=== PATIENT | female | born 1940 | race Caucasian/White ===

== ENCOUNTER 2016-12-29 06:11 | Inpatient (IN) | payer MEDICARE, BC ==
[2016-12-29] MEDS ORDERED: MORPHINE SULFATE 10 MG/ML INJ IV ONE (06:21)
[2016-12-29] MEDS ORDERED: NORMAL SALINE 1000 ML 1,000 ML IV ONE (06:21)
[2016-12-29] MEDS ORDERED: ONDANSETRON HCL INJ/PF 4 MG/2 ML SDV IV ONE (06:58)
[2016-12-29] MEDS ORDERED: ONDANSETRON HCL INJ/PF 4 MG/2 ML SDV ONE (07:02)
[2016-12-29 07:18] LABS: ABSOLUTE EOSINOPHILS # (AUTO) 0.1 10^3/uL (0.0-0.6); ABSOLUTE MONOCYTES (AUTO) 0.4 10^3/uL (0.1-1.4); ABSOLUTE NEUT (AUTO) 11.7 10^3/uL (1.7-8.2); BASOPHILS % (AUTO) 0.2 % (0-2); EOSINOPHILS % (AUTO) 0.4 % (0-6); HEMATOCRIT 38.1 % (36.0-47.0); HEMOGLOBIN 12.9 g/dL (12.0-15.5); HGB HCT DIFFERENCE 0.6; LYMPHOCYTES % (AUTO) 13.8 % (13-45); MEAN CORPUSCULAR HEMOGLOBIN 31.6 pg (27.0-33.4); MEAN CORPUSCULAR HGB CONC 33.7 g/dL (32.0-36.0); MEAN CORPUSCULAR VOLUME 94 fl (80-97); MONOCYTES % (AUTO) 2.5 % (3-13); RED BLOOD COUNT 4.07 10^6/uL (3.72-5.28); RED CELL DISTRIBUTION WIDTH 14.9 % (11.5-14.0); SEGMENTED NEUTROPHILS % (AUTO) 83.1 % (42-78); WHITE BLOOD COUNT 14.1 10^3/uL (4.0-10.5)
--- NOTE | 2016-12-29 07:25 | ER Document Report ---
ED General - General Chief Complaint: Abdominal Pain >50 Stated Complaint: FLANK PAIN Time Seen by Provider: 12/29/16 06:14 Mode of Arrival: Medic Information source: Patient Notes: 76-year-old female who was admitted during for small bowel obstruction presents with complaints of abdominal pain that radiates to her right clavicle. Patient states she has had the gallbladder taken out denies any fevers or chills TRAVEL OUTSIDE OF THE [place] IN LAST 30 DAYS: No - HPI Onset: Just prior to arrival - 2 hours prior to arrival Onset/Duration: Sudden Quality of pain: Sharp Severity: Moderate Pain Level: 2 Associated symptoms: Nausea Exacerbated by: Denies Relieved by: Denies Similar symptoms previously: Yes Recently seen / treated by doctor: Yes - Related Data Allergies/Adverse Reactions: Sulfa (Sulfonamide Antibiotics) Allergy (Unknown, Verified 05/25/11 11:16) rash acetaminophen [From Percocet] Adverse Reaction (Verified 03/12/14 14:09) Hallucinations oxycodone HCl [From Percocet] Adverse Reaction (Verified 03/12/14 14:09) Hallucinations Past Medical History - Social History Smoking Status: Never Smoker Cigarette use (# per day): No Chew tobacco use (# tins/day): No Smoking Education Provided: No Family History: Reviewed & Not Pertinent Patient has suicidal ideation: No Patient has homicidal ideation: No - Past Medical History Cardiac Medical History: Reports: Hx Hypercholesterolemia Denies: Hx Coronary Artery Disease, Hx Heart Attack, Hx Hypertension Pulmonary Medical History: Denies: Hx Asthma, Hx Bronchitis, Hx COPD, Hx Pneumonia Neurological Medical History: Denies: Hx Cerebrovascular Accident, Hx Seizures Endocrine Medical History: Reports: Hx Diabetes Mellitus Type 2 Renal/ Medical History: Denies: Hx Peritoneal Dialysis Musculoskeltal Medical History: Reports Hx Arthritis Psychiatric Medical History: Denies: Hx Depression Past Surgical History: Reports: Hx Hysterectomy. Denies: Hx Pacemaker - Immunizations Hx Diphtheria, Pertussis, Tetanus Vaccination: No Hx Pneumococcal Vaccination: 05/21/15 Review of Systems - Review of Systems Notes: REVIEW OF SYSTEMS: CONSTITUTIONAL : Denies fever, chills, or sweats. Denies recent illness. EENT: Denies eye, ear, throat, or mouth pain or symptoms. Denies nasal or sinus congestion or discharge. Denies throat, tongue, or mouth swelling or difficulty swallowing. CARDIOVASCULAR: Denies chest pain. Denies palpitations or racing or irregular heart beat. Denies ankle edema. RESPIRATORY: Denies cough, cold, or chest congestion. Denies shortness of breath, difficulty breathing, or wheezing. GASTROINTESTINAL: Abdominal pain nausea GENITOURINARY: Denies difficulty urinating, painful urination, burning, frequency, blood in urine, or discharge. FEMALE GENITOURINARY: Denies vaginal bleeding, heavy or abnormal periods, irregular periods. Denies vaginal discharge or odor. MUSCULOSKELETAL: Denies back or neck pain or stiffness. Denies joint pain or swelling. SKIN: Denies rash, lesions or sores. HEMATOLOGIC : Denies easy bruising or bleeding. LYMPHATIC: Denies swollen, enlarged glands. NEUROLOGICAL: Denies confusion or altered mental status. Denies passing out or loss of consciousness. Denies dizziness or lightheadedness. Denies headache. Denies weakness or paralysis or loss of use of either side. Denies problems with gait or speech. Denies sensory loss, numbness, or tingling. Denies seizures. PSYCHIATRIC: Denies anxiety or stress. Denies depression, suicidal ideation, or homicidal ideation. ALL OTHER SYSTEMS REVIEWED AND NEGATIVE. PHYSICAL EXAMINATION: GENERAL: Well-appearing, well-nourished and in mild distress. HEAD: Atraumatic, normocephalic. EYES: Pupils equal round and reactive to light, extraocular movements intact, conjunctiva are normal. ENT: Nares patent, oropharynx clear without exudates. Moist mucous membranes. NECK: Normal range of motion, supple without lymphadenopathy LUNGS: Breath sounds clear to auscultation bilaterally and equal. No wheezes rales or rhonchi. HEART: Regular rate and rhythm without murmurs ABDOMEN: Firm mildly distended abdomen Female : deferred Musculoskeletal: Normal range of motion, no pitting or edema. No cyanosis. NEUROLOGICAL: Cranial nerves grossly intact. Normal speech, normal gait. Normal sensory, motor exams PSYCH: Normal mood, normal affect. SKIN: Warm, Dry, normal turgor, no rashes or lesions noted. Dictation was performed using [employer] voice recognition software Physical Exam - Vital signs Vitals: Temp Pulse Resp BP Pulse Ox 97.8 F 68 18 113/53 L 98 12/29/16 06:18 12/29/16 06:18 12/29/16 06:18 12/29/16 06:18 12/29/16 06:18 Course - Re-evaluation Re-evalutation: 12/29/16 07:25 Initial concern is for perforation versus bowel obstruction, patient unfortunately refuses to drink contrast was immediately seen by myself upon arrival by EMS, orders results are pending at this time 12/29/16 08:33 CT is consistent with a perforation, patient was discussed with the surgeon who will be taking her to the operating room immediately Antibiotics have been ordered - Vital Signs Vital signs: Temp Pulse Resp BP Pulse Ox 97.8 F 68 18 113/53 L 98 12/29/16 06:18 12/29/16 06:18 12/29/16 06:18 12/29/16 06:18 12/29/16 06:18 - Laboratory Result Diagrams: 12/29/16 06:46 12/29/16 06:46 Laboratory results interpreted by me: 12/29/16 12/29/16 06:46 06:46 WBC 14.1 H RDW 14.9 H Seg Neutrophils % 83.1 H Monocytes % 2.5 L Absolute Neutrophils 11.7 H BUN 30 H Est GFR (Non-Af Amer) 56 L Glucose 137 H Direct Bilirubin 0.5 H Total Protein 5.5 L - Diagnostic Test Radiology reviewed: Image reviewed, Reports reviewed - Perforation Discharge - Discharge Clinical Impression: Perforation bowel Abdominal pain Qualifiers: Abdominal location: generalized Qualified Code(s): R10.84 - Generalized abdominal pain Condition: Critical Disposition: ADMITTED INPATIENT Admitting Provider: Surgicalist Unit Admitted: Surgical Floor Referrals: BELÉN MIN MD [Primary Care Provider] - Follow up as needed
[2016-12-29 07:26] LABS: ALANINE AMINOTRANSFERASE 20 U/L (9-52); ALBUMIN 3.5 g/dL (3.5-5.0); ALKALINE PHOSPHATASE 73 U/L (38-126); ANION GAP 9 (5-19); ASPARTATE AMINO TRANSFERASE 17 U/L (14-36); BILIRUBIN,DIRECT 0.5 mg/dL (0.0-0.4); BILIRUBIN,TOTAL 0.6 mg/dL (0.2-1.3); BLOOD UREA NITROGEN 30 mg/dL (7-20); CALCIUM 10.1 mg/dL (8.4-10.2); CARBON DIOXIDE 27 mmol/L (22-30); CHLORIDE 101 mmol/L (98-107); CREATININE RESULT 0.97 mg/dL (0.52-1.25); GLUCOSE 137 mg/dL (75-110); POTASSIUM 4.1 mmol/L (3.6-5.0); SODIUM 137.3 mmol/L (137-145); TOTAL PROTEIN 5.5 g/dL (6.3-8.2)
[2016-12-29] MEDS ORDERED: ERTAPENEM SODIUM INJ 1 GM VIAL IV ONE (08:28)
--- NOTE | 2016-12-29 08:34 | RADIOLOGY REPORT (SQ) ---
EXAM DESCRIPTION: CT ABD/PELVIS WITH IV ONLY COMPLETED DATE/TIME: 12/29/2016 8:04 am REASON FOR STUDY: abd pain COMPARISON: 07/09/2009 TECHNIQUE: CT scan of the abdomen and pelvis performed using helical scanning technique with dynamic intravenous contrast injection. No oral contrast. Images reviewed with lung, soft tissue, and bone windows. Reconstructed coronal and sagittal MPR images reviewed. Delayed images for evaluation of the urinary system also acquired. All images stored on PACS. All CT scanners at this facility use dose modulation, iterative reconstruction, and/or weight based d osing when appropriate to reduce radiation dose to as low as reasonably achievable (ALARA). [facility]: Dose Right [facility]: CareDose [facility]: Dose Right [facility]: Teradose 4D [facility]: Energy Points CONTRAST TYPE AND DOSE: contrast/concentration: Isovue 370.00 mg/ml; Total Contrast Delivered: 83.0 ml; Total Saline Delivered: 68.0 ml RENAL FUNCTION: BUN 30 creatinine 1.0 RADIATION DOSE: Up-to-date CT equipment and radiation dose reduction techniques were employed. CTDIv ol: 11.2 - 16.0 mGy. DLP: 1456 mGy-cm.. LIMITATIONS: None. FINDINGS: LOWER CHEST: Cardiomegaly. Hiatal hernia. LIVER: Normal size. No masses. No dilated ducts. SPLEEN: Normal size. No focal lesions. PANCREAS: No masses. No significant calcifications. No adjacent inflammation or peripancreatic fluid collections. Pancreatic duct not dilated. GALLBLADDER: Surgically absent. ADRENAL GLANDS: No significant masses or asymmetry. RIGHT KIDNEY AND URETER: No solid masses. No significant calcifications. No hydronephrosis or hyd roureter. LEFT KIDNEY AND URETER: No solid masses. No significant calcifications. No hydronephrosis or hydr oureter. AORTA AND VESSELS: No aneurysm. RETROPERITONEUM: No retroperitoneal adenopathy, hemorrhage or masses. BOWEL AND PERITONEAL CAVITY: Pneumoperitoneum. No evidence of bowel obstruction. Clips left upper q uadrant and right lower quadrant. Small amount of ascites. APPENDIX: Not visualized. PELVIS: Small amount of free fluid. ABDOMINAL WALL: No masses. No hernias. BONES: No significant or acute findings. OTHER: No other significant finding. IMPRESSION: Pneumoperitoneum, most likely due to perforated gastric or duodenal ulcer. COMMENT: Pertinent findings on the imaging study reported as a CRITICAL RESULT to AGUILA MCDERMOTT DO at08:29 on 12/29/2016. Category of Critical Result: Pneumoperitoneum. TECHNICAL DOCUMENTATION: JOB ID: [id number] Quality ID # [id number]: Final reports with documentation of one or more dose reduction techniques (e.g., Au tomated exposure control, adjustment of the mA and/or kV according to patient size, use of iterative reconstruction technique) 2010 [employer]- All Rights Reserved
[2016-12-29] MEDS ORDERED: NORMAL SALINE 1000 ML 2,000 ML IV ONE (09:15)
--- NOTE | 2016-12-29 09:28 | HISTORY AND PHYSICAL E ---
History and Physical NAME: VINOD MCCARTHY : 1940 AGE: 76Y ADMITTED: 12/29/2016 ROOM: CHIEF COMPLAINT: Abdominal pains. HISTORY OF PRESENT ILLNESS: This is a 76-year-old female complained of abdominal pain around 0430 hours this morning. This was so severe that the patient basically went to the emergency room. CAT scan of the abdomen revealed pneumoperitoneum. Her white count is elevated to 14,000. PAST MEDICAL HISTORY: 1. History of gastric ulcer. 2. Cardiac medical history of hypercholesterolemia. 3. Pulmonary, denies any asthma, bronchitis. 4. Neurologic history, no CVA or seizures. 5. Endocrine, history of diabetes mellitus type 2 off medications at this time. History of hypothyroidism taking Synthroid. 6. Renal/, no dysuria. 7. Musculoskeletal, reports arthritis. 8. Psychiatric history, denies depression. PAST SURGICAL HISTORY: History of hysterectomy for ovarian cancer in 2007 and has had chemotherapy for this. REVIEW OF SYSTEMS: CONSTITUTIONAL: Denies any fever, chills or sweats. EENT: Denies sore throat. Admits to having difficulty hearing and wears eyeglasses. Denies nasal or sinus congestion or discharge. CARDIOVASCULAR: Denies any chest pains. RESPIRATORY: Denies cough or colds. GASTROINTESTINAL: As in HPI, complaining of severe abdominal pains with nausea. GENITOURINARY: Denies dysuria. FEMALE GENITOURINARY: No vaginal bleeding. MUSCULOSKELETAL: Denies any neck pains or joint pains. SKIN: Denies any rash. HEMATOLOGIC: No easy bruisability. LYMPHATIC: Denies swollen glands or enlarged glands. NEUROLOGICAL: Denies confusion or altered mental status. PSYCHIATRIC: Denies anxiety or stress. ALLERGIES: 1. SULFA. 2. PERCOCET. 3. OXYCODONE. SOCIAL HISTORY: Denies smoking, drinking or alcohol use. PHYSICAL EXAMINATION: GENERAL: A well-developed, well-nourished 76-year-old female, alert and oriented complaining of severe abdominal pains. HEENT/NECK: Neck is supple. No thyromegaly. LUNGS: Clear. HEART: Regular rate and rhythm. ABDOMEN: With some guarding and diffuse tenderness, more in the right upper quadrant and epigastric areas. EXTREMITIES: No edema. CAT scan of the abdomen showed free air in the abdomen likely from a gastric ulcer. She had a history of a partial small bowel obstruction Labor Day and no evidence of any obstruction on the CAT scan today. IMPRESSION: 1. Perforated bowel likely from gastric ulcer. 2. History of diabetes mellitus type 2 on no medications at this time. 3. History of hypothyroidism on Synthroid. 4. History of hypercholesterolemia on anticholesterol medication. 5. History of ovarian cancer post total hysterectomy and still being followed at [facility] every year, next appointment will be in January. PLAN: 1. Patient being hydrated right now and started on IV antibiotics. 2. Will need emergency exploratory laparotomy and repair of perforation. DICTATING PHYSICIAN: MELQUIADES BAUMAN M.D. [id number] PHY#: [id number] ID: [id number] JOB#: [id number] ACCT: [id number] cc:MELQUIADES BAUMAN M.D. >
[2016-12-29] MEDS ORDERED: HYDROMORPHONE HCL INJ/PF 2 MG/ML AMPULE IV ONE (09:30)
[2016-12-29] MEDS ORDERED: MIDAZOLAM 2 MG/2 ML INJ ONE (09:33)
[2016-12-29] MEDS ORDERED: FENTANYL CITRATE INJ/PF 250 MCG/5 ML AMPULE ONE (09:33)
[2016-12-29] MEDS ORDERED: PROPOFOL INJ 200 MG/20 ML VIAL IV ONE (09:34)
[2016-12-29] MEDS ORDERED: EPHEDRINE SULFATE INJ 50 MG/1 ML AMPULE ONE (09:34)
[2016-12-29 10:00] LABS: APPEARANCE,URINE CLEAR; BILIRUBIN,URINE NEGATIVE (NEGATIVE); GLUCOSE, URINE NEGATIVE (NEGATIVE); KETONES,URINE NEGATIVE (NEGATIVE); LEUKOCYTE ESTERASE,URINE NEGATIVE (NEGATIVE); NITRITE,URINE NEGATIVE (NEGATIVE); PROTEIN,URINE NEGATIVE (NEGATIVE); UROBILINOGEN,URINE NEGATIVE mg/dL (<2.0)
[2016-12-29] MEDS ORDERED: KETAMINE HCL INJ 500 MG/10 ML VIAL ONE (10:30)
[2016-12-29] MEDS ORDERED: PROMETHAZINE HCL INJ 25 MG/1 ML VIAL IV PRN ×2 (10:55)
[2016-12-29] MEDS ORDERED: MORPHINE SULFATE 10 MG/ML INJ IV PRN (10:55)
[2016-12-29] MEDS ORDERED: FENTANYL CITRATE INJ/PF 100 MCG/2 ML AMPUL IV PRN ×3 (10:55)
[2016-12-29] MEDS ORDERED: DIPHENHYDRAMINE HCL 50 MG/ML VIAL IV PRN (10:55)
[2016-12-29] MEDS ORDERED: ROCURONIUM BROMIDE INJ 50 MG/5 ML VIAL IV ONE (15:54)
[2016-12-29] MEDS ORDERED: SUCCINYLCHOLINE CHLORIDE INJ 200 MG/10 ML VIAL ONE (15:54)
[2016-12-29] MEDS ORDERED: PROPOFOL 100 ML IV ONE (16:01)
[2016-12-29] MEDS ORDERED: ENOXAPARIN SODIUM INJ 40 MG/0.4 ML DISP.SYRIN SUBCUT ONE (17:00)
--- NOTE | 2016-12-29 17:28 | RADIOLOGY REPORT (SQ) ---
EXAM DESCRIPTION: CHEST SINGLE VIEW COMPLETED DATE/TIME: 12/29/2016 5:20 pm REASON FOR STUDY: ETT/NG placement COMPARISON: 03/11/2014 EXAM PARAMETERS: NUMBER OF VIEWS: One view. TECHNIQUE: Single frontal radiographic view of the chest acquired. RADIATION DOSE: NA LIMITATIONS: None. FINDINGS: LUNGS AND PLEURA: No infiltrates or masses. There may be a minimal left pleural effusion. MEDIASTINUM AND HILAR STRUCTURES: No masses. Contour normal. HEART AND VASCULAR STRUCTURES: Heart normal in size. Normal vasculature. BONES: No acute findings. HARDWARE: An endotracheal tube has its tip at the level of the top of the aortic arch, about 4 cm fro m the carlos. An NG tube extends to the body of the stomach. OTHER: No other significant finding. IMPRESSION: Minimal left pleural effusion. Tube placement as described. TECHNICAL DOCUMENTATION: JOB ID: [id number]
[2016-12-29] MEDS: PROPOFOL 100 ML IV PRN ×2 (17:43→23:54)
[2016-12-29] MEDS ORDERED: NORMAL SALINE 1000 ML 1,000 ML IV PRN (18:49)
[2016-12-29 19:06] LABS: HEMOGLOBIN 13.4 g/dL (12.0-15.5); HGB HCT DIFFERENCE 0.2; MEAN CORPUSCULAR HEMOGLOBIN 31.8 pg (27.0-33.4); MEAN CORPUSCULAR HGB CONC 33.4 g/dL (32.0-36.0); MEAN CORPUSCULAR VOLUME 95 fl (80-97); WHITE BLOOD COUNT 10.6 10^3/uL (4.0-10.5)
[2016-12-29 19:19] LABS: ARTERIAL BLOOD BASE EXCESS -8.6 mmol/L; ARTERIAL BLOOD O2 SATURATION 97.8 % (94-98)
[2016-12-29 19:24] LABS: BASOPHILS % (MANUAL) 0 % (0-2); EOSINOPHILS % (MANUAL) 0 % (0-6); LYMPHOCYTES % (MANUAL) 1 % (13-45); TOTAL CELLS COUNTED 100
[2016-12-29 19:26] LABS: ANISOCYTOSIS SLIGHT; OVALOCYTES 1+; PLATELET CLUMPS PRESENT; POIKILOCYTOSIS SLIGHT; POLYCHROMASIA SLIGHT; SCHISTOCYTES SLIGHT
[2016-12-29 19:27] LABS: BAND NEUTROPHILS % (MANUAL) 19 % (3-5)
--- NOTE | 2016-12-29 19:43 | OPERATIVE REPORT E ---
Operative Report NAME: VINOD MCCARTHY : 1940 AGE: 76Y DATE OF SURGERY: 12/29/2016 ROOM: 607 PREOPERATIVE DIAGNOSES: 1. Perforated gastric ulcer. 2. Recent history of small bowel obstruction that partially resolved spontaneously, happened Labor Day. POSTOPERATIVE DIAGNOSES: 1. Perforated gastric ulcer. 2. Recent history of small bowel obstruction that partially resolved spontaneously, happened Labor Day. 3. Extensive adhesions. OPERATION: 1. Repair of perforated gastric ulcer with omental patch. 2. Extensive enterolysis. 3. Small bowel resection. SURGEON: MELQUIADES BAUMAN M.D. INDICATIONS: This is a 76-year-old female who apparently was admitted to [facility] on Labor Day for bowel obstruction. She was discharged but the family claims that she can only eat pureed food. Last night she ate a regular diet and at 4:30 this morning, complained of severe abdominal pains. She was immediately brought to the emergency room, where a CAT scan of the abdomen revealed a pneumoperitoneum likely from a perforated gastric ulcer. The patient had history of gastric ulcer. DESCRIPTION OF PROCEDURE: After adequate general anesthesia, patient was placed in supine position and the abdomen prepped and draped in the usual sterile fashion. Appropriate timeout was then obtained. Next, a midline incision was made from the xiphoid to just below the umbilicus. Abdominal cavity was then entered and there is a lot of cloudy fluid noted. With the use of a Bookwalter retractor, the perforation on the anterior aspect of the stomach wall close to the pylorus was then noted. A small perforation about maybe 2 to 3 mm with a lot of firm area around the perforation. A couple of sutures using 2-0 silk were used to close the perforation. A piece of omentum was then used as a patch over the perforation using 2-0 Vicryl. Following this, the abdominal cavity was then irrigated with at least 3 L of saline. However, on further exploration the patient did have extensive adhesions started on the abdominal wall opposite the previous hysterectomy incision for her ovarian CA in 2007. Adhesions were lysed and the incision extended down to the pubis. A lot of adhesions noted and this was actually in the area of the right lower quadrant more towards the area of the right, lateral to the bladder. This was lysed gingerly and wearing a headlight for better visibility. Unfortunately, a long area of the bowel wall was denuded though not completely opening the bowel. Only the mucosa appears to be intact for at least a distance of about 5 cm. Because of this, this section of the bowel was divided and subsequently reapproximated with a stapling device in a functional yuty-tw-unap anastomosis. The defect in the mesentery was then reapproximated with interrupted sutures using 2-0 Vicryl. Extensive enterolysis was then further carried out together with adhesions towards the area of the sigmoid colon. These adhesions were lysed. It took at least 2 hours to release all the adhesions. I did not see any obvious evidence of malignancy or mass. After the adhesiolysis and resection of small bowel, the abdominal cavity was then irrigated with at least 4 L of saline until return flow was clear. The NG tube in the stomach was left close to the repair. The patient also had a previous laparoscopic gallbladder surgery and there was also a little adhesion due to this that was also lysed. There was evidence of partial obstruction since the proximal small bowel to the adhesions on the abdominal wall was dilated, and distal to it the bowel appears to be partially collapsed. Following this and the irrigation, a piece Seprafilm was placed in the pelvis where the adhesion was noted. Incidentally during dissection, there was a little opening in what appears to be the left iliac vein, and this was controlled with a single suture using 3-0 Prolene. Also another Seprafilm was then placed on top of the small bowel. Also the small bowel was run from the cecum all the way into the ligament of Treitz and noted to be intact. The appendix was noted to be normal and left in place. The fascial defect was then closed with running suture using a single arm #1 PDS starting from both ends and meeting and tying together just above the umbilicus. The subcu was then copiously irrigated with saline solution. There was a little leak of small bowel contents prior to the anastomosis of the small bowel. This was taken care of by copious irrigation of 4 to 5 L of saline and also irrigation of the subcu layer. The skin was then closed with alma delia. Sterile dressings were placed over the operative site. Needle, instrument, and sponge count were all correct and estimated blood loss was about 200 mL. Patient was brought to the Intensive Care Unit in guarded condition, still intubated. DICTATING PHYSICIAN: MELQUIADES BAUMAN M.D. [id number] PHY#: [id number] ID: [id number] JOB#: [id number] ACCT: [id number] cc:MELQUIADES BAUMAN M.D. >
[2016-12-29] MEDS ORDERED: HYDROMORPHONE HCL INJ/PF 2 MG/ML AMPULE ONE (19:55)
[2016-12-29] MEDS ORDERED: HYDROMORPHONE HCL INJ/PF 2 MG/ML AMPULE IV PRN (19:55)
[2016-12-29] MEDS ORDERED: VANCOMYCIN HCL 1,500 MG in DEXTROSE 5%-WATER 250 ML IV ONE (20:00)
[2016-12-29] MEDS ORDERED: PHENYLEPHRINE HCL INJ/PF 10 MG/1 ML SDV ONE (20:28)
[2016-12-29] MEDS: DEXTROSE 5%-WATER 250 ML with PHENYLEPHRINE HCL 40 MG IV PRN ×2 (20:48)
[2016-12-29] MEDS ORDERED: NORMAL SALINE 500 ML IV ONE (21:30)
[2016-12-29] MEDS: CLINDAMYCIN 600 MG/D5W RTU 600 MG/50 ML RTUPB IV SCH (22:48)
[2016-12-29] MEDS: FAMOTIDINE INJ/PF 20 MG/2 ML SDV IV SCH (22:48)
[2016-12-29] MEDS: IMIPENEM/CILASTATIN SODIUM 500 MG in DEXTROSE 5%-WATER 100 ML IV SCH (23:50)
[2016-12-30 04:21] LABS: ABSOLUTE LYMPHOCYTES (AUTO) 1.2 10^3/uL (0.5-4.7); ABSOLUTE MONOCYTES (AUTO) 0.5 10^3/uL (0.1-1.4); ABSOLUTE NEUT (AUTO) 11.5 10^3/uL (1.7-8.2); BASOPHILS % (AUTO) 0.1 % (0-2); HEMATOCRIT 37.8 % (36.0-47.0); HEMOGLOBIN 12.7 g/dL (12.0-15.5); HGB HCT DIFFERENCE 0.3; LYMPHOCYTES % (AUTO) 9.4 % (13-45); MEAN CORPUSCULAR HEMOGLOBIN 31.4 pg (27.0-33.4); MEAN CORPUSCULAR HGB CONC 33.6 g/dL (32.0-36.0); MEAN CORPUSCULAR VOLUME 93 fl (80-97); MONOCYTES % (AUTO) 3.4 % (3-13); RED BLOOD COUNT 4.05 10^6/uL (3.72-5.28); RED CELL DISTRIBUTION WIDTH 15.2 % (11.5-14.0); SEGMENTED NEUTROPHILS % (AUTO) 87.1 % (42-78); WHITE BLOOD COUNT 13.2 10^3/uL (4.0-10.5)
[2016-12-30 04:32] LABS: ALANINE AMINOTRANSFERASE 23 U/L (9-52); ALBUMIN 2.5 g/dL (3.5-5.0); ALKALINE PHOSPHATASE 49 U/L (38-126); ANION GAP 9 (5-19); ASPARTATE AMINO TRANSFERASE 24 U/L (14-36); BILIRUBIN,DIRECT 0.5 mg/dL (0.0-0.4); BILIRUBIN,TOTAL 0.7 mg/dL (0.2-1.3); BLOOD UREA NITROGEN 26 mg/dL (7-20); CALCIUM 8.6 mg/dL (8.4-10.2); CARBON DIOXIDE 22 mmol/L (22-30); CHLORIDE 105 mmol/L (98-107); CREATININE RESULT 0.96 mg/dL (0.52-1.25); GLUCOSE 135 mg/dL (75-110); MAGNESIUM 2.1 mg/dL (1.6-2.3); SODIUM 136.1 mmol/L (137-145); TOTAL PROTEIN 4.6 g/dL (6.3-8.2)
[2016-12-30 04:51] LABS: POTASSIUM 5.2 mmol/L (3.6-5.0)
[2016-12-30] MEDS: CLINDAMYCIN 600 MG/D5W RTU 600 MG/50 ML RTUPB IV SCH ×3 (05:41→22:17)
[2016-12-30] MEDS: IMIPENEM/CILASTATIN SODIUM 500 MG in DEXTROSE 5%-WATER 100 ML IV SCH ×4 (05:42→23:59)
--- NOTE | 2016-12-30 08:19 | RADIOLOGY REPORT (SQ) ---
EXAM DESCRIPTION: CHEST SINGLE VIEW COMPLETED DATE/TIME: 12/30/2016 6:51 am REASON FOR STUDY: vent management COMPARISON: 12/29/2016. EXAM PARAMETERS: NUMBER OF VIEWS: One view. TECHNIQUE: Single frontal radiographic view of the chest acquired. RADIATION DOSE: NA LIMITATIONS: None. FINDINGS: LUNGS AND PLEURA: Mild interstitial prominence and mild pleural thickening in the apices. No focal infiltrates, masses or pneumothorax. No pleural effusion. MEDIASTINUM AND HILAR STRUCTURES: No masses. Contour normal. HEART AND VASCULAR STRUCTURES: Heart normal in size. Normal vasculature. BONES: No acute findings. HARDWARE: Stable endotracheal tube and nasogastric tube. OTHER: No other significant finding. IMPRESSION: STABLE APPEARANCE OF THE CHEST. NO ACUTE FINDINGS. TECHNICAL DOCUMENTATION: JOB ID: [id number]
[2016-12-30] MEDS: PROPOFOL 100 ML IV PRN ×4 (08:49→23:59)
--- NOTE | 2016-12-30 08:53 | PROGRESS NOTE E ---
Progress Note NAME: VINOD MCCARTHY : 1940 AGE: 76Y DATE: 12/30/2016 ROOM: 607 SUBJECTIVE: She is a 76-year-old female who has a past medical history of gastric ulcer in the past, hypercholesterolemia. She was admitted for perforated ulcer and underwent emergency laparotomy, and intubated and mechanically ventilated. The patient is currently on pressor and IV fluids as well as antibiotics. OBJECTIVE: GENERAL: Patient looks very sick on ventilator. VITAL SIGNS: Temperature 98.1, heart rate is 94, blood pressure 112/47, respirations 100% on FiO2 of 40. HEENT: Head normocephalic, atraumatic. Pupils round, reactive to light and accommodation bilaterally. Extraocular movements intact. Ears: Tympanic membranes intact bilaterally. No discharge from the ears. No discharge from the nose. NECK: Supple. No increased JVD. No thyromegaly. No lymphadenopathy. CARDIOVASCULAR: Normal S1, S2. Regular rate and rhythm. No murmur. No gallop. RESPIRATORY: Bilateral crackles. ABDOMEN: Soft. MUSCULOSKELETAL: No edema. NEUROLOGICAL: Awake, but sedated. LABORATORY: White blood count 13, hemoglobin 12.7, hematocrit 37. Sodium 136, potassium 5.2, creatinine 0.9. ASSESSMENT: 1. PERFORATED VISCUS STATUS POST LAPAROTOMY. 2. SEPSIS FROM PERFORATED GASTRIC ULCER. 3. HYPOTHYROIDISM. 4. RESPIRATORY FAILURE ON VENTILATOR. 5. HISTORY OF OVARIAN CANCER STATUS POST HYSTERECTOMY. 6. LEUKOCYTOSIS. PLAN: Continue antibiotics, IV fluids, and pressors. Labs tomorrow morning. The patient is on ventilator and needs to stay for management of perforated viscus and she is on antibiotics. DICTATING PHYSICIAN: OSEAS JEREZ M.D. [id number] PHY#: [id number] ID: [id number] JOB#: [id number] ACCT: [id number] cc: > MTDD
[2016-12-30] MEDS: ENOXAPARIN SODIUM INJ 40 MG/0.4 ML DISP.SYRIN SUBCUT SCH (10:30)
[2016-12-30] MEDS: FAMOTIDINE INJ/PF 20 MG/2 ML SDV IV SCH (10:31)
--- NOTE | 2016-12-30 12:40 | RADIOLOGY REPORT (SQ) ---
EXAM DESCRIPTION: CHEST SPECIAL VIEW COMPLETED DATE/TIME: 12/30/2016 12:20 pm REASON FOR STUDY: Central Line Placement COMPARISON: 12/30/2016. EXAM PARAMETERS: NUMBER OF VIEWS: One view. TECHNIQUE: Single frontal radiographic view of the chest acquired. RADIATION DOSE: NA LIMITATIONS: None. FINDINGS: LUNGS AND PLEURA: No opacities, masses or pneumothorax. No pleural effusion. MEDIASTINUM AND HILAR STRUCTURES: No masses. Contour normal. HEART AND VASCULAR STRUCTURES: Heart normal in size. Normal vasculature. BONES: No acute findings. HARDWARE: Catheter on the right side with the tip at the level of the superior vena cava. Stable end otracheal tube and nasogastric tube. OTHER: No other significant finding. IMPRESSION: INTERVAL CATHETER PLACEMENT DESCRIBED. OTHERWISE NO CHANGE IN APPEARANCE OF THE CHES T. TECHNICAL DOCUMENTATION: JOB ID: [id number]
[2016-12-30 12:57] LABS: ARTERIAL BLOOD BASE EXCESS 0.9 mmol/L; ARTERIAL BLOOD O2 SATURATION 97.3 % (94-98)
[2016-12-30] MEDS ORDERED: NORMAL SALINE INJ/PF 0.9% 10 ML SDV IV PRN (13:20)
--- NOTE | 2016-12-30 14:48 | PROGRESS NOTE E ---
Progress Note NAME: VINOD MCCARTHY : 1940 AGE: 76Y DATE: 12/30/2016 ROOM: 607 SUBJECTIVE: This is her first postop day post repair of perforated gastric ulcer and extensive enterolysis and resection of denuded small bowel. She is still intubated and appears to be still in pains requiring Dilaudid. She also needed pressors when her blood pressure went down to about 55 systolic last night. Her blood pressure right now is improved. Her NG drainage is still considerable, putting out a total of 800 mL since last night. She most likely will need to be continued on intubation for another day. OBJECTIVE: Her abdomen is soft, just mildly distended. PLAN: 1. Continue with IV antibiotics. 2. Continue wean from the pressors. 3. I placed a central line through the right subclavian vein which she tolerated well. Pressors can be placed through the central line. 4. Continue with pain medications and antibiotics. 5. I asked the hospitalist to help us with the medical management and Dr. Montague for pulmonary management and vent management. DICTATING PHYSICIAN: MELQUIADES BAUMAN M.D. [id number] PHY#: [id number] ID: [id number] JOB#: [id number] ACCT: [id number] cc: >
--- NOTE | 2016-12-30 16:28 | OPERATIVE REPORT E ---
Operative Report NAME: VINOD MCCARTHY : 1940 AGE: 76Y DATE OF SURGERY: 12/29/2016 ROOM: 607 PREOPERATIVE DIAGNOSIS: Poor veins for IV access and patient still intubated and needing pressors and other medications after a difficult extensive operation yesterday. POSTOPERATIVE DIAGNOSIS: Poor veins for IV access and patient still intubated and needing pressors and other medications after a difficult extensive operation yesterday. SURGEON: MELQUIADES BAUMAN M.D. PROCEDURE: The patient was placed in the lithotomy position with the patient still intubated. Patient had some sedation given. Next, the right subclavian vein area at the clavicle was then prepped and draped in the usual sterile fashion. Local anesthesia was then infiltrated and the right subclavian vein punctured and the guidewire placed through the needle into the presumed superior vena cava. The needle was removed and the puncture site enlarged. A triple-lumen catheter was inserted through the guidewire and threaded up to a distance of 15 cm. It was then anchored to the skin with 3-0 silk. The three ports aspirated blood easily and injected saline easily. Next a Biopatch was then placed at the insertion site and a transparent dressing placed. A chest x-ray will be obtained. The patient tolerated the procedure well. DICTATING PHYSICIAN: MELQUIADES BAUMAN M.D. [id number] PHY#: [id number] ID: [id number] JOB#: [id number] ACCT: [id number] cc:MELQUIADES BAUMAN M.D. >
--- NOTE | 2016-12-30 18:10 | PDOC PROGRESS REPORT ---
Subjective Progress Note for:: 12/30/16 Subjective:: intubated sedated but restless Physical Exam Vital Signs: Temp Pulse Resp BP Pulse Ox 98.1 F 75 13 112/47 L 100 12/30/16 07:58 12/30/16 08:44 12/29/16 15:55 12/30/16 06:26 12/30/16 08:05 Intake & Output 12/29/16 12/30/16 12/31/16 06:59 06:59 06:59 Intake Total 1596 Output Total 625 515 Balance 971 -515 Weight 79.1 kg General appearance: PRESENT: no acute distress, disheveled, well-developed Head exam: PRESENT: atraumatic, normocephalic Eye exam: PRESENT: conjunctiva pale, EOMI Mouth exam: PRESENT: dry mucosa, neck supple, tongue midline, other - ET tube Neck exam: ABSENT: carotid bruit, JVD, lymphadenopathy, thyromegaly Respiratory exam: PRESENT: crackles, decreased breath sounds, prolonged expiratory phas, rhonchi, symmetrical, unlabored, wheezes. ABSENT: retraction, stridor, tachypnea Cardiovascular exam: PRESENT: irregular rhythm Pulses: PRESENT: normal radial pulses GI/Abdominal exam: PRESENT: other - sp surgery midline wound dry dressing. ABSENT: diminished bowel sounds, distended, guarding, hyperactive bowel sounds, hypoactive bowel sounds, mass, organolmegaly, rebound, rigid, soft, tenderness Rectal exam: PRESENT: deferred Gentrourinary exam: PRESENT: indwelling catheter Musculoskeletal exam: PRESENT: normal inspection Skin exam: PRESENT: dry, warm Results Laboratory Results: 12/30/16 03:54 12/30/16 03:54 12/29/16 12/29/16 12/29/16 18:44 18:44 18:57 WBC 10.6 H RBC 4.20 Hgb 13.4 Hct 40.0 MCV 95 MCH 31.8 MCHC 33.4 RDW 15.0 H Plt Count 215 Seg Neutrophils % Not Reportable Lymphocytes % Not Reportable Monocytes % Not Reportable Eosinophils % Not Reportable Basophils % Not Reportable Absolute Neutrophils Not Reportable Absolute Lymphocytes Not Reportable Absolute Monocytes Not Reportable Absolute Eosinophils Not Reportable Absolute Basophils Not Reportable Carbonic Acid 1.25 HCO3/H2CO3 Ratio 14:1 ABG pH 7.26 L ABG pCO2 41.5 ABG pO2 119.8 H ABG HCO3 18.0 L ABG O2 Saturation 97.8 ABG Base Excess -8.6 FiO2 40% Sodium Potassium Chloride Carbon Dioxide Anion Gap BUN Creatinine Est GFR ( Amer) Est GFR (Non-Af Amer) Glucose Lactic Acid 7.1 H Calcium Magnesium Total Bilirubin AST ALT Alkaline Phosphatase Total Protein Albumin 12/30/16 12/30/16 12/30/16 03:54 03:54 05:30 WBC 13.2 H RBC 4.05 Hgb 12.7 Hct 37.8 MCV 93 MCH 31.4 MCHC 33.6 RDW 15.2 H Plt Count 227 Seg Neutrophils % 87.1 H Lymphocytes % 9.4 L Monocytes % 3.4 Eosinophils % 0.0 Basophils % 0.1 Absolute Neutrophils 11.5 H Absolute Lymphocytes 1.2 Absolute Monocytes 0.5 Absolute Eosinophils 0.0 Absolute Basophils 0.0 Carbonic Acid 0.73 L HCO3/H2CO3 Ratio 27:1 ABG pH 7.54 H ABG pCO2 24.1 L ABG pO2 131.1 H ABG HCO3 20.1 ABG O2 Saturation 99.0 H ABG Base Excess -1.0 FiO2 40% Sodium 136.1 L Potassium 5.2 H D Chloride 105 Carbon Dioxide 22 Anion Gap 9 BUN 26 H Creatinine 0.96 Est GFR ( Amer) > 60 Est GFR (Non-Af Amer) 56 L Glucose 135 H Lactic Acid Calcium 8.6 Magnesium 2.1 Total Bilirubin 0.7 AST 24 ALT 23 Alkaline Phosphatase 49 Total Protein 4.6 L Albumin 2.5 L Impressions: Abdomen/Pelvis CT 12/29/16 06:21 IMPRESSION: Pneumoperitoneum, most likely due to perforated gastric or duodenal ulcer. Chest X-Ray 12/30/16 06:00 IMPRESSION: STABLE APPEARANCE OF THE CHEST. NO ACUTE FINDINGS. Assessment & Plan - Diagnosis (1) Perforation bowel Is this a current diagnosis for this admission?: Yes Plan: as per surgery (2) Septic shock Is this a current diagnosis for this admission?: Yes Plan: WBC 13 K;left shift w/o bands currently on neosyneprine I=16L O=14L - Time Critical Time spent with patient: 35 or more minutes - 40 min
--- NOTE | 2016-12-30 18:20 | PDOC CONSULTATION ---
Consultation Consult Date: 12/29/16 Attending physician:: MELQUIADES BAUMAN Consult reason:: septic shock History of Present Illness Admission Date/PCP: 12/29/16 15:41 BELÉN MIN MD History of Present Illness: no family at bedside all information from chart VINOD MCCARTHY is a 76 year old female persented with abdominal pain and hypotension found to have perforated viscous repaired by surgery;currently intubated,hypotensive,acidotic Past Medical History Cardiac Medical History: Reports: Hyperlipidema Denies: Coronary Artery Disease, Myocardial Infarction, Hypertension Pulmonary Medical History: Denies: Asthma, Bronchitis, Chronic Obstructive Pulmonary Disease (COPD), Pneumonia Neurological Medical History: Denies: Seizures Endocrine Medical History: Reports: Diabetes Mellitus Type 2 Musculoskeltal Medical History: Reports: Arthritis Psychiatric Medical History: Denies: Depression Hematology: Reports: Anemia - yrs ago Past Surgical History Past Surgical History: Reports: Hysterectomy Denies: Pacemaker Social History Information Source: [facility] Records Smoking Status: Unknown if Ever Smoked Frequency of Alcohol Use: None Hx Recreational Drug Use: No Hx Prescription Drug Abuse: No - Advance Directive Resuscitation Status: Full Code Family History Family History: Reviewed & Not Pertinent Parental Family History Reviewed: No Children Family History Reviewed: No Sibling(s) Family History Reviewed.: No Medication/Allergy Home Medications: Cetirizine HCl [Zyrtec 10 mg Tablet] 1 tab PO DAILY 12/29/16 Gabapentin [Neurontin 300 mg Capsule] 300 mg PO Q8HP PRN 12/29/16 Hydrocodone/Acetaminophen [[place] 10-325 mg Tablet] 0.5 tab PO Q8HP PRN 12/29/16 Levothyroxine Sodium [Levo-T] 50 mcg PO DAILY 12/29/16 Meloxicam [Mobic] 15 mg PO DAILY 12/29/16 [place]-3 Fatty Acids/Fish Oil [Theragran-M 1,200 mg Softgel] 1 cap PO DAILY 12/29 Ranitidine HCl [Zantac] 300 mg PO DAILY 12/29/16 Rosuvastatin Calcium [Crestor 20 mg Tablet] 20 mg PO QHS 12/29/16 Valsartan [Diovan 80 mg Tablet] 80 mg PO QPM 12/29/16 Allergies/Adverse Reactions: Sulfa (Sulfonamide Antibiotics) Allergy (Unknown, Verified 05/25/11 11:16) rash acetaminophen [From Percocet] Adverse Reaction (Verified 03/12/14 14:09) Hallucinations oxycodone HCl [From Percocet] Adverse Reaction (Verified 03/12/14 14:09) Hallucinations Review of Systems ROS unobtainable: Due to endotracheal tube Physical Exam Vital Signs: Temp Pulse Resp BP Pulse Ox 98.1 F 75 13 112/47 L 100 12/30/16 07:58 12/30/16 08:44 12/29/16 15:55 12/30/16 06:26 12/30/16 08:05 Intake & Output 12/29/16 12/30/16 12/31/16 06:59 06:59 06:59 Intake Total 1596 Output Total 625 515 Balance 971 -515 Weight 79.1 kg General appearance: PRESENT: no acute distress, disheveled, well-developed, well -nourished Head exam: PRESENT: atraumatic, normocephalic Eye exam: PRESENT: conjunctiva pale Mouth exam: PRESENT: dry mucosa, neck supple - ET tube in place, tongue midline , other Neck exam: ABSENT: carotid bruit, JVD, lymphadenopathy, thyromegaly Respiratory exam: PRESENT: decreased breath sounds, prolonged expiratory phas, rhonchi, symmetrical, unlabored. ABSENT: retraction, stridor, tachypnea, wheezes Cardiovascular exam: PRESENT: RRR, +S1, +S2 Pulses: PRESENT: normal radial pulses GI/Abdominal exam: PRESENT: other - s/p surgery midline wound dry and intact Rectal exam: PRESENT: deferred Gentrourinary exam: PRESENT: indwelling catheter Musculoskeletal exam: PRESENT: normal inspection Skin exam: PRESENT: dry, warm Results Laboratory Results: 12/30/16 03:54 12/30/16 03:54 12/29/16 12/29/16 12/29/16 18:44 18:44 18:57 WBC 10.6 H RBC 4.20 Hgb 13.4 Hct 40.0 MCV 95 MCH 31.8 MCHC 33.4 RDW 15.0 H Plt Count 215 Seg Neutrophils % Not Reportable Lymphocytes % Not Reportable Monocytes % Not Reportable Eosinophils % Not Reportable Basophils % Not Reportable Absolute Neutrophils Not Reportable Absolute Lymphocytes Not Reportable Absolute Monocytes Not Reportable Absolute Eosinophils Not Reportable Absolute Basophils Not Reportable Carbonic Acid 1.25 HCO3/H2CO3 Ratio 14:1 ABG pH 7.26 L ABG pCO2 41.5 ABG pO2 119.8 H ABG HCO3 18.0 L ABG O2 Saturation 97.8 ABG Base Excess -8.6 FiO2 40% Sodium Potassium Chloride Carbon Dioxide Anion Gap BUN Creatinine Est GFR ( Amer) Est GFR (Non-Af Amer) Glucose Lactic Acid 7.1 H Calcium Magnesium Total Bilirubin AST ALT Alkaline Phosphatase Total Protein Albumin 12/30/16 12/30/16 12/30/16 03:54 03:54 05:30 WBC 13.2 H RBC 4.05 Hgb 12.7 Hct 37.8 MCV 93 MCH 31.4 MCHC 33.6 RDW 15.2 H Plt Count 227 Seg Neutrophils % 87.1 H Lymphocytes % 9.4 L Monocytes % 3.4 Eosinophils % 0.0 Basophils % 0.1 Absolute Neutrophils 11.5 H Absolute Lymphocytes 1.2 Absolute Monocytes 0.5 Absolute Eosinophils 0.0 Absolute Basophils 0.0 Carbonic Acid 0.73 L HCO3/H2CO3 Ratio 27:1 ABG pH 7.54 H ABG pCO2 24.1 L ABG pO2 131.1 H ABG HCO3 20.1 ABG O2 Saturation 99.0 H ABG Base Excess -1.0 FiO2 40% Sodium 136.1 L Potassium 5.2 H D Chloride 105 Carbon Dioxide 22 Anion Gap 9 BUN 26 H Creatinine 0.96 Est GFR ( Amer) > 60 Est GFR (Non-Af Amer) 56 L Glucose 135 H Lactic Acid Calcium 8.6 Magnesium 2.1 Total Bilirubin 0.7 AST 24 ALT 23 Alkaline Phosphatase 49 Total Protein 4.6 L Albumin 2.5 L Impressions: Abdomen/Pelvis CT 12/29/16 06:21 IMPRESSION: Pneumoperitoneum, most likely due to perforated gastric or duodenal ulcer. Chest X-Ray 12/30/16 06:00 IMPRESSION: STABLE APPEARANCE OF THE CHEST. NO ACUTE FINDINGS. Assessment & Plan - Diagnosis (1) Perforation bowel Is this a current diagnosis for this admission?: Yes Plan: as per surgery (2) Septic shock Is this a current diagnosis for this admission?: Yes Plan: vasopressor;maintain MAP>65;resp compensate for severe lactic acidosis;abx - Time Critical Time spent with patient: 35 or more minutes - 50 min
[2016-12-30 19:15] LABS: ARTERIAL BLOOD BASE EXCESS 1.2 mmol/L
[2016-12-30] MEDS: PANTOPRAZOLE SODIUM 40 MG VIAL IV SCH (22:17)
[2016-12-31] MEDS: IMIPENEM/CILASTATIN SODIUM 500 MG in DEXTROSE 5%-WATER 100 ML IV SCH ×3 (05:21→18:54)
[2016-12-31] MEDS: CLINDAMYCIN 600 MG/D5W RTU 600 MG/50 ML RTUPB IV SCH ×3 (05:22→22:07)
[2016-12-31] MEDS: PROPOFOL 100 ML IV PRN ×2 (05:22→07:43)
[2016-12-31 06:06] LABS: ARTERIAL BLOOD BASE EXCESS 2.4 mmol/L; ARTERIAL BLOOD O2 SATURATION 95.8 % (94-98)
[2016-12-31 06:19] LABS: ALANINE AMINOTRANSFERASE 23 U/L (9-52); ALKALINE PHOSPHATASE 55 U/L (38-126); ANION GAP 6 (5-19); ASPARTATE AMINO TRANSFERASE 14 U/L (14-36); BILIRUBIN,DIRECT 0.5 mg/dL (0.0-0.4); BILIRUBIN,TOTAL 0.6 mg/dL (0.2-1.3); BLOOD UREA NITROGEN 20 mg/dL (7-20); CALCIUM 8.2 mg/dL (8.4-10.2); CARBON DIOXIDE 25 mmol/L (22-30); CHLORIDE 106 mmol/L (98-107); CREATININE RESULT 0.88 mg/dL (0.52-1.25); GLUCOSE 110 mg/dL (75-110); PHOSPHORUS 4.2 mg/dL (2.5-4.5); POTASSIUM 4.1 mmol/L (3.6-5.0); TOTAL PROTEIN 3.9 g/dL (6.3-8.2)
[2016-12-31 06:30] LABS: ABSOLUTE LYMPHOCYTES (AUTO) 0.9 10^3/uL (0.5-4.7); ABSOLUTE MONOCYTES (AUTO) 0.3 10^3/uL (0.1-1.4); ABSOLUTE NEUT (AUTO) 11.2 10^3/uL (1.7-8.2); BASOPHILS % (AUTO) 0.1 % (0-2); EOSINOPHILS % (AUTO) 0.3 % (0-6); HEMATOCRIT 28.1 % (36.0-47.0); LYMPHOCYTES % (AUTO) 7.6 % (13-45); MEAN CORPUSCULAR HGB CONC 34.6 g/dL (32.0-36.0); MEAN CORPUSCULAR VOLUME 92 fl (80-97); MONOCYTES % (AUTO) 2.3 % (3-13); RED BLOOD COUNT 3.04 10^6/uL (3.72-5.28); RED CELL DISTRIBUTION WIDTH 15.1 % (11.5-14.0); SEGMENTED NEUTROPHILS % (AUTO) 89.7 % (42-78); WHITE BLOOD COUNT 12.4 10^3/uL (4.0-10.5)
[2016-12-31 06:50] LABS: HEMOGLOBIN 9.7 g/dL (12.0-15.5)
--- NOTE | 2016-12-31 07:11 | RADIOLOGY REPORT (SQ) ---
EXAM DESCRIPTION: CHEST SINGLE VIEW COMPLETED DATE/TIME: 12/31/2016 6:55 am REASON FOR STUDY: sepsis COMPARISON: Chest x-ray 12/30/2016. EXAM PARAMETERS: NUMBER OF VIEWS: One view TECHNIQUE: Single frontal radiograph of the chest. RADIATION DOSE: N/A LIMITATIONS: Patient positioning. FINDINGS: TEMPORARY SUPPORT DEVICES:ETT in expected location. NG tube courses below the left chris-d iaphragm in to the stomach. PICC catheter from right peripheral approach is in expected location. LUNGS AND PLEURA: The patient is rotated. There is blunting of the left costophrenic angle suggestiv e of a small left pleural effusion. There is airspace opacity at the left lung base. MEDIASTINUM AND HILAR STRUCTURES: No masses. Contour normal. HEART AND VASCULAR STRUCTURES: Heart size normal. No overt vascular congestion. BONES: Degenerative changes in the spine. IMPRESSION: Small left pleural effusion and adjacent airspace opacity at the left lung base. TECHNICAL DOCUMENTATION: JOB ID: [id number] [employer]- All Rights Reserved
[2016-12-31] MEDS: DEXTROSE 5%-WATER 250 ML with PHENYLEPHRINE HCL 40 MG IV PRN ×2 (07:43)
--- NOTE | 2016-12-31 08:08 | PROGRESS NOTE E ---
Progress Note NAME: VINOD MCCARTHY : 1940 AGE: 76Y DATE: 12/31/2016 ROOM: 607 SUBJECTIVE: The patient is a 76-year-old female, who was admitted with perforated ulcer and underwent laparotomy. She is on mechanical ventilation. She is currently on IV fluids and pressor. Her blood pressure is running low. Hemoglobin dropped, but she received IV fluids yesterday. OBJECTIVE: GENERAL: Patient remains critically sick. She is on ventilator. VITAL SIGNS: Blood pressure 106/79, heart rate 86, respirations 100. HEENT: Head normocephalic, atraumatic. Pupils round, reactive to light and accommodation bilaterally. Extraocular movements intact. Ears: Tympanic membranes intact bilaterally. No discharge from the ears. No discharge from the nose. CARDIOVASCULAR: Normal S1, S2. Regular rate and rhythm. No murmur. No gallop. RESPIRATORY: Coarse breathing. ABDOMEN: Soft, nontender. LABORATORY: White blood count 12.2, hemoglobin 9.7, creatinine 0.8, pH 7.42, PO2 73 PCO2 24. Chest x-ray unremarkable. ASSESSMENT: 1. PERFORATED VISCUS FROM GASTRIC ULCER, STATUS LAPAROTOMY. 2. SEPSIS FROM PERFORATED GASTRIC ULCER. 3. HYPOTHYROIDISM. 4. RESPIRATORY FAILURE ON VENTILATOR. 5. HISTORY OF OVARIAN CANCER. 6. LEUKOCYTOSIS FROM SEPSIS, IMPROVED. PLAN: Continue IV fluids and pressors. Continue with antibiotics. Labs tomorrow morning. DICTATING PHYSICIAN: OSEAS JEREZ M.D. [id number] PHY#: [id number] ID: [id number] JOB#: [id number] ACCT: [id number] cc: > MTDD
[2016-12-31] MEDS: PANTOPRAZOLE SODIUM 40 MG VIAL IV SCH ×2 (09:27→22:07)
[2016-12-31] MEDS: ENOXAPARIN SODIUM INJ 40 MG/0.4 ML DISP.SYRIN SUBCUT SCH (09:28)
[2016-12-31] MEDS ORDERED: FUROSEMIDE INJ/PF 20 MG/2 ML SDV ONE (11:58)
[2016-12-31] MEDS ORDERED: FUROSEMIDE INJ/PF 20 MG/2 ML SDV IV ONE (13:00)
[2016-12-31] MEDS ORDERED: LORAZEPAM INJ 2 MG/1 ML VIAL ONE (16:17)
[2016-12-31] MEDS ORDERED: MORPHINE SULFATE 10 MG/ML INJ IV PRN (17:16)
[2016-12-31] MEDS ORDERED: LORAZEPAM INJ 2 MG/1 ML VIAL IV ONE (17:30)
--- NOTE | 2016-12-31 17:36 | RADIOLOGY REPORT (SQ) ---
EXAM DESCRIPTION: CHEST SINGLE VIEW COMPLETED DATE/TIME: 12/31/2016 5:18 pm REASON FOR STUDY: NG tube placement COMPARISON: None. EXAM PARAMETERS: NUMBER OF VIEWS: One view. TECHNIQUE: Single frontal radiographic view of the chest acquired. RADIATION DOSE: NA LIMITATIONS: None. FINDINGS: LUNGS AND PLEURA: Atelectasis or scarring noted in the right left lung base. No focal inf iltrates. Small lung volumes. MEDIASTINUM AND HILAR STRUCTURES: No masses. Contour normal. HEART AND VASCULAR STRUCTURES: Heart normal in size. Normal vasculature. BONES: No acute findings. HARDWARE: NG tube noted with tip in side hole projecting over the left upper quadrant. Right centra l venous catheter, unchanged. EKG leads overlie the chest. OTHER: No other significant finding. IMPRESSION: Right lung base atelectasis or scarring. No focal infiltrates. Small lung volumes. Guerra pport tubes and lines unchanged. TECHNICAL DOCUMENTATION: JOB ID: [id number]
--- NOTE | 2016-12-31 19:58 | OPERATIVE REPORT E ---
Operative Report NAME: VINOD MCCARTHY : 1940 AGE: 76Y DATE OF SURGERY: 12/31/2016 ROOM: 607 PREOPERATIVE DIAGNOSIS: Pulled out NG tube. POSTOPERATIVE DIAGNOSIS: Pulled out NG tube. OPERATION: Reinsertion of nasogastric tube. SURGEON: MELQUIADES BAUMAN M.D. INDICATION: This is a 76-year-old female who underwent repair of perforated gastric ulcer and extensive enterolysis with a segmental bowel resection. This afternoon at 1:00 p.m., her endotracheal tube was removed and NG tube noted to be around the endotracheal tube in the pharynx. When pulling out the endotracheal tube, the NG tube also got pulled out. The patient needed the NG tube to prevent gastric dilatation and causing a rupture of the repair that was done, and also she needs NG tube for small bowel ileus and suctioning the intestinal contents to prevent dilatation of the small bowel. DESCRIPTION OF PROCEDURE: The patient was placed in a semi-erect position and given a piece of ice chip. A 16 [place] NG tube that was lubricated was placed in the right nostril and threaded down into the esophagus, asking the patient to swallow. The patient did have a small dose of Ativan 0.5 mg IV since she was a little agitated prior to telling her we had to put back the NG tube. At any rate, the NG tube was put in nicely into the level of the stomach up to the 60 cm lala. It was then anchored to the nostril with adhesive tape. An x-ray of the abdomen will be done for proper placement. In the meantime, the patient needed to be in soft restraints on the arms to prevent her from pulling it out. The patient tolerated the procedure well. DICTATING PHYSICIAN: MELQUIADES BAUMAN M.D. [id number] PHY#: [id number] ID: [id number] JOB#: [id number] ACCT: [id number] cc:MELQUIADES BAUMAN M.D. >
[2016-12-31] MEDS: MORPHINE SULFATE 10 MG/ML INJ IV PRN (22:19)
[2017-01-01] MEDS: IMIPENEM/CILASTATIN SODIUM 500 MG in DEXTROSE 5%-WATER 100 ML IV SCH ×4 (00:51→17:20)
--- NOTE | 2017-01-01 03:23 | PROGRESS NOTE E ---
Progress Note NAME: VINOD MCCARTHY : 1940 AGE: 76Y DATE: ROOM: 607 SUBJECTIVE: This is the second postop day post repair of perforated gastric ulcer and extensive enterolysis and small bowel resection for a denuded area during the lysis of adhesions. She was extubated at 1:00 on 12/31/16. Unfortunately, the NG tube was coiled around the trach tube and needed to be pulled out when the endotracheal tube was removed. I placed a new NG tube around the 4 o'clock in the afternoon of 12/31/16, and since then has only drained about 100 mL. Her abdomen remains soft and with minimal distention, and the incision is clean and dry. No obvious significant tenderness. Her vital signs are stable. The heart rate is about 100. I increased the fluids to 100 mL/h. Urine output also improved after increasing her IV fluids, and the blood pressure is above 100 systolic. Her white count on 12/31/16 was 12.4, slightly lower than *------* which was 13.2. Her hemoglobin however dropped to 9.7 which may be partly due to the blood loss and the hemodilution. PLAN: Continue the NG tube to prevent any dilatation of the stomach which would may disrupt the repair. Continue IV antibiotics. NG tube should be in place for at least 5 days from the time of surgery. If she remains stable by the third postop day, consideration should be taken for possible hyperalimentation. She already has a triple lumen catheter that I inserted through the right subclavian vein and this can be used for Hyperal. DICTATING PHYSICIAN: MELQUIADES BAUMAN M.D. [id number] PHY#: [id number] ID: [id number] JOB#: [id number] ACCT: [id number] cc: >
[2017-01-01] MEDS: NORMAL SALINE 1000 ML 1,000 ML IV PRN ×2 (05:33→14:47)
[2017-01-01] MEDS: CLINDAMYCIN 600 MG/D5W RTU 600 MG/50 ML RTUPB IV SCH ×3 (05:33→21:22)
[2017-01-01 06:21] LABS: ARTERIAL BLOOD BASE EXCESS 0.8 mmol/L; ARTERIAL BLOOD O2 SATURATION 97.3 % (94-98)
[2017-01-01 06:33] LABS: ALANINE AMINOTRANSFERASE 22 U/L (9-52); ALBUMIN 1.9 g/dL (3.5-5.0); ALKALINE PHOSPHATASE 47 U/L (38-126); ASPARTATE AMINO TRANSFERASE 15 U/L (14-36); BILIRUBIN,DIRECT 0.4 mg/dL (0.0-0.4); BILIRUBIN,TOTAL 0.6 mg/dL (0.2-1.3); BLOOD UREA NITROGEN 13 mg/dL (7-20); CALCIUM 8.1 mg/dL (8.4-10.2); CREATININE RESULT 0.88 mg/dL (0.52-1.25); GLUCOSE 88 mg/dL (75-110); MAGNESIUM 1.9 mg/dL (1.6-2.3); PHOSPHORUS 3.5 mg/dL (2.5-4.5); POTASSIUM 3.6 mmol/L (3.6-5.0); TOTAL PROTEIN 3.6 g/dL (6.3-8.2)
[2017-01-01 06:45] LABS: ANION GAP 3 (5-19); CARBON DIOXIDE 26 mmol/L (22-30); CHLORIDE 107 mmol/L (98-107); SODIUM 136.3 mmol/L (137-145)
--- NOTE | 2017-01-01 07:59 | RADIOLOGY REPORT (SQ) ---
EXAM DESCRIPTION: CHEST SINGLE VIEW COMPLETED DATE/TIME: 01/01/2017 6:58 am REASON FOR STUDY: septic shock COMPARISON: 12/31/2016. EXAM PARAMETERS: NUMBER OF VIEWS: One view. TECHNIQUE: Single frontal radiographic view of the chest acquired. RADIATION DOSE: NA LIMITATIONS: None. FINDINGS: LUNGS AND PLEURA: Mild interstitial markings. Blunting of bilateral costophrenic angles. Moderate lung volume. Small right infrahilar opacity and bi hilar fullness. MEDIASTINUM AND HILAR STRUCTURES: No masses. Contour normal. HEART AND VASCULAR STRUCTURES: Heart normal in size. Normal vasculature. BONES: No acute findings. HARDWARE: Right subclavian central line at the right atrium ; consider 3 cm retraction. Likely adequ ate NG tube obscured distally. OTHER: No other significant finding. IMPRESSION: No significant interval change. TECHNICAL DOCUMENTATION: JOB ID: [id number]
[2017-01-01 08:09] LABS: ABSOLUTE EOSINOPHILS # (AUTO) 0.1 10^3/uL (0.0-0.6); ABSOLUTE LYMPHOCYTES (AUTO) 0.9 10^3/uL (0.5-4.7); ABSOLUTE MONOCYTES (AUTO) 0.2 10^3/uL (0.1-1.4); ABSOLUTE NEUT (AUTO) 6.7 10^3/uL (1.7-8.2); BASOPHILS % (AUTO) 0.2 % (0-2); EOSINOPHILS % (AUTO) 0.9 % (0-6); HEMATOCRIT 22.7 % (36.0-47.0); HGB HCT DIFFERENCE 0.7; LYMPHOCYTES % (AUTO) 11.4 % (13-45); MEAN CORPUSCULAR HEMOGLOBIN 31.8 pg (27.0-33.4); MEAN CORPUSCULAR HGB CONC 34.2 g/dL (32.0-36.0); MEAN CORPUSCULAR VOLUME 93 fl (80-97); MONOCYTES % (AUTO) 2.1 % (3-13); RED BLOOD COUNT 2.44 10^6/uL (3.72-5.28); RED CELL DISTRIBUTION WIDTH 14.4 % (11.5-14.0); SEGMENTED NEUTROPHILS % (AUTO) 85.4 % (42-78); WHITE BLOOD COUNT 7.9 10^3/uL (4.0-10.5)
[2017-01-01 08:18] LABS: HEMOGLOBIN 7.8 g/dL (12.0-15.5)
[2017-01-01] MEDS ORDERED: NORMAL SALINE 250 ML IV PRN ×2 (08:25)
[2017-01-01] MEDS: ENOXAPARIN SODIUM INJ 40 MG/0.4 ML DISP.SYRIN SUBCUT SCH (09:06)
[2017-01-01] MEDS: PANTOPRAZOLE SODIUM 40 MG VIAL IV SCH ×2 (11:02→21:23)
[2017-01-01] MEDS: MAGNESIUM SULFATE/D5W 1 GM/100 ML RTUPB IV SCH ×2 (11:04→12:08)
--- NOTE | 2017-01-01 12:23 | PDOC PROGRESS REPORT ---
Subjective Progress Note for:: 01/01/17 Subjective:: Patient more interactive verbally today per nursing and family NGT functional Some abdominal pain Incision C/D/I No events overnight VS stable Drifting Hgb, replacement ordered by medicine Physical Exam Vital Signs: Temp Pulse Resp BP Pulse Ox 99.8 F 98 17 108/49 L 98 01/01/17 11:07 01/01/17 11:07 01/01/17 11:30 01/01/17 11:23 01/01/17 11:30 Intake & Output 12/31/16 01/01/17 01/02/17 06:59 06:59 06:59 Intake Total 4949 3174 0 Output Total 3360 4850 800 Balance 4768 -7092 -471 Weight 80.8 kg 77.8 kg General appearance: PRESENT: no acute distress Head exam: PRESENT: atraumatic, normocephalic Eye exam: PRESENT: conjunctiva pink Mouth exam: PRESENT: moist Neck exam: ABSENT: lymphadenopathy, tenderness, tracheal deviation Respiratory exam: PRESENT: clear to auscultation jose luis Cardiovascular exam: PRESENT: RRR Pulses: PRESENT: normal dorsalis pedis pul Vascular exam: PRESENT: normal capillary refill GI/Abdominal exam: PRESENT: hypoactive bowel sounds, soft, tenderness - appropriate postoperatively Extremities exam: PRESENT: +1 edema Neurological exam: PRESENT: awake, CN II-XII grossly intact Results Laboratory Results: 01/01/17 05:45 01/01/17 05:45 01/01/17 01/01/17 01/01/17 05:45 05:45 05:45 WBC RBC Hgb Hct MCV MCH MCHC RDW Plt Count Seg Neutrophils % Lymphocytes % Monocytes % Eosinophils % Basophils % Absolute Neutrophils Absolute Lymphocytes Absolute Monocytes Absolute Eosinophils Absolute Basophils Carbonic Acid 1.13 HCO3/H2CO3 Ratio 22:1 ABG pH 7.44 ABG pCO2 37.5 ABG pO2 91.6 ABG HCO3 24.9 ABG O2 Saturation 97.3 ABG Base Excess 0.8 FiO2 3 LITERS Sodium 136.3 L Potassium 3.6 Chloride 107 Carbon Dioxide 26 Anion Gap 3 L BUN 13 Creatinine 0.88 Est GFR ( Amer) > 60 Est GFR (Non-Af Amer) > 60 Glucose 88 Lactic Acid < 0.5 L Calcium 8.1 L Phosphorus 3.5 Magnesium 1.9 Total Bilirubin 0.6 AST 15 ALT 22 Alkaline Phosphatase 47 Total Protein 3.6 L Albumin 1.9 L Blood Type Antibody Screen 01/01/17 01/01/17 05:45 08:46 WBC 7.9 RBC 2.44 L Hgb 7.8 L Hct 22.7 L MCV 93 MCH 31.8 MCHC 34.2 RDW 14.4 H Plt Count 128 L Seg Neutrophils % 85.4 H Lymphocytes % 11.4 L Monocytes % 2.1 L Eosinophils % 0.9 Basophils % 0.2 Absolute Neutrophils 6.7 Absolute Lymphocytes 0.9 Absolute Monocytes 0.2 Absolute Eosinophils 0.1 Absolute Basophils 0.0 Carbonic Acid HCO3/H2CO3 Ratio ABG pH ABG pCO2 ABG pO2 ABG HCO3 ABG O2 Saturation ABG Base Excess FiO2 Sodium Potassium Chloride Carbon Dioxide Anion Gap BUN Creatinine Est GFR ( Amer) Est GFR (Non-Af Amer) Glucose Lactic Acid Calcium Phosphorus Magnesium Total Bilirubin AST ALT Alkaline Phosphatase Total Protein Albumin Blood Type O POSITIVE Antibody Screen NEGATIVE Impressions: Abdomen/Pelvis CT 12/29/16 06:21 IMPRESSION: Pneumoperitoneum, most likely due to perforated gastric or duodenal ulcer. Chest X-Ray 01/01/17 06:00 IMPRESSION: No significant interval change. Assessment & Plan - Diagnosis (1) Perforation bowel Is this a current diagnosis for this admission?: Yes Plan: Pain control Pulmonary toilet DVT/GI prophylaxis Monitor NGT ouput 2 days consider SBFT, discussed with Dr Logan Hemodynamically stable Adequate UOP Hgb drifting, on IV PPI, monitored and being replaced Continue IV antibiotics
--- NOTE | 2017-01-01 13:17 | PDOC PROGRESS REPORT ---
Subjective Progress Note for:: 01/01/17 Subjective:: intubated sedated Physical Exam Vital Signs: Temp Pulse Resp BP Pulse Ox 99.2 F 95 18 99/48 L 99 01/01/17 06:00 01/01/17 07:46 01/01/17 06:15 01/01/17 05:32 01/01/17 07:59 Intake & Output 12/31/16 01/01/17 01/02/17 06:59 06:59 06:59 Intake Total 4949 3174 Output Total 3360 4850 300 Balance 1589 -6076 -300 Weight 80.8 kg 77.8 kg General appearance: PRESENT: no acute distress, disheveled, well-developed, well -nourished Head exam: PRESENT: atraumatic, normocephalic Eye exam: PRESENT: conjunctiva pale Mouth exam: PRESENT: dry mucosa, neck supple, tongue midline Neck exam: ABSENT: carotid bruit, JVD, lymphadenopathy, thyromegaly Respiratory exam: PRESENT: crackles, decreased breath sounds, prolonged expiratory phas, rhonchi, symmetrical, unlabored. ABSENT: retraction, stridor, tachypnea Cardiovascular exam: PRESENT: RRR, +S1, +S2 Pulses: PRESENT: normal radial pulses GI/Abdominal exam: PRESENT: other - s/p surgery Rectal exam: PRESENT: deferred Gentrourinary exam: PRESENT: indwelling catheter Extremities exam: PRESENT: +1 edema Skin exam: PRESENT: dry, warm Results Laboratory Results: 01/01/17 05:45 01/01/17 01/01/17 01/01/17 05:45 05:45 05:45 Carbonic Acid 1.13 HCO3/H2CO3 Ratio 22:1 ABG pH 7.44 ABG pCO2 37.5 ABG pO2 91.6 ABG HCO3 24.9 ABG O2 Saturation 97.3 ABG Base Excess 0.8 FiO2 3 LITERS Sodium 136.3 L Potassium 3.6 Chloride 107 Carbon Dioxide 26 Anion Gap 3 L BUN 13 Creatinine 0.88 Est GFR ( Amer) > 60 Est GFR (Non-Af Amer) > 60 Glucose 88 Lactic Acid < 0.5 L Calcium 8.1 L Phosphorus 3.5 Magnesium 1.9 Total Bilirubin 0.6 AST 15 ALT 22 Alkaline Phosphatase 47 Total Protein 3.6 L Albumin 1.9 L Impressions: Abdomen/Pelvis CT 12/29/16 06:21 IMPRESSION: Pneumoperitoneum, most likely due to perforated gastric or duodenal ulcer. Chest X-Ray 01/01/17 06:00 IMPRESSION: No significant interval change. Assessment & Plan - Diagnosis (1) Perforation bowel Is this a current diagnosis for this admission?: Yes Plan: as per surgery (2) Septic shock Is this a current diagnosis for this admission?: Yes Plan: vasopressor;maintain MAP>65;resp compensate for severe lactic acidosis;abx (3) Anemia Is this a current diagnosis for this admission?: Yes Plan: 3 gram decrease in HGB compattable not with volume increase - Time Critical Time spent with patient: 35 or more minutes - 45 min
--- NOTE | 2017-01-01 13:44 | PDOC PROGRESS REPORT ---
Subjective Progress Note for:: 12/31/16 Subjective:: intubated sedated Physical Exam Vital Signs: Temp Pulse Resp BP Pulse Ox 99.6 F 93 13 139/53 H 99 12/31/16 09:53 12/31/16 09:53 12/29/16 15:55 12/31/16 10:10 12/31/16 10:15 Intake & Output 12/30/16 12/31/16 01/01/17 06:59 06:59 06:59 Intake Total 1596 4949 Output Total 625 3360 925 Balance 971 1589 -925 Weight 79.1 kg 80.8 kg General appearance: PRESENT: no acute distress, disheveled, well-developed. ABSENT: cooperative Head exam: PRESENT: atraumatic, normocephalic Eye exam: PRESENT: conjunctiva pale Mouth exam: PRESENT: dry mucosa, neck supple, tongue midline, other - ET tube Neck exam: ABSENT: carotid bruit, JVD, lymphadenopathy, thyromegaly Respiratory exam: PRESENT: decreased breath sounds, prolonged expiratory phas, rhonchi, symmetrical. ABSENT: stridor, tachypnea, unlabored Cardiovascular exam: PRESENT: RRR, +S1, +S2 Pulses: PRESENT: normal radial pulses GI/Abdominal exam: PRESENT: normal bowel sounds, soft. ABSENT: distended, guarding, mass, organolmegaly, rebound, tenderness Rectal exam: PRESENT: deferred Gentrourinary exam: PRESENT: indwelling catheter Musculoskeletal exam: PRESENT: normal inspection Skin exam: PRESENT: dry, warm Results Laboratory Results: 12/31/16 05:45 12/31/16 05:45 12/30/16 12/30/16 12/30/16 12:25 12:25 16:20 WBC RBC Hgb Hct MCV MCH MCHC RDW Plt Count Seg Neutrophils % Lymphocytes % Monocytes % Eosinophils % Basophils % Absolute Neutrophils Absolute Lymphocytes Absolute Monocytes Absolute Eosinophils Absolute Basophils Carbonic Acid 0.80 L HCO3/H2CO3 Ratio 28:1 ABG pH 7.54 H ABG pCO2 26.7 L ABG pO2 81.6 ABG HCO3 22.4 ABG O2 Saturation 97.3 ABG Base Excess 0.9 FiO2 24% Sodium Potassium Chloride Carbon Dioxide Anion Gap BUN Creatinine Est GFR ( Amer) Est GFR (Non-Af Amer) Glucose Lactic Acid 2.1 2.0 Calcium Phosphorus Magnesium Total Bilirubin AST ALT Alkaline Phosphatase Total Protein Albumin 12/30/16 12/31/16 12/31/16 19:02 05:45 05:45 WBC 12.4 H RBC 3.04 L Hgb 9.7 L D Hct 28.1 L MCV 92 MCH 32.0 MCHC 34.6 RDW 15.1 H Plt Count 185 Seg Neutrophils % 89.7 H Lymphocytes % 7.6 L Monocytes % 2.3 L Eosinophils % 0.3 Basophils % 0.1 Absolute Neutrophils 11.2 H Absolute Lymphocytes 0.9 Absolute Monocytes 0.3 Absolute Eosinophils 0.0 Absolute Basophils 0.0 Carbonic Acid 1.05 HCO3/H2CO3 Ratio 23:1 ABG pH 7.47 H ABG pCO2 34.8 L ABG pO2 85.0 ABG HCO3 24.6 ABG O2 Saturation 97.0 ABG Base Excess 1.2 FiO2 24% Sodium Potassium Chloride Carbon Dioxide Anion Gap BUN Creatinine Est GFR ( Amer) Est GFR (Non-Af Amer) Glucose Lactic Acid 1.0 Calcium Phosphorus Magnesium Total Bilirubin AST ALT Alkaline Phosphatase Total Protein Albumin 12/31/16 12/31/16 05:45 05:45 WBC RBC Hgb Hct MCV MCH MCHC RDW Plt Count Seg Neutrophils % Lymphocytes % Monocytes % Eosinophils % Basophils % Absolute Neutrophils Absolute Lymphocytes Absolute Monocytes Absolute Eosinophils Absolute Basophils Carbonic Acid 1.06 HCO3/H2CO3 Ratio 24:1 ABG pH 7.48 H ABG pCO2 35.1 ABG pO2 73.4 L ABG HCO3 25.7 ABG O2 Saturation 95.8 ABG Base Excess 2.4 FiO2 24% Sodium 137.0 Potassium 4.1 Chloride 106 Carbon Dioxide 25 Anion Gap 6 BUN 20 Creatinine 0.88 Est GFR ( Amer) > 60 Est GFR (Non-Af Amer) > 60 Glucose 110 Lactic Acid Calcium 8.2 L Phosphorus 4.2 Magnesium 2.0 Total Bilirubin 0.6 AST 14 ALT 23 Alkaline Phosphatase 55 Total Protein 3.9 L Albumin 2.0 L Impressions: Abdomen/Pelvis CT 12/29/16 06:21 IMPRESSION: Pneumoperitoneum, most likely due to perforated gastric or duodenal ulcer. Chest X-Ray 12/31/16 06:00 IMPRESSION: Small left pleural effusion and adjacent airspace opacity at the left lung base. Assessment & Plan - Diagnosis (1) Perforation bowel Is this a current diagnosis for this admission?: Yes (2) Septic shock Is this a current diagnosis for this admission?: Yes Plan: vasopressor;maintain MAP>65;abx (3) Respiratory failure Qualifiers: Chronicity: acute Is this a current diagnosis for this admission?: Yes Plan: Respiratory rate, minute ventilation, FiO2 and airway pressures suggest successful extubation will proceed with extubation - Time Critical Time spent with patient: 25-34 minutes
--- NOTE | 2017-01-01 14:38 | RADIOLOGY REPORT (SQ) ---
EXAM DESCRIPTION: CHEST SINGLE VIEW COMPLETED DATE/TIME: 01/01/2017 2:30 pm REASON FOR STUDY: SOB COMPARISON: 01/01/2017 and 12/31/2016. EXAM PARAMETERS: NUMBER OF VIEWS: One view. TECHNIQUE: Single frontal radiographic view of the chest acquired. RADIATION DOSE: NA LIMITATIONS: None. FINDINGS: LUNGS AND PLEURA: Stable appearance. Mild hilar fullness and faint basilar densities. No large effusions. No pneumothorax. MEDIASTINUM AND HILAR STRUCTURES: No masses. Contour normal. HEART AND VASCULAR STRUCTURES: Heart normal in size. Normal vasculature. BONES: No acute findings. HARDWARE: Central line and nasogastric tube. OTHER: No other significant finding. IMPRESSION: NO CHANGE IN APPEARANCE OF THE CHEST. TECHNICAL DOCUMENTATION: JOB ID: [id number]
[2017-01-01 14:48] LABS: PATH REVIEW PATHOLOGIST REVIEWED
[2017-01-01] MEDS: MORPHINE SULFATE 10 MG/ML INJ IV PRN ×2 (18:27→22:09)
--- NOTE | 2017-01-01 18:50 | PDOC PROGRESS REPORT ---
Subjective Progress Note for:: 01/01/17 Subjective:: No new issues Physical Exam Vital Signs: Temp Pulse Resp BP Pulse Ox 98 F 105 H 21 H 125/56 L 96 01/01/17 16:30 01/01/17 18:00 01/01/17 18:00 01/01/17 18:00 01/01/17 18:00 Intake & Output 12/31/16 01/01/17 01/02/17 06:59 06:59 06:59 Intake Total 4949 3174 300 Output Total 3360 4850 3175 Balance 2260 -5828 -2915 Weight 80.8 kg 77.8 kg General appearance: PRESENT: no acute distress, well-developed, well-nourished Head exam: PRESENT: atraumatic, normocephalic Eye exam: PRESENT: conjunctiva pink, EOMI. ABSENT: scleral icterus Ear exam: PRESENT: normal external ear exam Mouth exam: PRESENT: moist, tongue midline Neck exam: ABSENT: carotid bruit, JVD, lymphadenopathy, thyromegaly Respiratory exam: PRESENT: clear to auscultation jose luis. ABSENT: rales, rhonchi, wheezes Cardiovascular exam: PRESENT: RRR. ABSENT: diastolic murmur, rubs, systolic murmur Pulses: PRESENT: normal dorsalis pedis pul Vascular exam: PRESENT: normal capillary refill GI/Abdominal exam: PRESENT: other Rectal exam: PRESENT: deferred Extremities exam: PRESENT: full ROM. ABSENT: calf tenderness, clubbing, pedal edema Neurological exam: PRESENT: alert, awake, oriented to person, oriented to place , oriented to time, oriented to situation, CN II-XII grossly intact. ABSENT: motor sensory deficit Psychiatric exam: PRESENT: appropriate affect, normal mood. ABSENT: homicidal ideation, suicidal ideation Skin exam: PRESENT: dry, warm. ABSENT: cyanosis, rash Results Laboratory Results: 01/01/17 05:45 01/01/17 05:45 01/01/17 01/01/17 01/01/17 05:45 05:45 05:45 WBC RBC Hgb Hct MCV MCH MCHC RDW Plt Count Seg Neutrophils % Lymphocytes % Monocytes % Eosinophils % Basophils % Absolute Neutrophils Absolute Lymphocytes Absolute Monocytes Absolute Eosinophils Absolute Basophils Carbonic Acid 1.13 HCO3/H2CO3 Ratio 22:1 ABG pH 7.44 ABG pCO2 37.5 ABG pO2 91.6 ABG HCO3 24.9 ABG O2 Saturation 97.3 ABG Base Excess 0.8 FiO2 3 LITERS Sodium 136.3 L Potassium 3.6 Chloride 107 Carbon Dioxide 26 Anion Gap 3 L BUN 13 Creatinine 0.88 Est GFR ( Amer) > 60 Est GFR (Non-Af Amer) > 60 Glucose 88 Lactic Acid < 0.5 L Calcium 8.1 L Phosphorus 3.5 Magnesium 1.9 Total Bilirubin 0.6 AST 15 ALT 22 Alkaline Phosphatase 47 Total Protein 3.6 L Albumin 1.9 L Blood Type Antibody Screen 01/01/17 01/01/17 05:45 08:46 WBC 7.9 RBC 2.44 L Hgb 7.8 L Hct 22.7 L MCV 93 MCH 31.8 MCHC 34.2 RDW 14.4 H Plt Count 128 L Seg Neutrophils % 85.4 H Lymphocytes % 11.4 L Monocytes % 2.1 L Eosinophils % 0.9 Basophils % 0.2 Absolute Neutrophils 6.7 Absolute Lymphocytes 0.9 Absolute Monocytes 0.2 Absolute Eosinophils 0.1 Absolute Basophils 0.0 Carbonic Acid HCO3/H2CO3 Ratio ABG pH ABG pCO2 ABG pO2 ABG HCO3 ABG O2 Saturation ABG Base Excess FiO2 Sodium Potassium Chloride Carbon Dioxide Anion Gap BUN Creatinine Est GFR ( Amer) Est GFR (Non-Af Amer) Glucose Lactic Acid Calcium Phosphorus Magnesium Total Bilirubin AST ALT Alkaline Phosphatase Total Protein Albumin Blood Type O POSITIVE Antibody Screen NEGATIVE Impressions: Abdomen/Pelvis CT 12/29/16 06:21 IMPRESSION: Pneumoperitoneum, most likely due to perforated gastric or duodenal ulcer. Chest X-Ray 01/01/17 06:00 IMPRESSION: No significant interval change. Assessment & Plan - Diagnosis (1) Septic shock Is this a current diagnosis for this admission?: Yes Plan: Secondary to Perforated Bowel: Clindamycin and Imipenem/Cilastatin (2) Anemia Is this a current diagnosis for this admission?: Yes Plan: Secondary to Acute Blood Loss: Pt given 2 units of PRBC. Will check CBC. (3) Abdominal pain Qualifiers: Abdominal location: generalized Qualified Code(s): R10.84 - Generalized abdominal pain Is this a current diagnosis for this admission?: Yes Plan: Secondary of Perforated Bowel: Will continue antibiotics. (4) Perforation bowel Is this a current diagnosis for this admission?: Yes Plan: S/P surgery: Will continue antibiotics. (5) Respiratory failure Qualifiers: Chronicity: acute Is this a current diagnosis for this admission?: Yes Plan: Resolved. (6) Hypotension Qualifiers: Hypotension type: unspecified hypotension type Qualified Code(s): I95.9 - Hypotension, unspecified Is this a current diagnosis for this admission?: Yes Plan: Resolving with IVFs - Time Time Spent with patient: 15-24 minutes
[2017-01-01 21:01] LABS: HEMATOCRIT 28.8 % (36.0-47.0); HGB HCT DIFFERENCE 1.5; MEAN CORPUSCULAR HEMOGLOBIN 31.5 pg (27.0-33.4); MEAN CORPUSCULAR HGB CONC 35.2 g/dL (32.0-36.0); MEAN CORPUSCULAR VOLUME 90 fl (80-97); RED BLOOD COUNT 3.21 10^6/uL (3.72-5.28); RED CELL DISTRIBUTION WIDTH 16.2 % (11.5-14.0); WHITE BLOOD COUNT 7.8 10^3/uL (4.0-10.5)
[2017-01-01 21:03] LABS: HEMOGLOBIN 10.1 g/dL (12.0-15.5)
[2017-01-01 22:05] LABS: BASOPHILS % (MANUAL) 0 % (0-2); EOSINOPHILS % (MANUAL) 0 % (0-6); LYMPHOCYTES % (MANUAL) 3 % (13-45); TOTAL CELLS COUNTED 100
[2017-01-01 22:06] LABS: ANISOCYTOSIS 1+
[2017-01-02] MEDS: NORMAL SALINE 1000 ML 1,000 ML IV PRN ×2 (00:01→09:47)
[2017-01-02] MEDS: MORPHINE SULFATE 10 MG/ML INJ IV PRN ×4 (04:08→19:58)
[2017-01-02] MEDS: IMIPENEM/CILASTATIN SODIUM 500 MG in DEXTROSE 5%-WATER 100 ML IV SCH ×6 (05:01→23:23)
[2017-01-02] MEDS: CLINDAMYCIN 600 MG/D5W RTU 600 MG/50 ML RTUPB IV SCH (05:02)
[2017-01-02 05:36] LABS: ABSOLUTE EOSINOPHILS # (AUTO) 0.1 10^3/uL (0.0-0.6); ABSOLUTE LYMPHOCYTES (AUTO) 0.5 10^3/uL (0.5-4.7); ABSOLUTE MONOCYTES (AUTO) 0.2 10^3/uL (0.1-1.4); ABSOLUTE NEUT (AUTO) 4.9 10^3/uL (1.7-8.2); BASOPHILS % (AUTO) 0.3 % (0-2); EOSINOPHILS % (AUTO) 1.4 % (0-6); HEMATOCRIT 26.2 % (36.0-47.0); HEMOGLOBIN 9.2 g/dL (12.0-15.5); HGB HCT DIFFERENCE 1.4; LYMPHOCYTES % (AUTO) 8.5 % (13-45); MEAN CORPUSCULAR HEMOGLOBIN 31.7 pg (27.0-33.4); MEAN CORPUSCULAR HGB CONC 35.2 g/dL (32.0-36.0); MEAN CORPUSCULAR VOLUME 90 fl (80-97); MONOCYTES % (AUTO) 3.4 % (3-13); RED BLOOD COUNT 2.92 10^6/uL (3.72-5.28); SEGMENTED NEUTROPHILS % (AUTO) 86.4 % (42-78); WHITE BLOOD COUNT 5.6 10^3/uL (4.0-10.5)
[2017-01-02 05:40] LABS: ALANINE AMINOTRANSFERASE 17 U/L (9-52); ALBUMIN 1.9 g/dL (3.5-5.0); ALKALINE PHOSPHATASE 47 U/L (38-126); ANION GAP 5 (5-19); ASPARTATE AMINO TRANSFERASE 15 U/L (14-36); BILIRUBIN,DIRECT 0.4 mg/dL (0.0-0.4); BILIRUBIN,TOTAL 1.2 mg/dL (0.2-1.3); BLOOD UREA NITROGEN 10 mg/dL (7-20); CALCIUM 8.1 mg/dL (8.4-10.2); CARBON DIOXIDE 26 mmol/L (22-30); CHLORIDE 107 mmol/L (98-107); CREATININE RESULT 0.72 mg/dL (0.52-1.25); GLUCOSE 80 mg/dL (75-110); POTASSIUM 3.3 mmol/L (3.6-5.0); SODIUM 137.8 mmol/L (137-145); TOTAL PROTEIN 3.6 g/dL (6.3-8.2)
[2017-01-02] MEDS: PANTOPRAZOLE SODIUM 40 MG VIAL IV SCH (09:48)
--- NOTE | 2017-01-02 10:20 | PDOC PROGRESS REPORT ---
Subjective Progress Note for:: 01/02/17 Subjective:: No events overnight s/p PRBCs x2 yesterday given low Hgb POD 4 s/p ex lap VANESSA, gramm patch gastric ulcer Awaiting POD [address] Del Real, with intact function then will D/C NGT and proceed with diet slowly Physical Exam Vital Signs: Temp Pulse Resp BP Pulse Ox 98.1 F 82 16 99/49 L 97 01/02/17 07:51 01/02/17 07:51 01/02/17 07:51 01/02/17 07:51 01/02/17 08:00 Intake & Output 01/01/17 01/02/17 01/03/17 06:59 06:59 06:59 Intake Total 317 3922 Output Total 5770 4447 150 Balance -3186 -696 -150 Weight 77.8 kg General appearance: PRESENT: no acute distress, well-developed, well-nourished Exam: NAD, A&O x3 Lungs CTAB, no WRR Cards RRR no MRG Abdomen incision C/D/I, no signs of infection Ext 2+ pitting edema in bilateral upper ext, DP bilaterally intact and strong Results Laboratory Results: 01/02/17 05:05 01/02/17 05:05 01/01/17 01/01/17 01/01/17 08:46 20:45 20:45 WBC 7.8 Cancelled RBC 3.21 L Cancelled Hgb 10.1 L D Cancelled Hct 28.8 L Cancelled MCV 90 Cancelled MCH 31.5 Cancelled MCHC 35.2 Cancelled RDW 16.2 H Cancelled Plt Count 119 L Cancelled Seg Neutrophils % Not Reportable Cancelled Lymphocytes % Not Reportable Cancelled Monocytes % Not Reportable Cancelled Eosinophils % Not Reportable Cancelled Basophils % Not Reportable Cancelled Absolute Neutrophils Not Reportable Cancelled Absolute Lymphocytes Not Reportable Cancelled Absolute Monocytes Not Reportable Cancelled Absolute Eosinophils Not Reportable Cancelled Absolute Basophils Not Reportable Cancelled Sodium Potassium Chloride Carbon Dioxide Anion Gap BUN Creatinine Est GFR ( Amer) Est GFR (Non-Af Amer) Glucose Calcium Total Bilirubin AST ALT Alkaline Phosphatase Total Protein Albumin Blood Type O POSITIVE Antibody Screen NEGATIVE 01/02/17 01/02/17 05:05 05:05 WBC 5.6 RBC 2.92 L Hgb 9.2 L Hct 26.2 L MCV 90 MCH 31.7 MCHC 35.2 RDW 16.0 H Plt Count 107 L Seg Neutrophils % 86.4 H Lymphocytes % 8.5 L Monocytes % 3.4 Eosinophils % 1.4 Basophils % 0.3 Absolute Neutrophils 4.9 Absolute Lymphocytes 0.5 Absolute Monocytes 0.2 Absolute Eosinophils 0.1 Absolute Basophils 0.0 Sodium 137.8 Potassium 3.3 L Chloride 107 Carbon Dioxide 26 Anion Gap 5 BUN 10 Creatinine 0.72 Est GFR ( Amer) > 60 Est GFR (Non-Af Amer) > 60 Glucose 80 Calcium 8.1 L Total Bilirubin 1.2 AST 15 ALT 17 Alkaline Phosphatase 47 Total Protein 3.6 L Albumin 1.9 L Blood Type Antibody Screen Impressions: Abdomen/Pelvis CT 12/29/16 06:21 IMPRESSION: Pneumoperitoneum, most likely due to perforated gastric or duodenal ulcer. Chest X-Ray 01/01/17 06:00 IMPRESSION: No significant interval change. Assessment & Plan - Diagnosis (1) Perforation bowel Is this a current diagnosis for this admission?: Yes Plan: POD 4 s/p ex lap, VANESSA, repair of gastric perforation Pain control Ambulate/Bedside with PT SBFT tomorrow, good then remove NGT and attempt sips DVT/GI prophylaxis - Time Time Spent with patient: 15 minutes
--- NOTE | 2017-01-02 10:41 | PDOC PROGRESS REPORT ---
Subjective Progress Note for:: 01/02/17 Subjective:: Pt states that she is doing better. Pt states that she would like to have NGT removed. Pt's family present at bedside with question. Physical Exam Vital Signs: Temp Pulse Resp BP Pulse Ox 98.4 F 95 18 103/49 L 98 01/02/17 10:00 01/02/17 10:00 01/02/17 10:00 01/02/17 10:00 01/02/17 10:00 Intake & Output 01/01/17 01/02/17 01/03/17 06:59 06:59 06:59 Intake Total 3174 3922 Output Total 4850 4625 405 Balance -1676 -703 -405 Weight 77.8 kg General appearance: PRESENT: no acute distress, well-developed, well-nourished Head exam: PRESENT: atraumatic, normocephalic Eye exam: PRESENT: conjunctiva pink, EOMI. ABSENT: scleral icterus Ear exam: PRESENT: normal external ear exam Mouth exam: PRESENT: moist, tongue midline Neck exam: ABSENT: carotid bruit, JVD, lymphadenopathy, thyromegaly Respiratory exam: PRESENT: clear to auscultation jose luis. ABSENT: rales, rhonchi, wheezes Cardiovascular exam: PRESENT: RRR. ABSENT: diastolic murmur, rubs, systolic murmur Pulses: PRESENT: normal dorsalis pedis pul GI/Abdominal exam: PRESENT: normal bowel sounds, other - closed surgical wound.. ABSENT: distended, guarding, mass, organolmegaly, rebound, tenderness Rectal exam: PRESENT: deferred Extremities exam: PRESENT: full ROM. ABSENT: calf tenderness, clubbing, pedal edema Neurological exam: PRESENT: alert, awake, oriented to person, oriented to place , oriented to time, oriented to situation, CN II-XII grossly intact. ABSENT: motor sensory deficit Psychiatric exam: PRESENT: appropriate affect, normal mood. ABSENT: homicidal ideation, suicidal ideation Skin exam: PRESENT: dry, intact, warm. ABSENT: cyanosis, rash Results Laboratory Results: 01/02/17 05:05 01/02/17 05:05 01/01/17 01/01/17 01/01/17 08:46 20:45 20:45 WBC 7.8 Cancelled RBC 3.21 L Cancelled Hgb 10.1 L D Cancelled Hct 28.8 L Cancelled MCV 90 Cancelled MCH 31.5 Cancelled MCHC 35.2 Cancelled RDW 16.2 H Cancelled Plt Count 119 L Cancelled Seg Neutrophils % Not Reportable Cancelled Lymphocytes % Not Reportable Cancelled Monocytes % Not Reportable Cancelled Eosinophils % Not Reportable Cancelled Basophils % Not Reportable Cancelled Absolute Neutrophils Not Reportable Cancelled Absolute Lymphocytes Not Reportable Cancelled Absolute Monocytes Not Reportable Cancelled Absolute Eosinophils Not Reportable Cancelled Absolute Basophils Not Reportable Cancelled Sodium Potassium Chloride Carbon Dioxide Anion Gap BUN Creatinine Est GFR ( Amer) Est GFR (Non-Af Amer) Glucose Calcium Total Bilirubin AST ALT Alkaline Phosphatase Total Protein Albumin Blood Type O POSITIVE Antibody Screen NEGATIVE 01/02/17 01/02/17 05:05 05:05 WBC 5.6 RBC 2.92 L Hgb 9.2 L Hct 26.2 L MCV 90 MCH 31.7 MCHC 35.2 RDW 16.0 H Plt Count 107 L Seg Neutrophils % 86.4 H Lymphocytes % 8.5 L Monocytes % 3.4 Eosinophils % 1.4 Basophils % 0.3 Absolute Neutrophils 4.9 Absolute Lymphocytes 0.5 Absolute Monocytes 0.2 Absolute Eosinophils 0.1 Absolute Basophils 0.0 Sodium 137.8 Potassium 3.3 L Chloride 107 Carbon Dioxide 26 Anion Gap 5 BUN 10 Creatinine 0.72 Est GFR ( Amer) > 60 Est GFR (Non-Af Amer) > 60 Glucose 80 Calcium 8.1 L Total Bilirubin 1.2 AST 15 ALT 17 Alkaline Phosphatase 47 Total Protein 3.6 L Albumin 1.9 L Blood Type Antibody Screen Impressions: Abdomen/Pelvis CT 12/29/16 06:21 IMPRESSION: Pneumoperitoneum, most likely due to perforated gastric or duodenal ulcer. Chest X-Ray 01/01/17 06:00 IMPRESSION: No significant interval change. Assessment & Plan - Diagnosis (1) Septic shock Is this a current diagnosis for this admission?: Yes Plan: Secondary to Perforated Bowel: Imipenem/Cilastatin. Will discontinue Clindamycin. (2) Anemia Is this a current diagnosis for this admission?: Yes Plan: Secondary to Acute Blood Loss S/P 2 units of PRBC: Will continue to monitor. Hbg stable. (3) Abdominal pain Qualifiers: Abdominal location: generalized Qualified Code(s): R10.84 - Generalized abdominal pain Is this a current diagnosis for this admission?: Yes Plan: Secondary of Perforated Bowel: Will continue antibiotics. (4) Perforation bowel Is this a current diagnosis for this admission?: Yes Plan: S/P surgery: Will continue antibiotics. (5) Respiratory failure Qualifiers: Chronicity: acute Is this a current diagnosis for this admission?: Yes Plan: Resolved. (6) Hypokalemia Is this a current diagnosis for this admission?: Yes Plan: Will give potassium replacement and check magnesium. (7) Hypotension Qualifiers: Hypotension type: unspecified hypotension type Qualified Code(s): I95.9 - Hypotension, unspecified Is this a current diagnosis for this admission?: Yes Plan: Resolving with IVFs (8) DVT prophylaxis Is this a current diagnosis for this admission?: Yes Plan: Lovenox - Time Time Spent with patient: 15-24 minutes
--- NOTE | 2017-01-02 11:13 | PDOC PROGRESS REPORT ---
Subjective Progress Note for:: 01/02/17 Subjective:: Awake lethargic confused Physical Exam Vital Signs: Temp Pulse Resp BP Pulse Ox 98.1 F 82 16 99/49 L 99 01/02/17 07:51 01/02/17 07:51 01/02/17 07:51 01/02/17 07:51 01/02/17 07:51 Intake & Output 01/01/17 01/02/17 01/03/17 06:59 06:59 06:59 Intake Total 3173 3922 Output Total 4763 4697 150 Balance -6696 -703 -150 Weight 77.8 kg General appearance: PRESENT: no acute distress, cooperative, disheveled, obese, well-developed Head exam: PRESENT: atraumatic, normocephalic Eye exam: PRESENT: conjunctiva pale, EOMI Mouth exam: PRESENT: dry mucosa, neck supple, tongue midline Neck exam: ABSENT: carotid bruit, JVD, lymphadenopathy, thyromegaly Respiratory exam: PRESENT: decreased breath sounds, prolonged expiratory phas, rales, rhonchi, symmetrical, unlabored. ABSENT: retraction, stridor, tachypnea , wheezes Cardiovascular exam: PRESENT: RRR, +S1, +S2 Pulses: PRESENT: normal radial pulses GI/Abdominal exam: PRESENT: other - Status post surgery Rectal exam: PRESENT: deferred Gentrourinary exam: PRESENT: indwelling catheter Extremities exam: PRESENT: +1 edema Neurological exam: PRESENT: awake. ABSENT: alert Psychiatric exam: PRESENT: flat affect Skin exam: PRESENT: dry, warm Results Laboratory Results: 01/02/17 05:05 01/02/17 05:05 01/01/17 01/01/17 01/01/17 05:45 08:46 20:45 WBC 7.9 7.8 RBC 2.44 L 3.21 L Hgb 7.8 L 10.1 L D Hct 22.7 L 28.8 L MCV 93 90 MCH 31.8 31.5 MCHC 34.2 35.2 RDW 14.4 H 16.2 H Plt Count 128 L 119 L Seg Neutrophils % 85.4 H Not Reportable Lymphocytes % 11.4 L Not Reportable Monocytes % 2.1 L Not Reportable Eosinophils % 0.9 Not Reportable Basophils % 0.2 Not Reportable Absolute Neutrophils 6.7 Not Reportable Absolute Lymphocytes 0.9 Not Reportable Absolute Monocytes 0.2 Not Reportable Absolute Eosinophils 0.1 Not Reportable Absolute Basophils 0.0 Not Reportable Sodium Potassium Chloride Carbon Dioxide Anion Gap BUN Creatinine Est GFR ( Amer) Est GFR (Non-Af Amer) Glucose Calcium Total Bilirubin AST ALT Alkaline Phosphatase Total Protein Albumin Blood Type O POSITIVE Antibody Screen NEGATIVE 01/01/17 01/02/17 01/02/17 20:45 05:05 05:05 WBC Cancelled 5.6 RBC Cancelled 2.92 L Hgb Cancelled 9.2 L Hct Cancelled 26.2 L MCV Cancelled 90 MCH Cancelled 31.7 MCHC Cancelled 35.2 RDW Cancelled 16.0 H Plt Count Cancelled 107 L Seg Neutrophils % Cancelled 86.4 H Lymphocytes % Cancelled 8.5 L Monocytes % Cancelled 3.4 Eosinophils % Cancelled 1.4 Basophils % Cancelled 0.3 Absolute Neutrophils Cancelled 4.9 Absolute Lymphocytes Cancelled 0.5 Absolute Monocytes Cancelled 0.2 Absolute Eosinophils Cancelled 0.1 Absolute Basophils Cancelled 0.0 Sodium 137.8 Potassium 3.3 L Chloride 107 Carbon Dioxide 26 Anion Gap 5 BUN 10 Creatinine 0.72 Est GFR ( Amer) > 60 Est GFR (Non-Af Amer) > 60 Glucose 80 Calcium 8.1 L Total Bilirubin 1.2 AST 15 ALT 17 Alkaline Phosphatase 47 Total Protein 3.6 L Albumin 1.9 L Blood Type Antibody Screen Impressions: Abdomen/Pelvis CT 12/29/16 06:21 IMPRESSION: Pneumoperitoneum, most likely due to perforated gastric or duodenal ulcer. Chest X-Ray 01/01/17 06:00 IMPRESSION: No significant interval change. Assessment & Plan - Diagnosis (1) Perforation bowel Is this a current diagnosis for this admission?: Yes (2) Septic shock Is this a current diagnosis for this admission?: Yes (3) Respiratory failure Qualifiers: Chronicity: acute Is this a current diagnosis for this admission?: Yes Plan: 24 hours status post extubation doing quite well - Time Critical Time spent with patient: 15-24 minutes
[2017-01-02] MEDS: POTASSI CL 20 MEQ/50 ML RIDER 20 MEQ/50 ML RTUPB IV SCH ×2 (12:49→14:22)
[2017-01-02] MEDS ORDERED: DEXTROSE 50%-WATER 25 GM/50 ML DISP.SYRIN IV ONE (13:00)
[2017-01-02] MEDS: DEXTROSE 5%-LACTATED RINGERS 1,000 ML IV PRN ×2 (14:15→23:24)
[2017-01-03] MEDS: MORPHINE SULFATE 10 MG/ML INJ IV PRN ×4 (00:03→17:48)
[2017-01-03] MEDS: DEXTROSE 5%-LACTATED RINGERS 1,000 ML IV PRN (05:07)
[2017-01-03] MEDS: IMIPENEM/CILASTATIN SODIUM 500 MG in DEXTROSE 5%-WATER 100 ML IV SCH ×3 (05:57→17:49)
[2017-01-03 06:01] LABS: ARTERIAL BLOOD BASE EXCESS 6.7 mmol/L; ARTERIAL BLOOD O2 SATURATION 95.6 % (94-98)
[2017-01-03 06:02] LABS: ABSOLUTE EOSINOPHILS # (AUTO) 0.1 10^3/uL (0.0-0.6); ABSOLUTE LYMPHOCYTES (AUTO) 0.5 10^3/uL (0.5-4.7); ABSOLUTE MONOCYTES (AUTO) 0.3 10^3/uL (0.1-1.4); ABSOLUTE NEUT (AUTO) 5.8 10^3/uL (1.7-8.2); BASOPHILS % (AUTO) 0.3 % (0-2); EOSINOPHILS % (AUTO) 1.9 % (0-6); HEMATOCRIT 28.1 % (36.0-47.0); HEMOGLOBIN 9.9 g/dL (12.0-15.5); HGB HCT DIFFERENCE 1.6; LYMPHOCYTES % (AUTO) 7.6 % (13-45); MEAN CORPUSCULAR HEMOGLOBIN 31.5 pg (27.0-33.4); MEAN CORPUSCULAR HGB CONC 35.4 g/dL (32.0-36.0); MEAN CORPUSCULAR VOLUME 89 fl (80-97); MONOCYTES % (AUTO) 3.9 % (3-13); RED BLOOD COUNT 3.15 10^6/uL (3.72-5.28); RED CELL DISTRIBUTION WIDTH 15.3 % (11.5-14.0); SEGMENTED NEUTROPHILS % (AUTO) 86.3 % (42-78); WHITE BLOOD COUNT 6.7 10^3/uL (4.0-10.5)
[2017-01-03 06:18] LABS: ALANINE AMINOTRANSFERASE 17 U/L (9-52); ALKALINE PHOSPHATASE 48 U/L (38-126); ASPARTATE AMINO TRANSFERASE 14 U/L (14-36); BILIRUBIN,DIRECT 0.3 mg/dL (0.0-0.4); BILIRUBIN,TOTAL 0.4 mg/dL (0.2-1.3); BLOOD UREA NITROGEN 7 mg/dL (7-20); CALCIUM 8.2 mg/dL (8.4-10.2); CHLORIDE 102 mmol/L (98-107); GLUCOSE 132 mg/dL (75-110); MAGNESIUM 1.7 mg/dL (1.6-2.3); PHOSPHORUS 2.7 mg/dL (2.5-4.5); POTASSIUM 3.3 mmol/L (3.6-5.0); TOTAL PROTEIN 3.8 g/dL (6.3-8.2)
[2017-01-03 06:31] LABS: CARBON DIOXIDE 31 mmol/L (22-30); SODIUM 136.3 mmol/L (137-145)
[2017-01-03 06:34] LABS: ANION GAP 3 (5-19)
--- NOTE | 2017-01-03 07:48 | RADIOLOGY REPORT (SQ) ---
EXAM DESCRIPTION: CHEST SINGLE VIEW COMPLETED DATE/TIME: 01/03/2017 5:54 am REASON FOR STUDY: resp fail COMPARISON: 01/01/2017. EXAM PARAMETERS: NUMBER OF VIEWS: One view. TECHNIQUE: Single frontal radiographic view of the chest acquired. RADIATION DOSE: NA LIMITATIONS: None. FINDINGS: LUNGS AND PLEURA: Moderate lung volumes. Mild interstitial markings. Moderate left lower lobar opacity -effusion. MEDIASTINUM AND HILAR STRUCTURES: No masses. Contour normal. HEART AND VASCULAR STRUCTURES: Heart normal in size. Normal vasculature. BONES: No acute findings. HARDWARE: Adequate appearing NG tube obscured distally. Right subclavian central line tip at the rig ht atrium ; consider 6.5 cm retraction. OTHER: No other significant finding. IMPRESSION: No significant interval change. TECHNICAL DOCUMENTATION: JOB ID: [id number]
[2017-01-03] MEDS: POTASSI CL 20 MEQ/50 ML RIDER 20 MEQ/50 ML RTUPB IV SCH ×4 (08:28→17:47)
[2017-01-03] MEDS ORDERED: DEXTROSE 5%-LACTATED RINGERS 1,000 ML IV PRN (09:30)
--- NOTE | 2017-01-03 09:39 | PDOC PROGRESS REPORT ---
Subjective Progress Note for:: 01/03/17 Subjective:: Pt states that she is having back pain. Pt states that she would like to get out of bed. Nursings states that pt has been requesting for pain medication frequently for back pain. Physical Exam Vital Signs: Temp Pulse Resp BP Pulse Ox 99.3 F 84 16 125/53 L 96 01/02/17 16:00 01/02/17 21:51 01/03/17 06:30 01/03/17 06:04 01/03/17 06:30 Intake & Output 01/02/17 01/03/17 01/04/17 06:59 06:59 06:59 Intake Total 3922 3380 Output Total 4625 3225 Balance -703 155 Weight 80.8 kg General appearance: PRESENT: no acute distress, well-developed, well-nourished Head exam: PRESENT: atraumatic, normocephalic Eye exam: PRESENT: conjunctiva pink, EOMI. ABSENT: scleral icterus Ear exam: PRESENT: normal external ear exam Mouth exam: PRESENT: moist, tongue midline Neck exam: ABSENT: carotid bruit, JVD, lymphadenopathy, thyromegaly Respiratory exam: PRESENT: other - Good breath sounds upper lobes, scant crackles heard at the bases. Cardiovascular exam: PRESENT: RRR. ABSENT: diastolic murmur, rubs, systolic murmur Pulses: PRESENT: normal dorsalis pedis pul GI/Abdominal exam: PRESENT: other - + hypoactive bowel sounds, closed midline incision with dressing in place. Rectal exam: PRESENT: deferred Extremities exam: PRESENT: full ROM. ABSENT: calf tenderness, clubbing, pedal edema Neurological exam: PRESENT: alert, awake, oriented to person, oriented to place , oriented to time, oriented to situation, CN II-XII grossly intact. ABSENT: motor sensory deficit Psychiatric exam: PRESENT: appropriate affect, normal mood. ABSENT: homicidal ideation, suicidal ideation Skin exam: PRESENT: dry, intact, warm. ABSENT: cyanosis, rash Results Laboratory Results: 01/03/17 05:50 01/03/17 05:50 01/03/17 01/03/17 01/03/17 05:50 05:50 05:50 WBC 6.7 RBC 3.15 L Hgb 9.9 L Hct 28.1 L MCV 89 MCH 31.5 MCHC 35.4 RDW 15.3 H Plt Count 116 L Seg Neutrophils % 86.3 H Lymphocytes % 7.6 L Monocytes % 3.9 Eosinophils % 1.9 Basophils % 0.3 Absolute Neutrophils 5.8 Absolute Lymphocytes 0.5 Absolute Monocytes 0.3 Absolute Eosinophils 0.1 Absolute Basophils 0.0 Carbonic Acid 1.42 H HCO3/H2CO3 Ratio 22:1 ABG pH 7.45 ABG pCO2 47.2 H ABG pO2 76.0 L ABG HCO3 31.7 H ABG O2 Saturation 95.6 ABG Base Excess 6.7 FiO2 2L Sodium 136.3 L Potassium 3.3 L Chloride 102 Carbon Dioxide 31 H Anion Gap 3 L BUN 7 Creatinine 0.60 Est GFR ( Amer) > 60 Est GFR (Non-Af Amer) > 60 Glucose 132 H Calcium 8.2 L Phosphorus 2.7 Magnesium 1.7 Total Bilirubin 0.4 AST 14 ALT 17 Alkaline Phosphatase 48 Total Protein 3.8 L Albumin 2.0 L Impressions: Abdomen/Pelvis CT 12/29/16 06:21 IMPRESSION: Pneumoperitoneum, most likely due to perforated gastric or duodenal ulcer. Chest X-Ray 01/03/17 06:00 IMPRESSION: No significant interval change. Assessment & Plan - Diagnosis (1) Septic shock Is this a current diagnosis for this admission?: Yes Plan: Secondary to Perforated Bowel: Imipenem/Cilastatin. (2) Anemia Is this a current diagnosis for this admission?: Yes Plan: Secondary to Acute Blood Loss S/P 2 units of PRBC: Will continue to monitor. Hbg stable. (3) Abdominal pain Qualifiers: Abdominal location: generalized Qualified Code(s): R10.84 - Generalized abdominal pain Is this a current diagnosis for this admission?: Yes Plan: Secondary of Perforated Bowel: Will continue antibiotics. (4) Perforation bowel Is this a current diagnosis for this admission?: Yes Plan: S/P surgery: Will continue antibiotics. (5) Respiratory failure Qualifiers: Chronicity: acute Is this a current diagnosis for this admission?: Yes Plan: Resolved. (6) Hypokalemia Is this a current diagnosis for this admission?: Yes Plan: Will give Potassium replacment. (7) Hypotension Qualifiers: Hypotension type: unspecified hypotension type Qualified Code(s): I95.9 - Hypotension, unspecified Is this a current diagnosis for this admission?: Yes Plan: Resolved. Will decrease IVFs (8) Volume overload Qualifiers: Hypervolemia type: transfusion-associated Qualified Code(s): E87.71 - Transfusion associated circulatory overload Is this a current diagnosis for this admission?: Yes Plan: Will give Lasix 40 mg IV X 1. Will have Benitez removed today. (9) Pneumonia Is this a current diagnosis for this admission?: Yes Plan: Ruled Out: Pt is volume overload. (10) Back pain Qualifiers: Chronicity: chronic Is this a current diagnosis for this admission?: Yes Plan: Pt's request for pain medication has been more associated with her back pain. Will have pt OOB QID and PT/OT work with patient. (11) Hypomagnesemia Is this a current diagnosis for this admission?: Yes Plan: Will give Magnesium replacement. (12) DVT prophylaxis Is this a current diagnosis for this admission?: Yes Plan: Lovenox - Time Time Spent with patient: 25-34 minutes
[2017-01-03] MEDS ORDERED: FUROSEMIDE INJ/PF 40 MG/4 ML SDV IV ONE (10:30)
[2017-01-03] MEDS ORDERED: PANTOPRAZOLE SODIUM 40 MG VIAL IV ONE (10:30)
--- NOTE | 2017-01-03 10:58 | RADIOLOGY REPORT (SQ) ---
EXAM DESCRIPTION: SMALL BOWEL SERIES COMPLETED DATE/TIME: 01/03/2017 10:37 am REASON FOR STUDY: assess SB function and intact ulcer repair COMPARISON: CT abdomen pelvis 12/29/2016 Multiple chest films since 12/29/2016, most recently 01/03/2017 FLUOROSCOPY TIME: 30 seconds 20 images saved to PACS. LIMITATIONS: None. PROCEDURE: Initial cheese pancake roller image of abdomen acquired, followed by administration of 240 mL Gastrografi n into the pre-existing nasogastric tube. Serial radiographic images acquired. Fluoroscopic images recorded of the terminal ileum and other indicated areas. All images stored on PACS. FINDINGS: AMBULETTE DRIVER KUB: Non-obstructive bowel pattern. No abnormal calcifications. Soft tissue planes normal. Midline abdominal alma delia are present. Nasogastric tube tip and side port in the stomach. Left basilar consolidation likely atelectasis. STOMACH: Moderate gastroesophageal reflux. Normal distention without abnormality. Prompt gastric em ptying. No extravasation along the gastric antrum or pylorus region. DUODENUM: Normal mucosal pattern with adequate distention. No displacement or obstruction. JEJUNUM: Normal mucosal pattern. No dilatation, segmentation, strictures or masses. ILEUM: Normal mucosal pattern. No dilatation, segmentation, strictures or masses. TERMINAL ILEUM AND ILEO-CECAL VALVE: Normal mucosal pattern without "cobble-stoning" or stricture. N ormal compression. PROXIMAL COLON: Incompletely imaged. No abnormality. OTHER: No other significant finding. IMPRESSION: NORMAL SMALL BOWEL EXAM. NO EXTRAVASATION OF CONTRAST FROM THE STOMACH. PROMPT GASTRIC EMPTYING. LEFT BASILAR CONSOLIDATION ATELECTASIS VERSUS PNEUMONIA. COMMENT: Quality ID [id number]: Final reports for procedures using fluoroscopy that document radiation exp osure indices, or exposure time and number of fluorographic images (if radiation exposure indices are not available) TECHNICAL DOCUMENTATION: JOB ID: [id number] [employer]- All Rights Reserved
[2017-01-03] MEDS: MAGNESIUM SULFATE/D5W 1 GM/100 ML RTUPB IV SCH ×2 (11:24→12:15)
[2017-01-03] MEDS: ENOXAPARIN SODIUM INJ 40 MG/0.4 ML DISP.SYRIN SUBCUT SCH (11:34)
--- NOTE | 2017-01-03 11:39 | PDOC PROGRESS REPORT ---
Subjective Progress Note for:: 01/03/17 Subjective:: Awake and confused Physical Exam Vital Signs: Temp Pulse Resp BP Pulse Ox 99.3 F 84 16 125/53 L 96 01/02/17 16:00 01/02/17 21:51 01/03/17 06:30 01/03/17 06:04 01/03/17 06:30 Intake & Output 01/02/17 01/03/17 01/04/17 06:59 06:59 06:59 Intake Total 3922 3380 Output Total 4609 3225 Balance -703 155 Weight 80.8 kg General appearance: PRESENT: no acute distress, cooperative, disheveled, obese Head exam: PRESENT: atraumatic, normocephalic Eye exam: PRESENT: conjunctiva pale, EOMI Mouth exam: PRESENT: dry mucosa, neck supple, tongue midline Neck exam: ABSENT: carotid bruit, JVD, lymphadenopathy, thyromegaly Respiratory exam: PRESENT: decreased breath sounds, prolonged expiratory phas, rhonchi, symmetrical, unlabored, wheezes. ABSENT: retraction, stridor, tachypnea Cardiovascular exam: PRESENT: RRR, +S1, +S2 Pulses: PRESENT: normal radial pulses GI/Abdominal exam: PRESENT: normal bowel sounds, soft. ABSENT: distended, guarding, mass, organolmegaly, rebound, tenderness Rectal exam: PRESENT: deferred Gentrourinary exam: PRESENT: indwelling catheter Extremities exam: PRESENT: +1 edema Neurological exam: PRESENT: awake. ABSENT: oriented to time, oriented to situation Psychiatric exam: PRESENT: flat affect Skin exam: PRESENT: dry, warm Results Laboratory Results: 01/03/17 05:50 01/03/17 05:50 01/03/17 01/03/17 01/03/17 05:50 05:50 05:50 WBC 6.7 RBC 3.15 L Hgb 9.9 L Hct 28.1 L MCV 89 MCH 31.5 MCHC 35.4 RDW 15.3 H Plt Count 116 L Seg Neutrophils % 86.3 H Lymphocytes % 7.6 L Monocytes % 3.9 Eosinophils % 1.9 Basophils % 0.3 Absolute Neutrophils 5.8 Absolute Lymphocytes 0.5 Absolute Monocytes 0.3 Absolute Eosinophils 0.1 Absolute Basophils 0.0 Carbonic Acid 1.42 H HCO3/H2CO3 Ratio 22:1 ABG pH 7.45 ABG pCO2 47.2 H ABG pO2 76.0 L ABG HCO3 31.7 H ABG O2 Saturation 95.6 ABG Base Excess 6.7 FiO2 2L Sodium 136.3 L Potassium 3.3 L Chloride 102 Carbon Dioxide 31 H Anion Gap 3 L BUN 7 Creatinine 0.60 Est GFR ( Amer) > 60 Est GFR (Non-Af Amer) > 60 Glucose 132 H Calcium 8.2 L Phosphorus 2.7 Magnesium 1.7 Total Bilirubin 0.4 AST 14 ALT 17 Alkaline Phosphatase 48 Total Protein 3.8 L Albumin 2.0 L Impressions: Abdomen/Pelvis CT 12/29/16 06:21 IMPRESSION: Pneumoperitoneum, most likely due to perforated gastric or duodenal ulcer. Chest X-Ray 01/03/17 06:00 IMPRESSION: No significant interval change. Assessment & Plan - Diagnosis (1) Perforation bowel Is this a current diagnosis for this admission?: Yes (2) Septic shock Is this a current diagnosis for this admission?: Yes Plan: Labs- All tests 24 hr 01/03/17 01/03/17 05:50 05:50 WBC 6.7 Plt Count 116 L Seg Neutrophils % 86.3 H Lymphocytes % 7.6 L Monocytes % 3.9 Eosinophils % 1.9 Basophils % 0.3 ABG pH 7.45 ABG pCO2 47.2 H ABG pO2 76.0 L FiO2 2L (3) Respiratory failure Qualifiers: Chronicity: acute Is this a current diagnosis for this admission?: Yes Plan: Labs- All tests 24 hr 01/03/17 01/03/17 05:50 05:50 WBC 6.7 Plt Count 116 L Seg Neutrophils % 86.3 H Lymphocytes % 7.6 L Monocytes % 3.9 Eosinophils % 1.9 Basophils % 0.3 ABG pH 7.45 ABG pCO2 47.2 H ABG pO2 76.0 L FiO2 2L - Time Critical Time spent with patient: 25-34 minutes
--- NOTE | 2017-01-03 16:27 | PDOC PROGRESS REPORT ---
Subjective Progress Note for:: 01/03/17 Subjective:: Doing well with (+)flattus and BM SBFT good NGT removed starting cliq diet Physical Exam Vital Signs: Temp Pulse Resp BP Pulse Ox 98.3 F 86 18 123/60 98 01/03/17 12:50 01/03/17 12:00 01/03/17 12:15 01/03/17 14:33 01/03/17 14:33 Intake & Output 01/02/17 01/03/17 01/04/17 06:59 06:59 06:59 Intake Total 3922 3380 1050 Output Total 4643 3225 2575 Balance -703 155 -1525 Weight 80.8 kg General appearance: PRESENT: no acute distress Head exam: PRESENT: atraumatic, normocephalic Mouth exam: PRESENT: moist, neck supple Neck exam: ABSENT: lymphadenopathy, tenderness, thyromegaly, tracheal deviation Pulses: PRESENT: normal dorsalis pedis pul Vascular exam: PRESENT: normal capillary refill GI/Abdominal exam: PRESENT: soft, tenderness - appropriate, other - Incisions C/ D/I. ABSENT: distended, firm Extremities exam: PRESENT: full ROM. ABSENT: calf tenderness, clubbing, pedal edema Neurological exam: PRESENT: alert, awake, oriented to person, oriented to place , oriented to time, oriented to situation, CN II-XII grossly intact. ABSENT: motor sensory deficit Results Laboratory Results: 01/03/17 05:50 01/03/17 05:50 01/03/17 01/03/17 01/03/17 05:50 05:50 05:50 WBC 6.7 RBC 3.15 L Hgb 9.9 L Hct 28.1 L MCV 89 MCH 31.5 MCHC 35.4 RDW 15.3 H Plt Count 116 L Seg Neutrophils % 86.3 H Lymphocytes % 7.6 L Monocytes % 3.9 Eosinophils % 1.9 Basophils % 0.3 Absolute Neutrophils 5.8 Absolute Lymphocytes 0.5 Absolute Monocytes 0.3 Absolute Eosinophils 0.1 Absolute Basophils 0.0 Carbonic Acid 1.42 H HCO3/H2CO3 Ratio 22:1 ABG pH 7.45 ABG pCO2 47.2 H ABG pO2 76.0 L ABG HCO3 31.7 H ABG O2 Saturation 95.6 ABG Base Excess 6.7 FiO2 2L Sodium 136.3 L Potassium 3.3 L Chloride 102 Carbon Dioxide 31 H Anion Gap 3 L BUN 7 Creatinine 0.60 Est GFR ( Amer) > 60 Est GFR (Non-Af Amer) > 60 Glucose 132 H Calcium 8.2 L Phosphorus 2.7 Magnesium 1.7 Total Bilirubin 0.4 AST 14 ALT 17 Alkaline Phosphatase 48 Total Protein 3.8 L Albumin 2.0 L Impressions: Abdomen/Pelvis CT 12/29/16 06:21 IMPRESSION: Pneumoperitoneum, most likely due to perforated gastric or duodenal ulcer. Small Bowel X-Ray 01/03/17 00:00 IMPRESSION: NORMAL SMALL BOWEL EXAM. NO EXTRAVASATION OF CONTRAST FROM THE STOMACH. PROMPT GASTRIC EMPTYING. LEFT BASILAR CONSOLIDATION ATELECTASIS VERSUS PNEUMONIA. Chest X-Ray 01/03/17 06:00 IMPRESSION: No significant interval change. Assessment & Plan - Diagnosis (1) Perforation bowel Is this a current diagnosis for this admission?: Yes Plan: POD 5 s/p ex lap, eddie, gramm patch repair of gastric ulcer NGT out Cliq diet, do not advance today pain control Pulmonary toilet - Time Time Spent with patient: Less than 15 minutes
[2017-01-03] MEDS: PANTOPRAZOLE SODIUM 40 MG VIAL IV SCH (21:44)
[2017-01-04] MEDS: IMIPENEM/CILASTATIN SODIUM 500 MG in DEXTROSE 5%-WATER 100 ML IV SCH ×5 (00:34→23:22)
[2017-01-04] MEDS: MORPHINE SULFATE 10 MG/ML INJ IV PRN ×5 (00:35→23:22)
[2017-01-04 06:20] LABS: ARTERIAL BLOOD O2 SATURATION 95.8 % (94-98)
[2017-01-04 06:20] LABS: ABSOLUTE EOSINOPHILS # (AUTO) 0.1 10^3/uL (0.0-0.6); ABSOLUTE LYMPHOCYTES (AUTO) 0.6 10^3/uL (0.5-4.7); ABSOLUTE MONOCYTES (AUTO) 0.2 10^3/uL (0.1-1.4); ABSOLUTE NEUT (AUTO) 5.8 10^3/uL (1.7-8.2); BASOPHILS % (AUTO) 0.3 % (0-2); HEMATOCRIT 30.6 % (36.0-47.0); HEMOGLOBIN 10.6 g/dL (12.0-15.5); HGB HCT DIFFERENCE 1.2; LYMPHOCYTES % (AUTO) 9.4 % (13-45); MEAN CORPUSCULAR HEMOGLOBIN 31.3 pg (27.0-33.4); MEAN CORPUSCULAR HGB CONC 34.8 g/dL (32.0-36.0); MEAN CORPUSCULAR VOLUME 90 fl (80-97); MONOCYTES % (AUTO) 3.6 % (3-13); RED BLOOD COUNT 3.39 10^6/uL (3.72-5.28); RED CELL DISTRIBUTION WIDTH 15.1 % (11.5-14.0); SEGMENTED NEUTROPHILS % (AUTO) 84.7 % (42-78); WHITE BLOOD COUNT 6.8 10^3/uL (4.0-10.5)
[2017-01-04 06:32] LABS: ANION GAP 5 (5-19); BLOOD UREA NITROGEN 7 mg/dL (7-20); CALCIUM 8.5 mg/dL (8.4-10.2); CARBON DIOXIDE 33 mmol/L (22-30); CHLORIDE 99 mmol/L (98-107); CREATININE RESULT 0.66 mg/dL (0.52-1.25); GLUCOSE 104 mg/dL (75-110); MAGNESIUM 1.6 mg/dL (1.6-2.3); POTASSIUM 3.9 mmol/L (3.6-5.0); SODIUM 136.5 mmol/L (137-145)
--- NOTE | 2017-01-04 09:10 | RADIOLOGY REPORT (SQ) ---
EXAM DESCRIPTION: CHEST SINGLE VIEW COMPLETED DATE/TIME: 01/04/2017 9:01 am REASON FOR STUDY: pna COMPARISON: 01/03/2017 EXAM PARAMETERS: NUMBER OF VIEWS: One view. TECHNIQUE: Single frontal radiographic view of the chest acquired. RADIATION DOSE: NA LIMITATIONS: None. FINDINGS: LUNGS AND PLEURA: There is residual infiltrate in the right base. Lung carlos otherwise c lear. Central line remains in place. The NG tube is been removed. MEDIASTINUM AND HILAR STRUCTURES: No masses. Contour normal. HEART AND VASCULAR STRUCTURES: Heart normal in size. Normal vasculature. BONES: No acute findings. HARDWARE: None in the chest. OTHER: No other significant finding. IMPRESSION: Persistent right basilar airspace disease most consistent with pneumonia. NG tube is be en removed. Central line remains in place. TECHNICAL DOCUMENTATION: JOB ID: [id number]
--- NOTE | 2017-01-04 09:20 | PDOC PROGRESS REPORT ---
Subjective Progress Note for:: 01/04/17 Subjective:: Feels well. Tolerating liquid diet well. Physical Exam Vital Signs: Temp Pulse Resp BP Pulse Ox 99.5 F 96 16 117/53 L 95 01/03/17 21:00 01/03/17 21:00 01/03/17 21:00 01/03/17 21:00 01/03/17 21:00 Intake & Output 01/03/17 01/04/17 01/05/17 06:59 06:59 06:59 Intake Total 3380 5884 Output Total 3221 4708 Balance 155 -2064 Weight 80.8 kg 80.8 kg General appearance: PRESENT: no acute distress, cooperative Respiratory exam: PRESENT: clear to auscultation jose luis Cardiovascular exam: PRESENT: RRR GI/Abdominal exam: PRESENT: other - Soft, nondistended, nontender to palpation. Wound clean dry and intact. Extremities exam: PRESENT: other - No swelling and no tenderness Results Laboratory Results: 01/04/17 05:15 01/04/17 05:15 01/04/17 01/04/17 01/04/17 05:15 05:15 06:00 WBC 6.8 RBC 3.39 L Hgb 10.6 L Hct 30.6 L MCV 90 MCH 31.3 MCHC 34.8 RDW 15.1 H Plt Count 135 L Seg Neutrophils % 84.7 H Lymphocytes % 9.4 L Monocytes % 3.6 Eosinophils % 2.0 Basophils % 0.3 Absolute Neutrophils 5.8 Absolute Lymphocytes 0.6 Absolute Monocytes 0.2 Absolute Eosinophils 0.1 Absolute Basophils 0.0 Carbonic Acid 1.42 H HCO3/H2CO3 Ratio 25:1 ABG pH 7.49 H ABG pCO2 47.3 H ABG pO2 74.3 L ABG HCO3 35.6 H ABG O2 Saturation 95.8 ABG Base Excess 11.0 FiO2 1L Sodium 136.5 L Potassium 3.9 Chloride 99 Carbon Dioxide 33 H Anion Gap 5 BUN 7 Creatinine 0.66 Est GFR ( Amer) > 60 Est GFR (Non-Af Amer) > 60 Glucose 104 Calcium 8.5 Magnesium 1.6 Impressions: Abdomen/Pelvis CT 12/29/16 06:21 IMPRESSION: Pneumoperitoneum, most likely due to perforated gastric or duodenal ulcer. Small Bowel X-Ray 01/03/17 00:00 IMPRESSION: NORMAL SMALL BOWEL EXAM. NO EXTRAVASATION OF CONTRAST FROM THE STOMACH. PROMPT GASTRIC EMPTYING. LEFT BASILAR CONSOLIDATION ATELECTASIS VERSUS PNEUMONIA. Chest X-Ray 01/04/17 06:00 IMPRESSION: Persistent right basilar airspace disease most consistent with pneumonia. NG tube is been removed. Central line remains in place. Assessment & Plan - Diagnosis (1) Perforated gastric ulcer Qualifiers: Gastric ulcer chronicity: acute Qualified Code(s): K25.1 - Acute gastric ulcer with perforation Is this a current diagnosis for this admission?: Yes Plan: Status post omental patch. Patient looks good. Tolerating diet well. Will start her on a soft diet. DC Benitez. Ambulate. We will seek placement.
[2017-01-04] MEDS: ENOXAPARIN SODIUM INJ 40 MG/0.4 ML DISP.SYRIN SUBCUT SCH (11:57)
[2017-01-04] MEDS: PANTOPRAZOLE SODIUM 40 MG VIAL IV SCH ×2 (11:59→21:21)
--- NOTE | 2017-01-04 12:53 | PDOC PROGRESS REPORT ---
Subjective Progress Note for:: 01/04/17 Subjective:: remains awake and confused Physical Exam Vital Signs: Temp Pulse Resp BP Pulse Ox 98.3 F 95 16 124/59 L 92 01/04/17 09:00 01/04/17 09:00 01/04/17 09:00 01/04/17 09:00 01/04/17 09:00 Intake & Output 01/03/17 01/04/17 01/05/17 06:59 06:59 06:59 Intake Total 3385 6483 Output Total 3229 4779 Balance 155 -2064 Weight 80.8 kg 80.8 kg General appearance: PRESENT: no acute distress, cooperative, disheveled, well- developed Head exam: PRESENT: atraumatic, normocephalic Eye exam: PRESENT: conjunctiva pale, EOMI Mouth exam: PRESENT: dry mucosa, neck supple, tongue midline Neck exam: ABSENT: carotid bruit, JVD, lymphadenopathy, thyromegaly Respiratory exam: PRESENT: decreased breath sounds, prolonged expiratory phas, rhonchi, symmetrical, unlabored. ABSENT: crackles, rales, retraction, stridor, tachypnea, wheezes Cardiovascular exam: PRESENT: RRR, +S1, +S2 Pulses: PRESENT: normal radial pulses GI/Abdominal exam: PRESENT: normal bowel sounds, soft. ABSENT: distended, guarding, mass, organolmegaly, rebound, tenderness Rectal exam: PRESENT: deferred Extremities exam: PRESENT: +1 edema Neurological exam: PRESENT: awake. ABSENT: alert Skin exam: PRESENT: dry, warm Results Laboratory Results: 01/04/17 05:15 01/04/17 05:15 01/04/17 01/04/17 01/04/17 05:15 05:15 06:00 WBC 6.8 RBC 3.39 L Hgb 10.6 L Hct 30.6 L MCV 90 MCH 31.3 MCHC 34.8 RDW 15.1 H Plt Count 135 L Seg Neutrophils % 84.7 H Lymphocytes % 9.4 L Monocytes % 3.6 Eosinophils % 2.0 Basophils % 0.3 Absolute Neutrophils 5.8 Absolute Lymphocytes 0.6 Absolute Monocytes 0.2 Absolute Eosinophils 0.1 Absolute Basophils 0.0 Carbonic Acid 1.42 H HCO3/H2CO3 Ratio 25:1 ABG pH 7.49 H ABG pCO2 47.3 H ABG pO2 74.3 L ABG HCO3 35.6 H ABG O2 Saturation 95.8 ABG Base Excess 11.0 FiO2 1L Sodium 136.5 L Potassium 3.9 Chloride 99 Carbon Dioxide 33 H Anion Gap 5 BUN 7 Creatinine 0.66 Est GFR ( Amer) > 60 Est GFR (Non-Af Amer) > 60 Glucose 104 Calcium 8.5 Magnesium 1.6 Impressions: Abdomen/Pelvis CT 12/29/16 06:21 IMPRESSION: Pneumoperitoneum, most likely due to perforated gastric or duodenal ulcer. Small Bowel X-Ray 01/03/17 00:00 IMPRESSION: NORMAL SMALL BOWEL EXAM. NO EXTRAVASATION OF CONTRAST FROM THE STOMACH. PROMPT GASTRIC EMPTYING. LEFT BASILAR CONSOLIDATION ATELECTASIS VERSUS PNEUMONIA. Chest X-Ray 01/04/17 06:00 IMPRESSION: Persistent right basilar airspace disease most consistent with pneumonia. NG tube is been removed. Central line remains in place. Assessment & Plan - Diagnosis (1) Perforation bowel Is this a current diagnosis for this admission?: No (2) Septic shock Is this a current diagnosis for this admission?: No (3) Respiratory failure Qualifiers: Chronicity: acute Is this a current diagnosis for this admission?: Yes
--- NOTE | 2017-01-04 14:10 | PDOC PROGRESS REPORT ---
Subjective Progress Note for:: 01/04/17 Subjective:: Pt states that she doing ok. Pt states that she has been able to tolerate her diet. Pt states that she is having a lot of diarrhea. Physical Exam Vital Signs: Temp Pulse Resp BP Pulse Ox 98.3 F 95 16 124/59 L 92 01/04/17 09:00 01/04/17 09:00 01/04/17 09:00 01/04/17 09:00 01/04/17 09:00 Intake & Output 01/03/17 01/04/17 01/05/17 06:59 06:59 06:59 Intake Total 3380 2831 340 Output Total 3225 4775 Balance 155 -2064 340 Weight 80.8 kg 80.8 kg General appearance: PRESENT: no acute distress, well-developed, well-nourished Head exam: PRESENT: atraumatic, normocephalic Eye exam: PRESENT: conjunctiva pink, EOMI. ABSENT: scleral icterus Ear exam: PRESENT: normal external ear exam Mouth exam: PRESENT: moist, tongue midline Neck exam: PRESENT: carotid bruit Respiratory exam: PRESENT: other - diminished at bases Cardiovascular exam: PRESENT: RRR. ABSENT: diastolic murmur, rubs, systolic murmur Pulses: PRESENT: normal dorsalis pedis pul Vascular exam: PRESENT: normal capillary refill GI/Abdominal exam: PRESENT: other - + bowel sounds, midline incision closed. Rectal exam: PRESENT: deferred Extremities exam: PRESENT: full ROM. ABSENT: calf tenderness, clubbing, pedal edema Neurological exam: PRESENT: alert, awake, oriented to person, oriented to place , oriented to time, oriented to situation, CN II-XII grossly intact. ABSENT: motor sensory deficit Psychiatric exam: PRESENT: appropriate affect, normal mood. ABSENT: homicidal ideation, suicidal ideation Results Laboratory Results: 01/04/17 05:15 01/04/17 05:15 01/04/17 01/04/17 01/04/17 05:15 05:15 06:00 WBC 6.8 RBC 3.39 L Hgb 10.6 L Hct 30.6 L MCV 90 MCH 31.3 MCHC 34.8 RDW 15.1 H Plt Count 135 L Seg Neutrophils % 84.7 H Lymphocytes % 9.4 L Monocytes % 3.6 Eosinophils % 2.0 Basophils % 0.3 Absolute Neutrophils 5.8 Absolute Lymphocytes 0.6 Absolute Monocytes 0.2 Absolute Eosinophils 0.1 Absolute Basophils 0.0 Carbonic Acid 1.42 H HCO3/H2CO3 Ratio 25:1 ABG pH 7.49 H ABG pCO2 47.3 H ABG pO2 74.3 L ABG HCO3 35.6 H ABG O2 Saturation 95.8 ABG Base Excess 11.0 FiO2 1L Sodium 136.5 L Potassium 3.9 Chloride 99 Carbon Dioxide 33 H Anion Gap 5 BUN 7 Creatinine 0.66 Est GFR ( Amer) > 60 Est GFR (Non-Af Amer) > 60 Glucose 104 Calcium 8.5 Magnesium 1.6 Impressions: Abdomen/Pelvis CT 12/29/16 06:21 IMPRESSION: Pneumoperitoneum, most likely due to perforated gastric or duodenal ulcer. Small Bowel X-Ray 01/03/17 00:00 IMPRESSION: NORMAL SMALL BOWEL EXAM. NO EXTRAVASATION OF CONTRAST FROM THE STOMACH. PROMPT GASTRIC EMPTYING. LEFT BASILAR CONSOLIDATION ATELECTASIS VERSUS PNEUMONIA. Chest X-Ray 01/04/17 06:00 IMPRESSION: Persistent right basilar airspace disease most consistent with pneumonia. NG tube is been removed. Central line remains in place. Assessment & Plan - Diagnosis (1) Septic shock Is this a current diagnosis for this admission?: No Plan: Secondary to Perforated Bowel: Resolved. Imipenem/Cilastatin. (2) Anemia Is this a current diagnosis for this admission?: Yes Plan: Secondary to Acute Blood Loss S/P 2 units of PRBC: Will continue to monitor. Hbg stable. (3) Abdominal pain Qualifiers: Abdominal location: generalized Qualified Code(s): R10.84 - Generalized abdominal pain Is this a current diagnosis for this admission?: Yes Plan: Secondary of Perforated Bowel: Will continue antibiotics. (4) Perforation bowel Is this a current diagnosis for this admission?: No Plan: S/P surgery: Will continue antibiotics. (5) Respiratory failure Qualifiers: Chronicity: acute Is this a current diagnosis for this admission?: Yes Plan: Resolved. (6) Hypokalemia Is this a current diagnosis for this admission?: Yes Plan: Resolved. (7) Hypotension Qualifiers: Hypotension type: unspecified hypotension type Qualified Code(s): I95.9 - Hypotension, unspecified Is this a current diagnosis for this admission?: Yes Plan: Resolved. IVF discontinued. (8) Volume overload Qualifiers: Hypervolemia type: transfusion-associated Qualified Code(s): E87.71 - Transfusion associated circulatory overload Is this a current diagnosis for this admission?: Yes Plan: Resolving. (9) Pneumonia Is this a current diagnosis for this admission?: Yes Plan: Ruled Out: Will write for incentive spirometry. (10) Back pain Qualifiers: Chronicity: chronic Is this a current diagnosis for this admission?: Yes Plan: Pt's request for pain medication has been more associated with her back pain. Will have pt OOB QID and PT/OT work with patient. (11) Hypomagnesemia Is this a current diagnosis for this admission?: Yes Plan: Will give additional Magnesium. (12) DVT prophylaxis Is this a current diagnosis for this admission?: Yes Plan: Lovenox - Time Time Spent with patient: 15-24 minutes
[2017-01-04] MEDS ORDERED: LIDOCAINE 5% (700 MG) TRANSDERMAL ADH..PATCH TP ONE (14:12)
[2017-01-04] MEDS: MAGNESIUM SULFATE/D5W 1 GM/100 ML RTUPB IV SCH ×2 (15:33→16:38)
[2017-01-05] MEDS: PHARMACY COMMUNICATION ORDER MC SCH ×2 (00:10→22:42)
[2017-01-05] MEDS: IMIPENEM/CILASTATIN SODIUM 500 MG in DEXTROSE 5%-WATER 100 ML IV SCH ×2 (06:24→11:49)
[2017-01-05] MEDS: MORPHINE SULFATE 10 MG/ML INJ IV PRN ×3 (06:25→22:25)
[2017-01-05] MEDS: MAGNESIUM SULFATE/D5W 1 GM/100 ML RTUPB IV SCH ×3 (08:45→13:00)
[2017-01-05] MEDS: ENOXAPARIN SODIUM INJ 40 MG/0.4 ML DISP.SYRIN SUBCUT SCH (09:55)
[2017-01-05] MEDS: PANTOPRAZOLE SODIUM 40 MG VIAL IV SCH ×2 (09:57→22:25)
--- NOTE | 2017-01-05 10:38 | PDOC PROGRESS REPORT ---
Subjective Progress Note for:: 01/05/17 Subjective:: Pt states that she is doing ok. Pt states that she is now having loose stool and passing a lot of flatus. Pt states that she is tolerating her diet. Physical Exam Vital Signs: Temp Pulse Resp BP Pulse Ox 98.5 F 93 17 120/59 L 93 01/05/17 07:25 01/05/17 07:25 01/05/17 07:25 01/05/17 07:25 01/05/17 07:25 Intake & Output 01/04/17 01/05/17 01/06/17 06:59 06:59 06:59 Intake Total 2711 1180 Output Total 4726 2900 Balance -2063 Weight 80.8 kg 80.8 kg General appearance: PRESENT: no acute distress, well-developed, well-nourished Head exam: PRESENT: atraumatic, normocephalic Eye exam: PRESENT: conjunctiva pink, EOMI. ABSENT: scleral icterus Ear exam: PRESENT: normal external ear exam Mouth exam: PRESENT: moist, tongue midline Neck exam: ABSENT: carotid bruit, JVD, lymphadenopathy, thyromegaly Respiratory exam: PRESENT: clear to auscultation jose luis. ABSENT: rales, rhonchi, wheezes Cardiovascular exam: PRESENT: RRR. ABSENT: diastolic murmur, rubs, systolic murmur Pulses: PRESENT: normal dorsalis pedis pul GI/Abdominal exam: PRESENT: other - +BS, + closed midline incision Rectal exam: PRESENT: deferred Extremities exam: PRESENT: full ROM. ABSENT: calf tenderness, clubbing, pedal edema Neurological exam: PRESENT: alert, awake, oriented to person, oriented to place , oriented to time, oriented to situation, CN II-XII grossly intact. ABSENT: motor sensory deficit Psychiatric exam: PRESENT: appropriate affect, normal mood. ABSENT: homicidal ideation, suicidal ideation Skin exam: PRESENT: dry, intact, warm. ABSENT: cyanosis, rash Results Laboratory Results: 01/04/17 05:15 01/04/17 05:15 Impressions: Abdomen/Pelvis CT 12/29/16 06:21 IMPRESSION: Pneumoperitoneum, most likely due to perforated gastric or duodenal ulcer. Small Bowel X-Ray 01/03/17 00:00 IMPRESSION: NORMAL SMALL BOWEL EXAM. NO EXTRAVASATION OF CONTRAST FROM THE STOMACH. PROMPT GASTRIC EMPTYING. LEFT BASILAR CONSOLIDATION ATELECTASIS VERSUS PNEUMONIA. Chest X-Ray 01/04/17 06:00 IMPRESSION: Persistent right basilar airspace disease most consistent with pneumonia. NG tube is been removed. Central line remains in place. Assessment & Plan - Diagnosis (1) Septic shock Is this a current diagnosis for this admission?: No Plan: Secondary to Perforated Bowel: Resolved. Imipenem/Cilastatin. (2) Anemia Is this a current diagnosis for this admission?: Yes (3) Diarrhea Qualifiers: Diarrhea type: unspecified type Qualified Code(s): R19.7 - Diarrhea, unspecified Is this a current diagnosis for this admission?: Yes Plan: C. diff pending. (4) Abdominal pain Qualifiers: Abdominal location: generalized Qualified Code(s): R10.84 - Generalized abdominal pain Is this a current diagnosis for this admission?: Yes Plan: Secondary of Perforated Bowel: Will continue antibiotics. (5) Perforation bowel Is this a current diagnosis for this admission?: No Plan: S/P surgery: Will continue antibiotics. (6) Volume overload Qualifiers: Hypervolemia type: transfusion-associated Qualified Code(s): E87.71 - Transfusion associated circulatory overload Is this a current diagnosis for this admission?: Yes Plan: Resolved. Will check CXR in am (7) Respiratory failure Qualifiers: Chronicity: acute Is this a current diagnosis for this admission?: Yes Plan: Resolved. (8) Hypomagnesemia Is this a current diagnosis for this admission?: Yes Plan: Will give additional Magnesium. (9) Hypokalemia Is this a current diagnosis for this admission?: Yes Plan: Resolved. (10) Hypotension Qualifiers: Hypotension type: unspecified hypotension type Qualified Code(s): I95.9 - Hypotension, unspecified Is this a current diagnosis for this admission?: Yes Plan: Resolved. IVF discontinued. (11) Pneumonia Is this a current diagnosis for this admission?: Yes Plan: Ruled Out: Incentive spirometry. (12) Back pain Qualifiers: Chronicity: chronic Is this a current diagnosis for this admission?: Yes Plan: Pt's request for pain medication has been more associated with her back pain. OOB QID and PT/OT work with patient. (13) DVT prophylaxis Is this a current diagnosis for this admission?: Yes Plan: Lovenox - Time Time Spent with patient: 15-24 minutes
[2017-01-05] MEDS: LIDOCAINE 5% (700 MG) TRANSDERMAL ADH..PATCH TP SCH (11:49)
[2017-01-05] MEDS ORDERED: MAGNESIUM SULFATE/D5W 1 GM/100 ML RTUPB IV ONE (13:00)
--- NOTE | 2017-01-05 21:48 | PROGRESS NOTE E ---
Progress Note NAME: VINOD MCCARTHY : 1940 AGE: 76Y DATE: 01/05/2017 ROOM: 414 SUBJECTIVE: She is about the seventh postop day. Her blood count is normal. She had a couple of liquid bowel movements this morning which was tested for C. diff. C. diff was negative. The abdomen is soft and nontender. Incision is clean and dry. Her white count remained normal and afebrile. We can hold off the IV antibiotics for now because they may be adding to the diarrhea. All of her numbers are good indicating control of the infection from the perforation. PLAN: The plan is for her to be transferred to a rehab facility and hopefully this can be done in the next 2 days on Sunday. DICTATING PHYSICIAN: MELQUIADES BAUMAN M.D. [id number] PHY#: [id number] ID: [id number] JOB#: [id number] ACCT: [id number] cc: >
[2017-01-06 06:09] LABS: ANION GAP 5 (5-19); BLOOD UREA NITROGEN 9 mg/dL (7-20); CALCIUM 8.7 mg/dL (8.4-10.2); CARBON DIOXIDE 34 mmol/L (22-30); CHLORIDE 99 mmol/L (98-107); CREATININE RESULT 0.64 mg/dL (0.52-1.25); GLUCOSE 110 mg/dL (75-110); MAGNESIUM 1.9 mg/dL (1.6-2.3); POTASSIUM 3.5 mmol/L (3.6-5.0); SODIUM 138.3 mmol/L (137-145)
[2017-01-06] MEDS: MORPHINE SULFATE 10 MG/ML INJ IV PRN ×3 (06:49→22:42)
[2017-01-06] MEDS: ENOXAPARIN SODIUM INJ 40 MG/0.4 ML DISP.SYRIN SUBCUT SCH (09:00)
[2017-01-06] MEDS: PANTOPRAZOLE SODIUM 40 MG VIAL IV SCH (09:07)
[2017-01-06] MEDS: LIDOCAINE 5% (700 MG) TRANSDERMAL ADH..PATCH TP SCH (09:07)
[2017-01-06] MEDS ORDERED: POTASSIUM CHLORIDE 10 MEQ TABLET.SA PO ONE (09:30)
[2017-01-06] MEDS ORDERED: MAGNESIUM SULFATE/D5W 1 GM/100 ML RTUPB IV SCH (09:30)
[2017-01-06] MEDS ORDERED: MAGNESIUM SULFATE/D5W 1 GM/100 ML RTUPB IV ONE (13:30)
--- NOTE | 2017-01-06 14:56 | PDOC PROGRESS REPORT ---
Subjective Progress Note for:: 01/06/17 Subjective:: Pt states that she would like to having her home medications restarted. Pt states that she is having back pain. Physical Exam Vital Signs: Temp Pulse Resp BP Pulse Ox 98.6 F 93 17 118/55 L 97 01/06/17 11:31 01/06/17 11:31 01/06/17 11:31 01/06/17 11:31 01/06/17 11:31 Intake & Output 01/05/17 01/06/17 01/07/17 06:59 06:59 06:59 Intake Total 1180 1460 Output Total 2900 2024 Balance -1720 -565 Weight 80.8 kg 80.8 kg General appearance: PRESENT: no acute distress, well-developed, well-nourished Head exam: PRESENT: atraumatic, normocephalic Eye exam: PRESENT: conjunctiva pink, EOMI. ABSENT: scleral icterus Ear exam: PRESENT: normal external ear exam Mouth exam: PRESENT: moist, tongue midline Neck exam: ABSENT: carotid bruit, JVD, lymphadenopathy, thyromegaly Respiratory exam: PRESENT: clear to auscultation jose luis. ABSENT: rales, rhonchi, wheezes Cardiovascular exam: PRESENT: RRR. ABSENT: diastolic murmur, rubs, systolic murmur Pulses: PRESENT: normal dorsalis pedis pul Vascular exam: PRESENT: normal capillary refill GI/Abdominal exam: PRESENT: tenderness - Pt mild tenderness, + BS Rectal exam: PRESENT: deferred Extremities exam: PRESENT: full ROM. ABSENT: calf tenderness, clubbing, pedal edema Musculoskeletal exam: PRESENT: full ROM Neurological exam: PRESENT: alert, awake, oriented to person, oriented to place , oriented to time, oriented to situation, CN II-XII grossly intact. ABSENT: motor sensory deficit Psychiatric exam: PRESENT: appropriate affect, normal mood. ABSENT: homicidal ideation, suicidal ideation Skin exam: PRESENT: dry, intact, warm. ABSENT: cyanosis, rash Results Laboratory Results: 01/04/17 05:15 01/06/17 05:27 01/06/17 05:27 Sodium 138.3 Potassium 3.5 L Chloride 99 Carbon Dioxide 34 H Anion Gap 5 BUN 9 Creatinine 0.64 Est GFR ( Amer) > 60 Est GFR (Non-Af Amer) > 60 Glucose 110 Calcium 8.7 Magnesium 1.9 Impressions: Abdomen/Pelvis CT 12/29/16 06:21 IMPRESSION: Pneumoperitoneum, most likely due to perforated gastric or duodenal ulcer. Small Bowel X-Ray 01/03/17 00:00 IMPRESSION: NORMAL SMALL BOWEL EXAM. NO EXTRAVASATION OF CONTRAST FROM THE STOMACH. PROMPT GASTRIC EMPTYING. LEFT BASILAR CONSOLIDATION ATELECTASIS VERSUS PNEUMONIA. Chest X-Ray 01/04/17 06:00 IMPRESSION: Persistent right basilar airspace disease most consistent with pneumonia. NG tube is been removed. Central line remains in place. Assessment & Plan - Diagnosis (1) Septic shock Is this a current diagnosis for this admission?: No Plan: Secondary to Perforated Bowel: Resolved. (2) Anemia Is this a current diagnosis for this admission?: Yes Plan: Secondary to Acute Blood Loss S/P 2 units of PRBC: Will continue to monitor. Hbg stable. (3) Diarrhea Qualifiers: Diarrhea type: unspecified type Qualified Code(s): R19.7 - Diarrhea, unspecified Is this a current diagnosis for this admission?: Yes Plan: Will continue to monitor. (4) Hypokalemia Is this a current diagnosis for this admission?: Yes Plan: Potassium replacement. (5) Hypomagnesemia Is this a current diagnosis for this admission?: Yes Plan: Will give additional Magnesium. (6) Abdominal pain Qualifiers: Abdominal location: generalized Qualified Code(s): R10.84 - Generalized abdominal pain Is this a current diagnosis for this admission?: Yes Plan: Secondary of Perforated Bowel: Improving. (7) Perforation bowel Is this a current diagnosis for this admission?: No Plan: S/P surgery: Will continue antibiotics. (8) Volume overload Qualifiers: Hypervolemia type: transfusion-associated Qualified Code(s): E87.71 - Transfusion associated circulatory overload Is this a current diagnosis for this admission?: Yes Plan: Resolved. (9) Respiratory failure Qualifiers: Chronicity: acute Is this a current diagnosis for this admission?: Yes Plan: Resolved. (10) Hypotension Qualifiers: Hypotension type: unspecified hypotension type Qualified Code(s): I95.9 - Hypotension, unspecified Is this a current diagnosis for this admission?: Yes Plan: Resolved. (11) Pneumonia Is this a current diagnosis for this admission?: Yes Plan: Ruled Out: Incentive spirometry. (12) Back pain Qualifiers: Chronicity: chronic Is this a current diagnosis for this admission?: Yes Plan: Pt's request for pain medication has been more associated with her back pain. OOB QID and PT/OT work with patient. (13) DVT prophylaxis Is this a current diagnosis for this admission?: Yes Plan: Lovenox - Time Time Spent with patient: 15-24 minutes
--- NOTE | 2017-01-06 15:43 | PROGRESS NOTE E ---
Progress Note NAME: VINOD MCCARTHY : 1940 AGE: 76Y DATE: 01/06/2017 ROOM: 414 SUBJECTIVE/OBJECTIVE: The patient has minimal abdominal pains. She is able to have a bowel movement that is more formed compared to yesterday. She remains afebrile and the abdomen is soft and nontender. Incision is clean and dry. She is just eating a small amount of food at this time since she feels she gets easily full. PLAN: Continue to observe and increase her p.o. intake and increase activity. The plan is also to transfer her to a rehab facility on Sunday. DICTATING PHYSICIAN: MELQUIADES BAUMAN M.D. [id number] PHY#: [id number] ID: [id number] JOB#: [id number] ACCT: [id number] cc: >
[2017-01-06] MEDS: GABAPENTIN 300 MG CAPSULE PO PRN (19:31)
[2017-01-06] MEDS ORDERED: (PENDING PHARMACY ID) (Rosuvastatin Calcium [Crestor 20 Mg Tablet] 20 MG) PO SCH (22:00)
[2017-01-06] MEDS: ATORVASTATIN CALCIUM 40 MG TABLET PO SCH (22:29)
[2017-01-06] MEDS: PHARMACY COMMUNICATION ORDER MC SCH (22:37)
[2017-01-07] MEDS: MORPHINE SULFATE 10 MG/ML INJ IV PRN (06:06)
[2017-01-07 07:24] LABS: BLOOD UREA NITROGEN 9 mg/dL (7-20); CALCIUM 8.8 mg/dL (8.4-10.2); CHLORIDE 101 mmol/L (98-107); GLUCOSE 102 mg/dL (75-110); MAGNESIUM 1.9 mg/dL (1.6-2.3)
[2017-01-07 07:30] LABS: ABSOLUTE EOSINOPHILS # (AUTO) 0.1 10^3/uL (0.0-0.6); ABSOLUTE LYMPHOCYTES (AUTO) 0.5 10^3/uL (0.5-4.7); ABSOLUTE MONOCYTES (AUTO) 0.2 10^3/uL (0.1-1.4); ABSOLUTE NEUT (AUTO) 4.9 10^3/uL (1.7-8.2); BASOPHILS % (AUTO) 0.3 % (0-2); EOSINOPHILS % (AUTO) 1.8 % (0-6); HEMATOCRIT 27.1 % (36.0-47.0); HEMOGLOBIN 9.5 g/dL (12.0-15.5); HGB HCT DIFFERENCE 1.4; LYMPHOCYTES % (AUTO) 8.9 % (13-45); MEAN CORPUSCULAR HEMOGLOBIN 31.5 pg (27.0-33.4); MEAN CORPUSCULAR HGB CONC 34.9 g/dL (32.0-36.0); MEAN CORPUSCULAR VOLUME 90 fl (80-97); MONOCYTES % (AUTO) 3.3 % (3-13); RED CELL DISTRIBUTION WIDTH 14.7 % (11.5-14.0); SEGMENTED NEUTROPHILS % (AUTO) 85.7 % (42-78); WHITE BLOOD COUNT 5.8 10^3/uL (4.0-10.5)
[2017-01-07 07:36] LABS: CARBON DIOXIDE 32 mmol/L (22-30); SODIUM 137.9 mmol/L (137-145)
[2017-01-07 07:37] LABS: ANION GAP 5 (5-19)
[2017-01-07] MEDS: LEVOTHYROXINE SODIUM 0.05 MG TABLET PO SCH (08:02)
[2017-01-07] MEDS: ENOXAPARIN SODIUM INJ 40 MG/0.4 ML DISP.SYRIN SUBCUT SCH (10:32)
[2017-01-07] MEDS: CETIRIZINE 10 MG TABLET PO SCH (10:34)
[2017-01-07] MEDS: GABAPENTIN 300 MG CAPSULE PO PRN ×2 (10:34→21:37)
[2017-01-07] MEDS: LIDOCAINE 5% (700 MG) TRANSDERMAL ADH..PATCH TP SCH (10:34)
--- NOTE | 2017-01-07 17:07 | PDOC PROGRESS REPORT ---
Subjective Progress Note for:: 01/07/17 Subjective:: Patient was seen earlier this morning. Patient states that she is doing much better. Patient states that she slept well overnight. Patient reports that her stools are now loose and she is not having diarrhea. Nursing reports that she encourage patient to eat more solid foods instead of yogurt. Physical Exam Vital Signs: Temp Pulse Resp BP Pulse Ox 98.9 F 91 18 113/52 L 91 L 01/07/17 15:19 01/07/17 15:19 01/07/17 15:19 01/07/17 15:19 01/07/17 15:19 Intake & Output 01/06/17 01/07/17 01/08/17 06:59 06:59 06:59 Intake Total 1460 1547 939 Output Total 2025 1300 Balance -565 247 939 Weight 80.8 kg 80.8 kg General appearance: PRESENT: no acute distress, well-developed, well-nourished Head exam: PRESENT: atraumatic, normocephalic Eye exam: PRESENT: conjunctiva pink, EOMI, PERRLA. ABSENT: scleral icterus Ear exam: PRESENT: normal external ear exam Mouth exam: PRESENT: moist, tongue midline Neck exam: ABSENT: carotid bruit, JVD, lymphadenopathy, thyromegaly Respiratory exam: PRESENT: clear to auscultation jose luis. ABSENT: rales, rhonchi, wheezes Cardiovascular exam: PRESENT: RRR. ABSENT: diastolic murmur, rubs, systolic murmur Pulses: PRESENT: normal dorsalis pedis pul Vascular exam: PRESENT: normal capillary refill GI/Abdominal exam: PRESENT: other - Positive for bowel sounds, midline closed incision intact Rectal exam: PRESENT: deferred Extremities exam: PRESENT: full ROM. ABSENT: calf tenderness, clubbing, pedal edema Neurological exam: PRESENT: alert, awake, oriented to person, oriented to place , oriented to time, oriented to situation, CN II-XII grossly intact. ABSENT: motor sensory deficit Psychiatric exam: PRESENT: appropriate affect, normal mood. ABSENT: homicidal ideation, suicidal ideation Skin exam: PRESENT: dry, intact, warm. ABSENT: cyanosis, rash Results Laboratory Results: 01/07/17 06:10 01/07/17 06:10 01/07/17 01/07/17 06:10 06:10 WBC 5.8 RBC 3.00 L Hgb 9.5 L Hct 27.1 L MCV 90 MCH 31.5 MCHC 34.9 RDW 14.7 H Plt Count 165 Seg Neutrophils % 85.7 H Lymphocytes % 8.9 L Monocytes % 3.3 Eosinophils % 1.8 Basophils % 0.3 Absolute Neutrophils 4.9 Absolute Lymphocytes 0.5 Absolute Monocytes 0.2 Absolute Eosinophils 0.1 Absolute Basophils 0.0 Sodium 137.9 Potassium 4.0 Chloride 101 Carbon Dioxide 32 H Anion Gap 5 BUN 9 Creatinine 0.60 Est GFR ( Amer) > 60 Est GFR (Non-Af Amer) > 60 Glucose 102 Calcium 8.8 Magnesium 1.9 Impressions: Abdomen/Pelvis CT 12/29/16 06:21 IMPRESSION: Pneumoperitoneum, most likely due to perforated gastric or duodenal ulcer. Small Bowel X-Ray 01/03/17 00:00 IMPRESSION: NORMAL SMALL BOWEL EXAM. NO EXTRAVASATION OF CONTRAST FROM THE STOMACH. PROMPT GASTRIC EMPTYING. LEFT BASILAR CONSOLIDATION ATELECTASIS VERSUS PNEUMONIA. Chest X-Ray 01/04/17 06:00 IMPRESSION: Persistent right basilar airspace disease most consistent with pneumonia. NG tube is been removed. Central line remains in place. Assessment & Plan - Diagnosis (1) Septic shock Is this a current diagnosis for this admission?: No Plan: Secondary to Perforated Bowel: Resolved. (2) Anemia Is this a current diagnosis for this admission?: Yes Plan: Secondary to Acute Blood Loss S/P 2 units of PRBC: Will continue to monitor. Hbg stable. (3) Diarrhea Qualifiers: Diarrhea type: unspecified type Qualified Code(s): R19.7 - Diarrhea, unspecified Is this a current diagnosis for this admission?: Yes Plan: Will continue to monitor. (4) Hypokalemia Is this a current diagnosis for this admission?: Yes Plan: Resolved. (5) Hypomagnesemia Is this a current diagnosis for this admission?: Yes Plan: Will give additional Magnesium. (6) Abdominal pain Qualifiers: Abdominal location: generalized Qualified Code(s): R10.84 - Generalized abdominal pain Is this a current diagnosis for this admission?: Yes Plan: Secondary of Perforated Bowel: Improving. (7) Perforation bowel Is this a current diagnosis for this admission?: No Plan: S/P surgery: Pt off antibiotics. (8) Volume overload Qualifiers: Hypervolemia type: transfusion-associated Qualified Code(s): E87.71 - Transfusion associated circulatory overload Is this a current diagnosis for this admission?: Yes Plan: Resolved. (9) Respiratory failure Qualifiers: Chronicity: acute Is this a current diagnosis for this admission?: Yes Plan: Resolved. (10) Hypotension Qualifiers: Hypotension type: unspecified hypotension type Qualified Code(s): I95.9 - Hypotension, unspecified Is this a current diagnosis for this admission?: Yes Plan: Resolved. (11) Pneumonia Is this a current diagnosis for this admission?: Yes Plan: Ruled Out: Incentive spirometry. (12) Back pain Qualifiers: Chronicity: chronic Is this a current diagnosis for this admission?: Yes Plan: OOB QID and PT/OT work with patient. (13) DVT prophylaxis Is this a current diagnosis for this admission?: Yes Plan: Lovenox - Time Time Spent with patient: 15-24 minutes
[2017-01-07] MEDS: MAGNESIUM SULFATE/D5W 1 GM/100 ML RTUPB IV SCH ×2 (18:03→19:33)
--- NOTE | 2017-01-07 20:53 | PROGRESS NOTE E ---
Progress Note NAME: VINOD MCCARTHY : 1940 AGE: 76Y DATE: 01/07/2017 ROOM: 414 SUBJECTIVE: This is the ninth postoperative day. She is off IV antibiotics and her white count remains normal and afebrile. Abdominal wound looks good. Abdomen is soft and nontender. She is tolerating a small amount of regular diet at this time. The plan is to transfer her to a rehab facility hopefully by tomorrow and we will be followed up in the surgical clinic in 2 weeks. DICTATING PHYSICIAN: MELQUIADES BAUMAN M.D. [id number] PHY#: [id number] ID: [id number] JOB#: [id number] ACCT: [id number] cc: >
[2017-01-07] MEDS: ATORVASTATIN CALCIUM 40 MG TABLET PO SCH (21:36)
[2017-01-07] MEDS: PHARMACY COMMUNICATION ORDER MC SCH (22:39)
[2017-01-08] MEDS: MORPHINE SULFATE 10 MG/ML INJ IV PRN (02:13)
[2017-01-08 06:40] LABS: ANION GAP 6 (5-19); BLOOD UREA NITROGEN 13 mg/dL (7-20); CALCIUM 8.8 mg/dL (8.4-10.2); CARBON DIOXIDE 32 mmol/L (22-30); CHLORIDE 100 mmol/L (98-107); CREATININE RESULT 0.61 mg/dL (0.52-1.25); GLUCOSE 119 mg/dL (75-110); SODIUM 137.7 mmol/L (137-145)
[2017-01-08] MEDS: LEVOTHYROXINE SODIUM 0.05 MG TABLET PO SCH (07:42)
[2017-01-08] MEDS: ENOXAPARIN SODIUM INJ 40 MG/0.4 ML DISP.SYRIN SUBCUT SCH (10:00)
[2017-01-08] MEDS: LIDOCAINE 5% (700 MG) TRANSDERMAL ADH..PATCH TP SCH (10:03)
[2017-01-08] MEDS: ACETAMINOPHEN 325 MG TABLET PO PRN ×3 (10:03→19:48)
[2017-01-08] MEDS: CETIRIZINE 10 MG TABLET PO SCH (10:03)
[2017-01-08] MEDS: GABAPENTIN 300 MG CAPSULE PO PRN ×2 (10:03→19:48)
--- NOTE | 2017-01-08 10:38 | PDOC PROGRESS REPORT ---
Subjective Progress Note for:: 01/08/17 Subjective:: awake Physical Exam Vital Signs: Temp Pulse Resp BP Pulse Ox 98.8 F 90 16 101/53 L 96 01/08/17 07:13 01/08/17 07:13 01/08/17 07:13 01/08/17 07:13 01/08/17 07:13 Intake & Output 01/07/17 01/08/17 01/09/17 06:59 06:59 06:59 Intake Total 1547 1289 Output Total 1300 400 Balance 247 889 Weight 80.8 kg 74.8 kg General appearance: PRESENT: no acute distress, cooperative, disheveled, obese, well-developed Head exam: PRESENT: atraumatic, normocephalic Eye exam: PRESENT: conjunctiva pale, EOMI Mouth exam: PRESENT: dry mucosa, neck supple, tongue midline Neck exam: ABSENT: carotid bruit, JVD, lymphadenopathy, thyromegaly Respiratory exam: PRESENT: decreased breath sounds, prolonged expiratory phas, rhonchi, symmetrical, unlabored. ABSENT: rales, retraction, stridor, tachypnea Cardiovascular exam: PRESENT: RRR, +S1, +S2 Pulses: PRESENT: normal radial pulses GI/Abdominal exam: PRESENT: ascites Rectal exam: PRESENT: deferred Musculoskeletal exam: PRESENT: normal inspection Neurological exam: PRESENT: awake Skin exam: PRESENT: dry, warm Results Laboratory Results: 01/07/17 06:10 01/08/17 06:12 01/08/17 06:12 Sodium 137.7 Potassium 4.0 Chloride 100 Carbon Dioxide 32 H Anion Gap 6 BUN 13 Creatinine 0.61 Est GFR ( Amer) > 60 Est GFR (Non-Af Amer) > 60 Glucose 119 H Calcium 8.8 Magnesium 2.0 Impressions: Abdomen/Pelvis CT 12/29/16 06:21 IMPRESSION: Pneumoperitoneum, most likely due to perforated gastric or duodenal ulcer. Small Bowel X-Ray 01/03/17 00:00 IMPRESSION: NORMAL SMALL BOWEL EXAM. NO EXTRAVASATION OF CONTRAST FROM THE STOMACH. PROMPT GASTRIC EMPTYING. LEFT BASILAR CONSOLIDATION ATELECTASIS VERSUS PNEUMONIA. Chest X-Ray 01/04/17 06:00 IMPRESSION: Persistent right basilar airspace disease most consistent with pneumonia. NG tube is been removed. Central line remains in place. Assessment & Plan - Diagnosis (1) Perforation bowel Is this a current diagnosis for this admission?: No (2) Septic shock Is this a current diagnosis for this admission?: No (3) Respiratory failure Qualifiers: Chronicity: acute Is this a current diagnosis for this admission?: Yes Plan: Stable at this time
--- NOTE | 2017-01-08 14:31 | PDOC PROGRESS REPORT ---
Subjective Progress Note for:: 01/08/17 Subjective:: Patient states that she is doing well this morning. Patient states that she did not sleep well overnight. Physical Exam Vital Signs: Temp Pulse Resp BP Pulse Ox 98.6 F 86 16 107/47 L 94 01/08/17 11:11 01/08/17 11:11 01/08/17 11:11 01/08/17 11:11 01/08/17 11:11 Intake & Output 01/07/17 01/08/17 01/09/17 06:59 06:59 06:59 Intake Total 1547 1289 5 Output Total 1300 400 Balance 247 889 5 Weight 80.8 kg 74.8 kg General appearance: PRESENT: no acute distress, well-developed, well-nourished Head exam: PRESENT: atraumatic, normocephalic Eye exam: PRESENT: conjunctiva pink, EOMI, PERRLA. ABSENT: scleral icterus Ear exam: PRESENT: normal external ear exam Mouth exam: PRESENT: moist, tongue midline Neck exam: ABSENT: carotid bruit, JVD, lymphadenopathy, thyromegaly Respiratory exam: PRESENT: clear to auscultation jose luis. ABSENT: rales, rhonchi, wheezes Cardiovascular exam: PRESENT: bradycardia Pulses: PRESENT: normal dorsalis pedis pul Vascular exam: PRESENT: normal capillary refill GI/Abdominal exam: PRESENT: normal bowel sounds, tenderness - closed midline incision, No signs of infection. Rectal exam: PRESENT: deferred Extremities exam: PRESENT: full ROM. ABSENT: calf tenderness, clubbing, pedal edema Neurological exam: PRESENT: alert, awake, oriented to person, oriented to place , oriented to time, oriented to situation, CN II-XII grossly intact. ABSENT: motor sensory deficit Psychiatric exam: PRESENT: appropriate affect, normal mood. ABSENT: homicidal ideation, suicidal ideation Skin exam: PRESENT: dry, intact, warm. ABSENT: cyanosis, rash Results Laboratory Results: 01/07/17 06:10 01/08/17 06:12 01/08/17 06:12 Sodium 137.7 Potassium 4.0 Chloride 100 Carbon Dioxide 32 H Anion Gap 6 BUN 13 Creatinine 0.61 Est GFR ( Amer) > 60 Est GFR (Non-Af Amer) > 60 Glucose 119 H Calcium 8.8 Magnesium 2.0 Impressions: Abdomen/Pelvis CT 12/29/16 06:21 IMPRESSION: Pneumoperitoneum, most likely due to perforated gastric or duodenal ulcer. Small Bowel X-Ray 01/03/17 00:00 IMPRESSION: NORMAL SMALL BOWEL EXAM. NO EXTRAVASATION OF CONTRAST FROM THE STOMACH. PROMPT GASTRIC EMPTYING. LEFT BASILAR CONSOLIDATION ATELECTASIS VERSUS PNEUMONIA. Chest X-Ray 01/04/17 06:00 IMPRESSION: Persistent right basilar airspace disease most consistent with pneumonia. NG tube is been removed. Central line remains in place. Assessment & Plan - Diagnosis (1) Septic shock Is this a current diagnosis for this admission?: No Plan: Secondary to Perforated Bowel: Resolved. (2) Anemia Is this a current diagnosis for this admission?: Yes Plan: Secondary to Acute Blood Loss S/P 2 units of PRBC: Will continue to monitor. Hbg stable. (3) Diarrhea Qualifiers: Diarrhea type: unspecified type Qualified Code(s): R19.7 - Diarrhea, unspecified Is this a current diagnosis for this admission?: Yes Plan: Will continue to monitor. (4) Hypokalemia Is this a current diagnosis for this admission?: Yes Plan: Resolved. (5) Hypomagnesemia Is this a current diagnosis for this admission?: Yes Plan: Resolved (6) Abdominal pain Qualifiers: Abdominal location: generalized Qualified Code(s): R10.84 - Generalized abdominal pain Is this a current diagnosis for this admission?: Yes Plan: Secondary of Perforated Bowel: Improving. (7) Perforation bowel Is this a current diagnosis for this admission?: No Plan: S/P surgery: Pt off antibiotics. (8) Gastric ulcer Qualifiers: Gastric ulcer chronicity: acute Gastric ulcer complication status: with both hemorrhage and perforation Qualified Code(s): K25.2 - Acute gastric ulcer with both hemorrhage and perforation Is this a current diagnosis for this admission?: Yes Plan: Pt on PPI oral BID (9) Volume overload Qualifiers: Hypervolemia type: transfusion-associated Qualified Code(s): E87.71 - Transfusion associated circulatory overload Is this a current diagnosis for this admission?: Yes Plan: Resolved. (10) Respiratory failure Qualifiers: Chronicity: acute Is this a current diagnosis for this admission?: Yes Plan: Resolved. (11) Hypotension Qualifiers: Hypotension type: unspecified hypotension type Qualified Code(s): I95.9 - Hypotension, unspecified Is this a current diagnosis for this admission?: Yes Plan: Resolved. (12) Pneumonia Is this a current diagnosis for this admission?: Yes Plan: Ruled Out: Incentive spirometry. (13) Back pain Qualifiers: Chronicity: chronic Is this a current diagnosis for this admission?: Yes Plan: OOB QID and PT/OT work with patient. (14) DVT prophylaxis Is this a current diagnosis for this admission?: Yes Plan: Lovenox
--- NOTE | 2017-01-08 14:37 | TRANSFER SUMMARY E ---
Transfer Summary NAME: VINOD MCCARTHY : 1940 AGE: 76Y ADMITTED: 12/29/2016 TRANSFERRED: 01/08/2017 REASON FOR ADMISSION: Acute abdominal pain. SUMMARY OF HOSPITALIZATION: The patient is a 76-year-old white female who presents to the emergency department complaining of unresolved abdominal pain. She was evaluated by CT scan of the abdomen and pelvis and found to have evidence of pneumoperitoneum. The patient was resuscitated, and admitted to the Surgical Service. She was subsequently taken to the operating room by Dr. Melquiades Logan where she underwent exploratory laparotomy, Jose M patch repair of pre-pyloric gastric perforation, small bowel resection due to dense adhesions. She tolerated the operating reasonably well. She had a gallo postoperative course for several days requiring ventilatory support and pressor support. Patient had a central line placed the first postoperative day. Over the ensuing days, she improved clinically an slowly the pressors were weaned as was the ventilatory support. Her lactic acid has cleared. Eventually, she was extubated by the third postoperative day. She had a contrast CT scan on 01/03/2017 which showed excellent evacuation of gastric contents into the duodenum with no evidence of obstruction. She continued to improve clinically. She did have some postoperative pneumonia which was treated with intravenous antibiotics. By the 10th postoperative day, she was getting about reasonably well considering her advanced age and chronic medical problems. Her antibiotics were weaned off and she was felt to be a candidate for transfer to the rehab facility. FINAL DIAGNOSES: 1. ACUTE GASTRIC PERFORATION SECONDARY TO ULCER WITH CONTAMINATION, SMALL BOWEL OBSTRUCTION WITH DENUDED SMALL BOWELL, STATUS POST RESECTION, DR. MELQUIADES LOGAN. 2. SEPSIS SECONDARY TO #1 ABOVE. 3. PNEUMONIA, RESOLVED. 4. HISTORY OF ARTHRITIS. 5. HISTORY OF PREVIOUS ABDOMINAL SURGERY INCLUDING SUSANA-BSO FOR OVARIAN CARCINOMA. DISPOSITION: The patient will be transferred to the [facility], back on her preadmission pharmaceuticals and be on a proton pump inhibitor. Patient will followup with the [facility] in approximately 1-2 weeks. 6. DICTATING PHYSICIAN: ISAMAR CHRISTIANSEN M.D. [id number] PHY#: [id number] ID: [id number] JOB#: [id number] ACCT: [id number] cc:ISAMAR CHRISTIANSEN M.D. > RICHARDD
[2017-01-08] MEDS ORDERED: LANSOPRAZOLE 30 MG TAB.RAP.DR PO ONE (14:45)
[2017-01-08] MEDS: ATORVASTATIN CALCIUM 40 MG TABLET PO SCH (21:15)
[2017-01-08] MEDS: PHARMACY COMMUNICATION ORDER MC SCH (21:31)
[2017-01-09] MEDS: ACETAMINOPHEN 325 MG TABLET PO PRN ×4 (00:16→16:33)
[2017-01-09] MEDS: LANSOPRAZOLE 30 MG TAB.RAP.DR PO SCH ×2 (04:45→16:33)
[2017-01-09] MEDS: GABAPENTIN 300 MG CAPSULE PO PRN (04:45)
[2017-01-09] MEDS: LEVOTHYROXINE SODIUM 0.05 MG TABLET PO SCH (08:33)
--- NOTE | 2017-01-09 09:53 | PROGRESS NOTE E ---
Progress Note NAME: VINOD MCCARTHY : 1940 AGE: 76Y DATE: 01/09/2017 ROOM: 414 SUBJECTIVE: This is about the eleventh postop day post repair of a perforated gastric ulcer with extensive adhesiolysis. Patient has been tolerating her diet well. OBJECTIVE: The wound looks good and healing well. All the alma delia will be removed today. The abdomen is soft and nontender. She has more formed stools today. PLAN: Placement will be made by discharge planning nurse to have her transferred to a rehab facility hopefully today. DICTATING PHYSICIAN: MELQUIADES BAUMAN M.D. [id number] PHY#: [id number] ID: [id number] JOB#: [id number] ACCT: [id number] cc: >
[2017-01-09] MEDS: LIDOCAINE 5% (700 MG) TRANSDERMAL ADH..PATCH TP SCH (12:42)
[2017-01-09] MEDS: ENOXAPARIN SODIUM INJ 40 MG/0.4 ML DISP.SYRIN SUBCUT SCH (12:42)
[2017-01-09] MEDS: CETIRIZINE 10 MG TABLET PO SCH (12:42)
--- NOTE | 2017-01-09 14:26 | PDOC PROGRESS REPORT ---
Subjective Progress Note for:: 01/09/17 Subjective:: awake Physical Exam Vital Signs: Temp Pulse Resp BP Pulse Ox 98.6 F 91 17 111/48 L 92 01/09/17 12:18 01/09/17 12:18 01/09/17 12:18 01/09/17 12:18 01/09/17 12:18 Intake & Output 01/08/17 01/09/17 01/10/17 06:59 06:59 06:59 Intake Total 1289 420 Output Total 400 850 Balance 889 -430 Weight 74.8 kg 73.4 kg General appearance: PRESENT: no acute distress, cooperative, disheveled, well- developed Head exam: PRESENT: atraumatic, normocephalic Eye exam: PRESENT: conjunctiva pale, EOMI Mouth exam: PRESENT: dry mucosa, neck supple, tongue midline Neck exam: ABSENT: carotid bruit, JVD, lymphadenopathy, thyromegaly Respiratory exam: PRESENT: decreased breath sounds, prolonged expiratory phas, rhonchi, symmetrical, unlabored. ABSENT: crackles, rales, retraction, stridor, tachypnea, wheezes Cardiovascular exam: PRESENT: RRR, +S1, +S2 Pulses: PRESENT: normal radial pulses GI/Abdominal exam: PRESENT: normal bowel sounds, soft. ABSENT: distended, guarding, mass, organolmegaly, rebound, tenderness Rectal exam: PRESENT: deferred Gentrourinary exam: PRESENT: indwelling catheter Musculoskeletal exam: PRESENT: normal inspection Neurological exam: PRESENT: awake Skin exam: PRESENT: dry Results Laboratory Results: 01/07/17 06:10 01/08/17 06:12 Impressions: Abdomen/Pelvis CT 12/29/16 06:21 IMPRESSION: Pneumoperitoneum, most likely due to perforated gastric or duodenal ulcer. Small Bowel X-Ray 01/03/17 00:00 IMPRESSION: NORMAL SMALL BOWEL EXAM. NO EXTRAVASATION OF CONTRAST FROM THE STOMACH. PROMPT GASTRIC EMPTYING. LEFT BASILAR CONSOLIDATION ATELECTASIS VERSUS PNEUMONIA. Chest X-Ray 01/04/17 06:00 IMPRESSION: Persistent right basilar airspace disease most consistent with pneumonia. NG tube is been removed. Central line remains in place. Assessment & Plan - Diagnosis (1) Perforation bowel Is this a current diagnosis for this admission?: No Plan: as per surgery (2) Septic shock Is this a current diagnosis for this admission?: No (3) Respiratory failure Qualifiers: Chronicity: acute Is this a current diagnosis for this admission?: No
[2017-01-09 16:51] VITALS: BP 117/46
[2017-01-09] MEDS ORDERED: OXYCODONE-ACETAMINOPHEN 5-325 MG TABLET PO PRN (17:13)
--- NOTE | 2017-01-11 14:05 | TRANSFER SUMMARY E ---
Transfer Summary NAME: VINOD MCCARTHY : 1940 AGE: 76Y ADMITTED: 12/29/2016 TRANSFERRED: 01/11/2017 ADDENDUM: The patient's transfer from [facility] to the shelter was delayed because of bed unavailability and concern on the part of the shelter regarding the patient being on a proton pump inhibitor. The following day these issues were resolved and the patient was transferred to [facility]. DICTATING PHYSICIAN: ISAMAR CHRISTIANSEN M.D. [id number] PHY#: [id number] ID: [id number] JOB#: [id number] ACCT: [id number] cc:ISAMAR CHRISTIANSEN M.D. >
== END 2017-01-09 19:18 | DRG 326 ==
LOC: ER 06:11 → EH 09:57 → UNDOADMIN 09:57 → EH 15:41 → ICU 15:56 → 4N 01-03 15:21
PROVIDERS: ATTEND Surgery
PROC: 0DU607Z Supplement Stomach with Autologous Tissue Substitute, Open Approach (ICD-10-PCS; 2016-12-29)
PROC: 0DB80ZZ Excision of Small Intestine, Open Approach (ICD-10-PCS; 2016-12-29)
PROC: 0DN80ZZ Release Small Intestine, Open Approach (ICD-10-PCS; 2016-12-29)
PROC: 02HV33Z Insertion of Infusion Device into Superior Vena Cava, Percutaneous Approach (ICD-10-PCS; 2016-12-29)
PROC: 0DQ60ZZ Repair Stomach, Open Approach (ICD-10-PCS; principal; 2016-12-29 10:30)
PROC: 0D9670Z Drainage of Stomach with Drainage Device, Via Natural or Artificial Opening (ICD-10-PCS; 2016-12-31)
PROC: 30233N1 Transfusion of Nonautologous Red Blood Cells into Peripheral Vein, Percutaneous Approach (ICD-10-PCS; 2017-01-01)
DX: K25.2 Acute gastric ulcer with both hemorrhage and perforation (principal); A41.9 Sepsis, unspecified organism; R65.21 Severe sepsis with septic shock; J18.9 Pneumonia, unspecified organism; J96.00 Acute respiratory failure, unspecified whether with hypoxia or hypercapnia; K56.5 Intestinal adhesions [bands] with obstruction (postinfection); Z88.2 Allergy status to sulfonamides; E11.9 Type 2 diabetes mellitus without complications; E87.6 Hypokalemia; E83.42 Hypomagnesemia; G89.29 Other chronic pain; M54.9 Dorsalgia, unspecified; E78.00 Pure hypercholesterolemia, unspecified; E03.9 Hypothyroidism, unspecified; M19.90 Unspecified osteoarthritis, unspecified site; Z79.899 Other long term (current) drug therapy; Z90.710 Acquired absence of both cervix and uterus; Z85.43 Personal history of malignant neoplasm of ovary; D64.9 Anemia, unspecified; Z88.5 Allergy status to narcotic agent; Z88.8 Allergy status to other drugs, medicaments and biological substances
CPT/HCPCS: 00790; 36415; 36430; 71010; 71035; 74177; 74250; 80048; 80053; 80069; 81001; 82271; 82803; 82962; 83605; 83735; 84100; 85025; 86850; 86900; 86901; 86920; 87040; 87493; 88307; 94002; 94003; 94799; 96361; 96365; 96375; 99291; C1751; G8978-GP; G8979-GP; G8987-GO; G8988-GO; J0330; J0743; J1170; J1335; J1650; J1940; J2060; J2250; J2270; J2370; J2405; J2704; J3010; J3370; J3475; J3480; J3490; J7030; J7040; J7060; P9016; S0028; S0164

== ENCOUNTER 2017-01-10 03:03 | Inpatient (IN) | payer MEDICARE, BC ==
[2017-01-10 03:32] LABS: ABSOLUTE EOSINOPHILS # (AUTO) 0.1 10^3/uL (0.0-0.6); ABSOLUTE LYMPHOCYTES (AUTO) 0.9 10^3/uL (0.5-4.7); ABSOLUTE MONOCYTES (AUTO) 0.3 10^3/uL (0.1-1.4); ABSOLUTE NEUT (AUTO) 3.8 10^3/uL (1.7-8.2); BASOPHILS % (AUTO) 0.4 % (0-2); EOSINOPHILS % (AUTO) 1.5 % (0-6); HEMATOCRIT 26.8 % (36.0-47.0); HEMOGLOBIN 9.2 g/dL (12.0-15.5); HGB HCT DIFFERENCE 0.8; LYMPHOCYTES % (AUTO) 17.6 % (13-45); MEAN CORPUSCULAR HEMOGLOBIN 31.2 pg (27.0-33.4); MEAN CORPUSCULAR HGB CONC 34.5 g/dL (32.0-36.0); MEAN CORPUSCULAR VOLUME 91 fl (80-97); MONOCYTES % (AUTO) 5.4 % (3-13); RED BLOOD COUNT 2.96 10^6/uL (3.72-5.28); RED CELL DISTRIBUTION WIDTH 14.8 % (11.5-14.0); SEGMENTED NEUTROPHILS % (AUTO) 75.1 % (42-78); WHITE BLOOD COUNT 5.1 10^3/uL (4.0-10.5)
--- NOTE | 2017-01-10 03:34 | ER Document Report ---
ED General - General Chief Complaint: Rectal Bleeding Stated Complaint: RECTAL BLEEDING TRAVEL OUTSIDE OF THE [place] IN LAST 30 DAYS: No - HPI Notes: Patient is a 76yo female who presents to the ED c/o rectal bleeding s/p gastric perforation repair secondary to ulcer and small bowel resection secondary to obstruction on 12/29/2016. Pt states that she did have some blood in her stool soon after the surgery which she was told was normal, but the [facility] noticed a lot more blood than usual in her stool about 1.5 hours ago and wanted her eval'd in the ED. Pt states that otherwise she is feeling well and denies any pain or fever. Dr. Logan performed her surgery 12 days ago. Pt is accompanied by her daughter and sister. Denies any headache, fever, URI, sore throat, chest pain, palpitations, syncope, cough, shortness of breath, wheeze, dyspnea, abdominal pain, nausea/vomiting/diarrhea, urinary retention, dysuria, hematuria, or rash. - Related Data Allergies/Adverse Reactions: Sulfa (Sulfonamide Antibiotics) Allergy (Unknown, Verified 05/25/11 11:16) rash oxycodone HCl [From Percocet] Adverse Reaction (Verified 03/12/14 14:09) Hallucinations Past Medical History - Social History Smoking Status: Unknown if Ever Smoked Family History: Reviewed & Not Pertinent - Past Medical History Cardiac Medical History: Reports: Hx Hypercholesterolemia Denies: Hx Coronary Artery Disease, Hx Heart Attack, Hx Hypertension Pulmonary Medical History: Denies: Hx Asthma, Hx Bronchitis, Hx COPD, Hx Pneumonia Neurological Medical History: Denies: Hx Cerebrovascular Accident, Hx Seizures Endocrine Medical History: Reports: Hx Diabetes Mellitus Type 2 Renal/ Medical History: Denies: Hx Peritoneal Dialysis Musculoskeltal Medical History: Reports Hx Arthritis Psychiatric Medical History: Denies: Hx Depression Past Surgical History: Reports: Hx Abdominal Surgery, Hx Hysterectomy. Denies: Hx Pacemaker - Immunizations Hx Diphtheria, Pertussis, Tetanus Vaccination: No Hx Pneumococcal Vaccination: 05/21/15 Review of Systems - Review of Systems Notes: REVIEW OF SYSTEMS: CONSTITUTIONAL : Denies fever, chills, or sweats. Denies recent illness. EENT: Denies eye, ear, throat, or mouth pain or symptoms. Denies nasal or sinus congestion or discharge. Denies throat, tongue, or mouth swelling or difficulty swallowing. CARDIOVASCULAR: Denies chest pain. Denies palpitations or racing or irregular heart beat. Denies ankle edema. RESPIRATORY: Denies cough, cold, or chest congestion. Denies shortness of breath, difficulty breathing, or wheezing. GASTROINTESTINAL: see hpi GENITOURINARY: Denies difficulty urinating, painful urination, burning, frequency, blood in urine, or discharge. MUSCULOSKELETAL: Denies back or neck pain or stiffness. Denies joint pain or swelling. SKIN: Denies rash, lesions or sores. NEUROLOGICAL: Denies confusion or altered mental status. Denies passing out or loss of consciousness. Denies dizziness or lightheadedness. Denies headache. Denies weakness or paralysis or loss of use of either side. Denies problems with gait or speech. Denies sensory loss, numbness, or tingling. ALL OTHER SYSTEMS REVIEWED AND NEGATIVE. Dictation was performed using [employer] voice recognition software Physical Exam - Vital signs Vitals: Resp 30 H 01/10/17 03:11 Notes: PHYSICAL EXAMINATION: GENERAL: Well-appearing, well-nourished and in no acute distress. HEAD: Atraumatic, normocephalic. EYES: Pupils equal round and reactive to light, extraocular movements intact, sclera anicteric, conjunctiva are normal. No pallor. ENT: Nares patent and without discharge. oropharynx clear without exudates. No tonsilar hypertrophy or erythema. Moist mucous membranes. NECK: Normal range of motion, supple without lymphadenopathy. LUNGS: Breath sounds clear to auscultation bilaterally and equal. No wheezes rales or rhonchi. HEART: Regular rate and rhythm without murmurs, rubs, gallops. ABDOMEN: Soft, nontender, nondistended abdomen. No guarding, no rebound. No masses appreciated. Normal bowel sounds present. No CVA tenderness bilaterally. Rectal: Jaun blood on exam. Musculoskeletal: Ext b/l: FROM to passive/active. Strength 5+/5. Extremities: No cyanosis, clubbing, or edema b/l. Peripheral pulses 2+. Capillary refill less than 3 seconds. NEUROLOGICAL: MMSE intact. Cranial nerves grossly intact. Normal speech. Normal sensory, motor exams PSYCH: Normal mood, normal affect. SKIN: Warm, Dry, normal turgor, no rashes or lesions noted. Course - Re-evaluation Re-evalutation: 01/10/17 05:[address] Aldana who is in agreement with plan: Patient is an afebrile, well-hydrated, 76-year-old female who presents to the ED with GI bleed, suspicion for upper GI bleed based on H&P. Patient is currently asymptomatic. Vitals appear to be stable at this time. Patient appears to be hemodynamically stable as well. Refer to lab results. Protonix 80mg IV bolus followed by Protonix drip started. Reviewed case with Dr. Logan who recommended transfer for endoscopy and colonoscopy. Called [facility] for transfer and was accepted by Dr. Schaeffer. 01/10/17 06:36 We discovered that we will have GI director workers compensation this morning. Dr. Logan called the GI director workers compensation who will see and perform the scopes on the patient this morning. Dr. Logan directed to have admit under his care and GI will consult. Family/pt are in agreement with plan. - Vital Signs Vital signs: Temp Pulse Resp BP Pulse Ox 97.9 F 20 104/48 L 94 01/10/17 03:33 01/10/17 06:01 01/10/17 06:01 01/10/17 06:01 - Laboratory Result Diagrams: 01/10/17 03:00 01/10/17 03:00 Laboratory results interpreted by me: 01/10/17 01/10/17 03:00 03:00 RBC 2.96 L Hgb 9.2 L Hct 26.8 L RDW 14.8 H Glucose 115 H Total Protein 5.5 L Albumin 3.1 L Discharge - Discharge Clinical Impression: GI bleed Qualifiers: GI bleed type/associated pathology: unspecified gastrointestinal hemorrhage type Qualified Code(s): K92.2 - Gastrointestinal hemorrhage, unspecified Condition: Stable Disposition: ADMITTED INPATIENT Admitting Provider: Surgicalist - Dr. Logan Unit Admitted: Surgical Floor Referrals: BELÉN MIN MD [Primary Care Provider] - Follow up as needed
[2017-01-10 03:49] LABS: ALANINE AMINOTRANSFERASE 22 U/L (9-52); ALBUMIN 3.1 g/dL (3.5-5.0); ALKALINE PHOSPHATASE 74 U/L (38-126); ANION GAP 9 (5-19); ASPARTATE AMINO TRANSFERASE 16 U/L (14-36); BILIRUBIN,DIRECT 0.3 mg/dL (0.0-0.4); BILIRUBIN,TOTAL 0.4 mg/dL (0.2-1.3); BLOOD UREA NITROGEN 20 mg/dL (7-20); CALCIUM 9.1 mg/dL (8.4-10.2); CARBON DIOXIDE 27 mmol/L (22-30); CHLORIDE 102 mmol/L (98-107); CREATININE RESULT 0.75 mg/dL (0.52-1.25); GLUCOSE 115 mg/dL (75-110); POTASSIUM 4.2 mmol/L (3.6-5.0); SODIUM 138.3 mmol/L (137-145); TOTAL PROTEIN 5.5 g/dL (6.3-8.2)
--- NOTE | 2017-01-10 04:22 | RADIOLOGY REPORT (SQ) ---
EXAM DESCRIPTION: ACUTE ABDOMEN SERIES COMPLETED DATE/TIME: 01/10/2017 4:02 am REASON FOR STUDY: rectal bleeding, h/o gastric ulcer perforation COMPARISON: 01/03/2017. NUMBER OF VIEWS: Three views. TECHNIQUE: Frontal chest, supine abdomen and upright/decubitus abdomen radiographic images acquired. LIMITATIONS: None. FINDINGS: CHEST: Lungs clear of infiltrates. Mild interstitial markings, chronic. FREE AIR: None. No abnormal gas collections. BOWEL GAS PATTERN: Nonobstructive pattern. No dilated loops or air fluid levels. CALCIFICATIONS: No suspicious calcifications. HARDWARE: Extensive abdominal clips. SOFT TISSUES: No gross mass or suggestion of organomegaly. BONES: No acute fracture. No worrisome bone lesions. OTHER: No other significant finding. IMPRESSION: No acute findings. TECHNICAL DOCUMENTATION: JOB ID: [id number] [employer]- All Rights Reserved
[2017-01-10] MEDS ORDERED: PANTOPRAZOLE SODIUM 40 MG VIAL IV ONE ×2 (04:34→04:40)
[2017-01-10] MEDS ORDERED: PANTOPRAZOLE SODIUM 40 MG VIAL IV PRN (04:40)
[2017-01-10] MEDS ORDERED: NORMAL SALINE 1000 ML 1,000 ML IV ONE (06:19)
[2017-01-10 06:37] LABS: PARTIAL THROMBOPLASTIN TIME 28.1 SEC (23.5-35.8); PROTHROMBIN TIME 13.7 SEC (11.4-15.4)
[2017-01-10] MEDS ORDERED: DEXTROSE 40% GEL 15 GM TUBE PO PRN ×2 (07:17)
[2017-01-10] MEDS ORDERED: GLUCAGON,HUMAN RECOMB 1 MG INJ SUBCUT PRN (07:17)
[2017-01-10] MEDS ORDERED: DEXTROSE 50%-WATER 25 GM/50 ML DISP.SYRIN IV PRN ×2 (07:17)
--- NOTE | 2017-01-10 07:56 | PDOC H&P ---
History of Present Illness Admission Date/PCP: 01/10/17 06:51 BELÉN MIN MD Patient complains of: noted blood on the toilet by [facility] personnel History of Present Illness: VINOD MCCARTHY is a 76 year old female who was discharged yesterday from the hospital to the [facility] at [place]. This morning noted to have blood in the stool and patient subsequently sent to the emergency room. Patient is asymptomatic. Patient is about 12 days post repair of perforated gastric ulcer and extensive enterolysis with small bowel resection. A rectal exam done by emergency room JAI gonzalez revealed darío dark blood. Patient's hemoglobin in the emergency room was 9.2. Patient's hemoglobin while in the hospital on was 9.5. Past Medical History Past Medical History: Past medical history Cardiac Medical History: Reports: Hyperlipidema Denies: Coronary Artery Disease, Myocardial Infarction, Hypertension Pulmonary Medical History: Denies: Asthma, Bronchitis, Chronic Obstructive Pulmonary Disease (COPD), Pneumonia Neurological Medical History: Denies: Seizures Endocrine Medical History: Reports: Diabetes Mellitus Type 2 Malignancy Medical History: Reports: Ovarian Cancer - Patient had a total hysterectomy and chemo for ovarian cancer in 2007. GI Medical History: Reports: Peptic Ulcer Disease Musculoskeltal Medical History: Reports: Arthritis Psychiatric Medical History: Denies: Depression Hematology: Reports: Anemia - yrs ago Past Surgical History Past Surgical History: Patient had a hysterectomy for ovarian cancer in 2007. Also had chemotherapy afterwards. Past Surgical History: Reports: Hysterectomy Denies: Pacemaker Social History Smoking Status: Unknown if Ever Smoked Frequency of Alcohol Use: None Hx Recreational Drug Use: No Hx Prescription Drug Abuse: No Family History Family History: Reviewed & Not Pertinent Parental Family History Reviewed: Yes Children Family History Reviewed: Yes Sibling(s) Family History Reviewed.: Yes Medication/Allergy Home Medications: Cetirizine HCl [Zyrtec 10 mg Tablet] 10 mg PO DAILY 12/29/16 Gabapentin [Neurontin 300 mg Capsule] 300 mg PO Q8HP PRN 12/29/16 Hydrocodone/Acetaminophen [[place] 10-325 mg Tablet] 0.5 tab PO Q8HP PRN 12/29/16 Levothyroxine Sodium [Levo-T] 50 mcg PO DAILY 12/29/16 Meloxicam [Mobic] 15 mg PO DAILY 12/29/16 Winn[place]-3 Fatty Acids/Fish Oil [Theragran-M 1,200 mg Softgel] 1 cap PO DAILY 12/29 Ranitidine HCl [Zantac] 300 mg PO DAILY 12/29/16 Rosuvastatin Calcium [Crestor 20 mg Tablet] 20 mg PO QHS 12/29/16 Valsartan [Diovan 80 mg Tablet] 80 mg PO QPM 12/29/16 Allergies/Adverse Reactions: Sulfa (Sulfonamide Antibiotics) Allergy (Unknown, Verified 05/25/11 11:16) rash oxycodone HCl [From Percocet] Adverse Reaction (Verified 03/12/14 14:09) Hallucinations Review of Systems All systems: reviewed and no additional remarkable complaints except as stated - Denies any dizziness or weakness. She is ambulatory. Denies any visual problem. No chills or fever. Denies abdominal pains. Has some difficulty hearing . Denies shortness of breath or chest pains. Physical Exam Vital Signs: Temp Pulse Resp BP Pulse Ox 97.9 F 20 104/48 L 94 01/10/17 03:33 01/10/17 06:01 01/10/17 06:01 01/10/17 06:01 Exam: Patient is alert and oriented in no apparent acute distress. Eyes PERRLA. Ears decreased hearing. Neck no adenopathy. Lungs clear to auscultation. Heart regular sinus rhythm. Abdomen is soft nontender. Abdominal incision is clean and dry alternate alma delia were removed yesterday. Extremities no edema. Results Laboratory Results: Her hemoglobin is 9.2 hematocrit is 27. His hemoglobin while in the hospital on 01/07/2017 was 9.5. Impressions: Acute Abdomen Series 01/10/17 03:32 IMPRESSION: No acute findings. Assessment & Plan - Diagnosis (1) GI bleed Qualifiers: GI bleed type/associated pathology: unspecified gastrointestinal hemorrhage type Qualified Code(s): K92.2 - Gastrointestinal hemorrhage, unspecified (2) Anemia Qualifiers: Anemia type: unspecified type Qualified Code(s): D64.9 - Anemia, unspecified Is this a current diagnosis for this admission?: Yes (3) Diarrhea Qualifiers: Diarrhea type: unspecified type Qualified Code(s): R19.7 - Diarrhea, unspecified - Time Time Spent: 50 to 70 Minutes - Evaluation of patient, discussion with patient and family, discussion with the ER PA, several calls to GI. - Inpatient Certification I certify that my determination is in accordance with my understanding of Medicare's requirements for reasonable and necessary INPATIENT services [42 CFR 412.3e].: Yes Medical Necessity: Risk of Diagnosis Which Will Require Inpatient Eval/Care/ Monitoring - Needs endoscopy procedures and close monitoring with serial H&H and checking coagulation - Plan Summary Plan Summary: #1 admit for close monitoring of vital signs 2 possible upper and lower endoscopy care of Dr. Bajwa Serial evaluation of abdomen. 3 may need blood transfusion and the hemoglobin further goes down.
[2017-01-10] MEDS ORDERED: ONDANSETRON HCL INJ/PF 4 MG/2 ML SDV ONE ×2 (10:51→10:52)
[2017-01-10] MEDS ORDERED: DIPHENHYDRAMINE HCL 50 MG/ML VIAL ONE (10:51)
[2017-01-10] MEDS ORDERED: NALOXONE HCL INJ/PF 0.4 MG/1 ML SDV ONE (10:52)
[2017-01-10] MEDS ORDERED: GLUCAGON,HUMAN RECOMB 1 MG INJ ONE (10:53)
[2017-01-10] MEDS ORDERED: FLUMAZENIL INJ 0.5 MG/5 ML VIAL ONE (10:53)
[2017-01-10] MEDS ORDERED: EPINEPHRINE INJ 1 MG/10 ML DISP.SYRIN ONE (10:53)
[2017-01-10] MEDS ORDERED: FENTANYL CITRATE INJ/PF 100 MCG/2 ML AMPUL ONE (10:53)
[2017-01-10 11:04] LABS: PROTHROMBIN TIME 13.8 SEC (11.4-15.4)
[2017-01-10] MEDS: MIDAZOLAM 2 MG/2 ML INJ ONE ×2 (11:55→12:05)
--- NOTE | 2017-01-10 12:43 | Operative Report ---
Operative Report DATE OF SURGERY: 01/10/17 Operative Report: The risks benefits and alternatives of the procedure explained to the patient in detail and informed consent is obtained.A GIF Olympus video scope was inserted into the patient's mouth and hypopharynx, the esophagus is identified intubated and insufflated, the scope was then advanced through the esophagus stomach and duodenum, retroflexion maneuver is done ,the esophagus stomach and first and second portions of the duodenum examined PREOPERATIVE DIAGNOSIS: Possible upper GI bleed, melena POSTOPERATIVE DIAGNOSIS: History of previous perforated ulcer recently repaired with surgery. Clean base ulcer noted at the gastric outlet. No active bleeding is noted. No signs of coffee grounds, or old heme noted in the upper GI tract. Gastritis is noted. Biopsy obtained to rule out Helicobacter pylori. We will need colonoscopy to find out possible cause of bleeding. Less likely to be upper GI source as BUN/creatinine ratio is normal. OPERATION: EGD with biopsy SURGEON: LUIS KNUTSON ANESTHESIA: Moderate Sedation - 3 mg of Versed. Conscious sedation monitoring time 30 minutes. TISSUE REMOVED OR ALTERED: Small biopsy obtained to rule out Helicobacter pylori COMPLICATIONS: None. ESTIMATED BLOOD LOSS: None. INTRAOPERATIVE FINDINGS: As described above. PROCEDURE: Patient tolerated procedure well. Patient sent back to her room in good condition. We will need colonoscopy tomorrow and orders are written. Clear liquids today. Family was updated. Attending surgeon was updated. We will await biopsies. Transfuse if necessary.
[2017-01-10] MEDS ORDERED: INSULIN LISPRO 100 UNIT/ML 3 ML VIAL SUBCUT PRN (15:38)
[2017-01-10] MEDS: HYDROCODONE/ACETAMINOPHEN 10-325 MG TABLET PO PRN (16:17)
[2017-01-10] MEDS ORDERED: PEG 3350/NA SULF,BICARB,CL/KCL 4000 ML PO ONE (18:00)
[2017-01-10] MEDS: VALSARTAN 80 MG TABLET PO SCH (18:31)
[2017-01-10] MEDS: ATORVASTATIN CALCIUM 40 MG TABLET PO SCH (21:20)
[2017-01-10] MEDS: GABAPENTIN 300 MG CAPSULE PO PRN (21:21)
[2017-01-10] MEDS: FAMOTIDINE 20 MG TABLET PO SCH (21:21)
[2017-01-10] MEDS ORDERED: (PENDING PHARMACY ID) (Rosuvastatin Calcium [Crestor 20 Mg Tablet] 20 MG) PO SCH (22:00)
[2017-01-11] MEDS: NORMAL SALINE 100 ML with PANTOPRAZOLE SODIUM 80 MG IV PRN ×4 (03:17→19:29)
[2017-01-11] MEDS: HYDROCODONE/ACETAMINOPHEN 10-325 MG TABLET PO PRN ×2 (04:25→19:39)
[2017-01-11 05:00] LABS: ABSOLUTE EOSINOPHILS # (AUTO) 0.1 10^3/uL (0.0-0.6); ABSOLUTE LYMPHOCYTES (AUTO) 0.7 10^3/uL (0.5-4.7); ABSOLUTE MONOCYTES (AUTO) 0.3 10^3/uL (0.1-1.4)
[2017-01-11 05:11] LABS: HEMATOCRIT 20.3 % (36.0-47.0); HGB HCT DIFFERENCE 1.3; LYMPHOCYTES % (AUTO) 17.6 % (13-45); MEAN CORPUSCULAR HEMOGLOBIN 32.5 pg (27.0-33.4); MEAN CORPUSCULAR HGB CONC 35.6 g/dL (32.0-36.0); MEAN CORPUSCULAR VOLUME 91 fl (80-97); MONOCYTES % (AUTO) 6.9 % (3-13); RED BLOOD COUNT 2.22 10^6/uL (3.72-5.28); RED CELL DISTRIBUTION WIDTH 15.3 % (11.5-14.0); SEGMENTED NEUTROPHILS % (AUTO) 72.6 % (42-78); WHITE BLOOD COUNT 3.8 10^3/uL (4.0-10.5)
[2017-01-11 05:12] LABS: ABSOLUTE NEUT (AUTO) 2.8 10^3/uL (1.7-8.2); BASOPHILS % (AUTO) 0.7 % (0-2); EOSINOPHILS % (AUTO) 2.2 % (0-6)
[2017-01-11 05:13] LABS: HEMOGLOBIN 7.2 g/dL (12.0-15.5)
[2017-01-11 05:16] LABS: ANION GAP 6 (5-19); BLOOD UREA NITROGEN 10 mg/dL (7-20); CALCIUM 8.2 mg/dL (8.4-10.2); CARBON DIOXIDE 27 mmol/L (22-30); CHLORIDE 107 mmol/L (98-107); CREATININE RESULT 0.63 mg/dL (0.52-1.25); GLUCOSE 97 mg/dL (75-110); POTASSIUM 4.4 mmol/L (3.6-5.0); SODIUM 139.9 mmol/L (137-145)
[2017-01-11] MEDS ORDERED: FUROSEMIDE INJ/PF 20 MG/2 ML SDV IV PRN (05:29)
[2017-01-11] MEDS ORDERED: ACETAMINOPHEN 325 MG TABLET PO ONE (05:45)
--- NOTE | 2017-01-11 09:04 | PDOC PROGRESS REPORT ---
Subjective Progress Note for:: 01/11/17 Subjective:: Feels well. Did not have any blood per rectum with the bowel prep. No complaints. Physical Exam Vital Signs: Temp Pulse Resp BP Pulse Ox 98.5 F 89 17 101/42 L 99 01/11/17 08:12 01/11/17 08:12 01/11/17 08:12 01/11/17 08:12 01/11/17 08:12 Intake & Output 01/10/17 01/11/17 01/12/17 06:59 06:59 06:59 Intake Total 4075 Output Total 4 Balance 4071 Weight 69.6 kg General appearance: PRESENT: no acute distress, cooperative Respiratory exam: PRESENT: clear to auscultation jose luis Cardiovascular exam: PRESENT: RRR GI/Abdominal exam: PRESENT: other - Soft, nondistended, nontender to palpation. Wound clean dry and intact. Some of the alma delia still in place. Results Laboratory Results: 01/11/17 04:04 01/11/17 04:04 01/11/17 01/11/17 04:04 04:04 WBC 3.8 L RBC 2.22 L Hgb 7.2 L Hct 20.3 L MCV 91 MCH 32.5 MCHC 35.6 RDW 15.3 H Plt Count 249 Seg Neutrophils % 72.6 Lymphocytes % 17.6 Monocytes % 6.9 Eosinophils % 2.2 Basophils % 0.7 Absolute Neutrophils 2.8 Absolute Lymphocytes 0.7 Absolute Monocytes 0.3 Absolute Eosinophils 0.1 Absolute Basophils 0.0 Sodium 139.9 Potassium 4.4 Chloride 107 Carbon Dioxide 27 Anion Gap 6 BUN 10 Creatinine 0.63 Est GFR ( Amer) > 60 Est GFR (Non-Af Amer) > 60 Glucose 97 Calcium 8.2 L Impressions: Acute Abdomen Series 01/10/17 03:32 IMPRESSION: No acute findings. Assessment & Plan - Diagnosis (1) GI bleed Qualifiers: GI bleed type/associated pathology: unspecified gastrointestinal hemorrhage type Qualified Code(s): K92.2 - Gastrointestinal hemorrhage, unspecified Is this a current diagnosis for this admission?: Yes Plan: Of unclear etiology. Probably not actively bleeding at this time. EGD demonstrated no evidence of recent upper GI bleed. Pending colonoscopy today. Patient's decreased hematocrit from yesterday most likely due to equilibration and hemodilution. She is currently receiving blood transfusion. Remove the remainder of her wound alma delia.
[2017-01-11] MEDS ORDERED: FATTY ACIDS PO SCH (10:00)
[2017-01-11] MEDS ORDERED: (PENDING PHARMACY ID) (Ranitidine Hcl [Zantac] 300 MG) PO SCH (10:00)
[2017-01-11] MEDS ORDERED: [UNRECOGNIZED DRUG - OTHER] PO SCH (10:00)
[2017-01-11] MEDS ORDERED: OMEGA PO SCH (10:00)
[2017-01-11] MEDS ORDERED: FISH OIL PO SCH (10:00)
[2017-01-11] MEDS ORDERED: DIPHENHYDRAMINE HCL 50 MG/ML VIAL ONE (12:53)
[2017-01-11] MEDS ORDERED: ONDANSETRON HCL INJ/PF 4 MG/2 ML SDV ONE (12:53)
[2017-01-11] MEDS ORDERED: NALOXONE HCL INJ/PF 0.4 MG/1 ML SDV ONE (12:53)
[2017-01-11] MEDS ORDERED: MIDAZOLAM 2 MG/2 ML INJ ONE ×2 (12:54)
[2017-01-11] MEDS ORDERED: FENTANYL CITRATE INJ/PF 100 MCG/2 ML AMPUL ONE (12:55)
[2017-01-11] MEDS ORDERED: GLUCAGON,HUMAN RECOMB 1 MG INJ ONE (12:55)
[2017-01-11] MEDS ORDERED: FLUMAZENIL INJ 0.5 MG/5 ML VIAL ONE (12:55)
[2017-01-11] MEDS ORDERED: EPINEPHRINE INJ 1 MG/10 ML DISP.SYRIN ONE (12:55)
[2017-01-11] MEDS: MIDAZOLAM 2 MG/2 ML INJ ONE (13:35)
--- NOTE | 2017-01-11 13:52 | Operative Report ---
Operative Report DATE OF SURGERY: 01/11/17 Operative Report: The risks, benefits and alternatives of the procedure including risks of bleeding, perforation requiring surgery are explained to the patient in detail and informed consent was obtained. Patient was taken back to the endoscopy suite and placed in the left, lateral decubital position. Timeout was called. Conscious sedation medications are provided. A rectal examination was done which did not reveal any masses, tears or fissures. An Olympus videoscope was inserted into the patient's rectum. The scope was then carefully advanced all the way to the cecum. Cecum was identified by the usual anatomical landmarks including the ileocecal valve as well as appendiceal office. Photodocumentation is obtained. Scope was then sequentially pulled back via the various segments of the colon including the ascending colon, hepatic flexure , transverse colon, splenic flexure, descending colon went to the rectosigmoid portions of the colon. Retroflexion maneuvers performed. PREOPERATIVE DIAGNOSIS: Possible GI bleed, dark blood per rectum POSTOPERATIVE DIAGNOSIS: Internal hemorrhoids. Diverticulosis OPERATION: Colonoscopy with biopsy SURGEON: LUIS KNUTSON ANESTHESIA: Moderate Sedation - 3 mg of Versed. 25 mcg of fentanyl conscious sedation monitoring time 30 minutes. TISSUE REMOVED OR ALTERED: Small biopsy obtained COMPLICATIONS: None. ESTIMATED BLOOD LOSS: None. INTRAOPERATIVE FINDINGS: As described above. PROCEDURE: Patient tolerated procedure well. No immediate postprocedure complications are noted. Patient sent back to her room in good condition. Resume regular diet Resume previous activity level Follow-up as outpatient If hemoglobin stable and no further bleeding likely can be discharged
[2017-01-11] MEDS: LEVOTHYROXINE SODIUM 0.05 MG TABLET PO SCH (14:44)
[2017-01-11] MEDS: FAMOTIDINE 20 MG TABLET PO SCH ×2 (14:44→21:26)
[2017-01-11] MEDS: OMEGA-3 ACID ETHYL ESTERS 1 GM CAPSULE PO SCH (14:44)
[2017-01-11] MEDS: CETIRIZINE 10 MG TABLET PO SCH (14:45)
[2017-01-11] MEDS: MELOXICAM 15 MG TABLET PO SCH (14:58)
[2017-01-11] MEDS: VALSARTAN 80 MG TABLET PO SCH (19:30)
[2017-01-11] MEDS: GABAPENTIN 300 MG CAPSULE PO PRN (19:39)
[2017-01-11] MEDS: NORMAL SALINE 1000 ML 1,000 ML IV PRN (21:26)
[2017-01-11] MEDS: ATORVASTATIN CALCIUM 40 MG TABLET PO SCH (21:26)
[2017-01-12] MEDS ORDERED: PANTOPRAZOLE SODIUM 40 MG VIAL IV ONE (06:26)
[2017-01-12] MEDS: NORMAL SALINE 100 ML with PANTOPRAZOLE SODIUM 80 MG IV PRN ×2 (08:03)
[2017-01-12] MEDS: NORMAL SALINE 1000 ML 1,000 ML IV PRN (08:04)
[2017-01-12] MEDS: GABAPENTIN 300 MG CAPSULE PO PRN (08:12)
[2017-01-12] MEDS: HYDROCODONE/ACETAMINOPHEN 10-325 MG TABLET PO PRN (08:12)
[2017-01-12 09:47] LABS: ABSOLUTE EOSINOPHILS # (AUTO) 0.1 10^3/uL (0.0-0.6); ABSOLUTE LYMPHOCYTES (AUTO) 0.5 10^3/uL (0.5-4.7); ABSOLUTE MONOCYTES (AUTO) 0.2 10^3/uL (0.1-1.4); ABSOLUTE NEUT (AUTO) 2.4 10^3/uL (1.7-8.2); BASOPHILS % (AUTO) 0.4 % (0-2); EOSINOPHILS % (AUTO) 2.3 % (0-6); HEMATOCRIT 28.7 % (36.0-47.0); HGB HCT DIFFERENCE 1.6; LYMPHOCYTES % (AUTO) 15.5 % (13-45); MEAN CORPUSCULAR HEMOGLOBIN 30.8 pg (27.0-33.4); MEAN CORPUSCULAR HGB CONC 35.1 g/dL (32.0-36.0); MEAN CORPUSCULAR VOLUME 88 fl (80-97); RED BLOOD COUNT 3.26 10^6/uL (3.72-5.28); RED CELL DISTRIBUTION WIDTH 15.5 % (11.5-14.0); SEGMENTED NEUTROPHILS % (AUTO) 74.8 % (42-78); WHITE BLOOD COUNT 3.3 10^3/uL (4.0-10.5)
[2017-01-12 09:50] LABS: HEMOGLOBIN 10.1 g/dL (12.0-15.5)
--- NOTE | 2017-01-12 10:47 | DISCHARGE SUMMARY E ---
Discharge Summary NAME: VINOD MCCARTHY : 1940 AGE: 76Y ADMITTED: 01/10/2017 DISCHARGED: 01/12/2017 HOSPITAL COURSE: The patient was readmitted for a GI bleed. Patient had a previous repair of perforated gastric ulcer and extensive enterolysis about 14 days ago. Patient was discharged on 01/09/17 only to come back the next day on 01/10/17 with GI bleed. She had an upper endoscopy on 01/10/17 which showed no evidence of bleeding at the stomach site though had some gastritis. At this time, patient had a repeat hemoglobin which showed 9.2 to 7.2. She was then transfused 2 units of packed cells. On 01/11/17, she underwent colonoscopy which showed no evidence of acute bleeding but had some diverticulosis. Her bleeding was likely from a diverticular bleed. When seen this morning she feels good and denies any pains or tenderness in her abdomen. A repeat H and H was done but still pending. At any rate if the H and H is about 8, she could probably be discharged today with bleeding likely from a diverticulosis site. DICTATING PHYSICIAN: MELQUIADES BAUMAN M.D. [id number] PHY#: [id number] ID: [id number] JOB#: [id number] ACCT: [id number] cc:MELQUIADES BAUMAN M.D., E. R. >
[2017-01-12] MEDS: OMEGA-3 ACID ETHYL ESTERS 1 GM CAPSULE PO SCH (10:53)
[2017-01-12] MEDS: FAMOTIDINE 20 MG TABLET PO SCH (10:53)
[2017-01-12] MEDS: LEVOTHYROXINE SODIUM 0.05 MG TABLET PO SCH (10:54)
[2017-01-12] MEDS: CETIRIZINE 10 MG TABLET PO SCH (10:54)
[2017-01-12] MEDS: MELOXICAM 15 MG TABLET PO SCH (10:55)
[2017-01-12 17:18] VITALS: BP 109/45
== END 2017-01-12 17:38 | DRG 379 ==
LOC: ER 03:03 → UNDOADMIN 06:51 → EH 06:51 → 4S 09:58
PROVIDERS: ATTEND Internal Medicine Gastroenterology
PROC: 0DB68ZX Excision of Stomach, Via Natural or Artificial Opening Endoscopic, Diagnostic (ICD-10-PCS; 2017-01-10)
PROC: 30233N1 Transfusion of Nonautologous Red Blood Cells into Peripheral Vein, Percutaneous Approach (ICD-10-PCS; 2017-01-11)
PROC: 0DBE8ZX Excision of Large Intestine, Via Natural or Artificial Opening Endoscopic, Diagnostic (ICD-10-PCS; principal; 2017-01-11 13:30)
DX: K92.2 Gastrointestinal hemorrhage, unspecified (principal); D64.9 Anemia, unspecified; R19.7 Diarrhea, unspecified; K57.30 Diverticulosis of large intestine without perforation or abscess without bleeding; E78.5 Hyperlipidemia, unspecified; E11.9 Type 2 diabetes mellitus without complications; K64.8 Other hemorrhoids; M19.90 Unspecified osteoarthritis, unspecified site; Z79.899 Other long term (current) drug therapy; Z85.43 Personal history of malignant neoplasm of ovary; Z90.710 Acquired absence of both cervix and uterus; Z87.11 Personal history of peptic ulcer disease; Z88.2 Allergy status to sulfonamides; Z88.8 Allergy status to other drugs, medicaments and biological substances
CPT/HCPCS: 36415; 36430; 43239; 45378; 74022; 80048; 80053; 82272; 82962; 85025; 85610; 85730; 86850; 86900; 86901; 86920; 88305; 96374; 99285; J0171; J1200; J1610; J1940; J2250; J2310; J2405; J3010; J3490; J7030; P9016; S0164

== ENCOUNTER 2017-04-27 10:22 | Inpatient (IN) | payer MEDICARE, BC ==
[2017-04-27] MEDS ORDERED: FENTANYL CITRATE INJ/PF 100 MCG/2 ML AMPUL IV ONE (11:05)
--- NOTE | 2017-04-27 11:05 | ER Document Report ---
ED Fall - General Stated Complaint: FALL RIGHT HIP PAIN Time Seen by Provider: 04/27/17 10:42 Notes: Patient fall yesterday onto the right hip. Was able to stand at that time but getting worse today. Unable to bear weight. Denies any other injuries at this time. TRAVEL OUTSIDE OF THE [place] IN LAST 30 DAYS: No - HPI Occurred: Yesterday Where: Home - Related data Allergies/Adverse Reactions: Sulfa (Sulfonamide Antibiotics) Allergy (Unknown, Verified 02/20/17 08:22) rash oxycodone HCl [From Percocet] Adverse Reaction (Intermediate, Verified 02/20/17 08:22) Hallucinations Home Medications: Current Home Medications Fluticasone Propionate [Flonase Nasal [place] 50 Mcg/[place] 16 gm] 1 spray NASL BID 04/27/17 [History] Gabapentin [Neurontin 300 mg Capsule] 300 mg PO Q8HP PRN 04/27/17 [History] Hydrocodone/Acetaminophen [[place] 10-325 mg Tablet] 0.5 tab PO Q8HP PRN 04/27/17 [History] Lansoprazole [Prevacid 30 mg Odt Tablet] 30 mg PO BID 04/27/17 [History] Levothyroxine Sodium [Synthroid 0.05 mg Tablet] 0.05 mg PO Q6AM 04/27/17 [ History] Rosuvastatin Calcium [Crestor 20 mg Tablet] 20 mg PO QHS 04/27/17 [History] Triamcinolone Acetonide [Aristocort 0.1% Cream] 1 applic TOP BIDP PRN 04/27/17 [ History] Valsartan [Diovan 80 mg Tablet] 80 mg PO QPM 04/27/17 [History] Past Medical History - General Information source: Patient - Social History Smoking Status: Never Smoker Cigarette use (# per day): No Frequency of alcohol use: None Drug Abuse: None Lives with: Family Family History: Reviewed & Not Pertinent - Past Medical History Cardiac Medical History: Reports: Hx Hypercholesterolemia Denies: Hx Coronary Artery Disease, Hx Heart Attack, Hx Hypertension Pulmonary Medical History: Denies: Hx Asthma, Hx Bronchitis, Hx COPD, Hx Pneumonia Neurological Medical History: Denies: Hx Cerebrovascular Accident, Hx Seizures Endocrine Medical History: Reports: Hx Diabetes Mellitus Type 2 Renal/ Medical History: Denies: Hx Peritoneal Dialysis Malignancy Medical History: Reports: Hx Ovarian Cancer - Patient had a total hysterectomy and chemo for ovarian cancer in 2007. Musculoskeltal Medical History: Reports Hx Arthritis Psychiatric Medical History: Denies: Hx Depression Past Surgical History: Reports: Hx Abdominal Surgery, Hx Hysterectomy. Denies: Hx Pacemaker - Immunizations Hx Diphtheria, Pertussis, Tetanus Vaccination: No Hx Pneumococcal Vaccination: 02/15/17 Review of Systems - Review of Systems Constitutional: No symptoms reported EENT: No symptoms reported Cardiovascular: No symptoms reported Respiratory: No symptoms reported Gastrointestinal: No symptoms reported Genitourinary: No symptoms reported Female Genitourinary: No symptoms reported Musculoskeletal: See HPI Skin: No symptoms reported Hematologic/Lymphatic: No symptoms reported Neurological/Psychological: No symptoms reported Physical Exam - Vital signs Vitals: Temp Pulse Resp BP Pulse Ox 97.9 F 88 18 122/64 98 04/27/17 10:25 04/27/17 10:25 04/27/17 10:25 04/27/17 10:25 04/27/17 10:25 Interpretation: Normal - General General appearance: Appears well, Alert - HEENT Head: Normocephalic, Atraumatic Eyes: Normal Pupils: PERRL - Respiratory Respiratory status: No respiratory distress Chest status: Nontender Breath sounds: Normal Chest palpation: Normal - Cardiovascular Rhythm: Regular Heart sounds: Normal auscultation Murmur: No - Abdominal Inspection: Normal Distension: No distension Bowel sounds: Normal Tenderness: Nontender Organomegaly: No organomegaly - Back Back: Normal, Nontender - Extremities General upper extremity: Normal inspection, Nontender, Normal color, Normal ROM , Normal temperature General lower extremity: Normal inspection, Nontender, Tender, Normal color, Normal temperature, Normal weight bearing, Other - Tenderness to palpation right hip. No: Normal ROM, Cece's sign - Neurological Neuro grossly intact: Yes Cognition: Normal Orientation: AAOx4 Radha Coma Scale Eye Opening: Spontaneous Radha Coma Scale Verbal: Oriented Telephone Coma Scale Motor: Obeys Commands Radha Coma Scale Total: 15 Speech: Normal Motor strength normal: LUE, RUE, LLE, RLE Sensory: Normal - Psychological Associated symptoms: Normal affect, Normal mood - Skin Skin Temperature: Warm Skin Moisture: Dry Skin Color: Normal Course - Re-evaluation Re-evalutation: 04/27/17 15:14 She has subcapital fracture of the right hip. Will do preop labs. Consult With orthopedic surgery. Pain control. Reassess. N.p.o. at this time. 04/27/17 15:18 Laboratory 04/27/17 04/27/17 04/27/17 11:25 14:41 14:41 WBC 4.9 RBC 3.89 Hgb 12.3 Hct 35.8 L MCV 92 MCH 31.6 MCHC 34.3 RDW 13.6 Plt Count 135 L Seg Neutrophils % 82.2 H Lymphocytes % 13.0 Monocytes % 4.4 Eosinophils % 0.1 Basophils % 0.3 Absolute Neutrophils 4.1 Absolute Lymphocytes 0.6 Absolute Monocytes 0.2 Absolute Eosinophils 0.0 Absolute Basophils 0.0 PT 13.6 INR 0.97 APTT 26.0 Urine Color STRAW Urine Appearance CLEAR Urine pH 5.0 Ur Specific [place] 1.008 Urine Protein NEGATIVE Urine Glucose (UA) NEGATIVE Urine Ketones NEGATIVE Urine Blood SMALL H Urine Nitrite NEGATIVE Urine Bilirubin NEGATIVE Urine Urobilinogen NEGATIVE Ur Leukocyte Esterase NEGATIVE Urine WBC (Auto) 0 Urine RBC (Auto) 0 Squamous Epi Cells Auto <1 Urine Mucus (Auto) RARE Urine Ascorbic Acid NEGATIVE Hip/Pelvis X-Ray 04/27/17 11:04 IMPRESSION: Subcapital fracture right femoral neck. Consult with Dr. Melvin with orthopedic surgery. Will consult with hospitalist as well for admit. 04/27/17 19:26 - Vital Signs Vital signs: Temp Pulse Resp BP Pulse Ox 97.9 F 88 16 106/58 L 98 04/27/17 10:25 04/27/17 10:25 04/27/17 19:01 04/27/17 19:00 04/27/17 19:01 - Laboratory Result Diagrams: 04/27/17 14:41 04/27/17 14:41 Laboratory results interpreted by me: 04/27/17 04/27/17 04/27/17 11:25 14:41 14:41 Hct 35.8 L Plt Count 135 L Seg Neutrophils % 82.2 H Total Protein 6.0 L Urine Blood SMALL H - EKG Interpretation by Co EKG shows normal: Sinus rhythm, Intervals, QRS Complexes, ST-T Waves [place]/QRS: Left axis deviation Discharge - Discharge Clinical Impression: Closed right hip fracture Qualifiers: Encounter type: initial encounter Qualified Code(s): S72.001A - Fracture of unspecified part of neck of right femur, initial encounter for closed fracture Condition: Good Disposition: ADMITTED INPATIENT Admitting Provider: Hospitalist Unit Admitted: Surgical Floor - [place]
[2017-04-27 11:52] LABS: APPEARANCE,URINE CLEAR; BILIRUBIN,URINE NEGATIVE (NEGATIVE); COLOR,URINE STRAW; GLUCOSE, URINE NEGATIVE (NEGATIVE); KETONES,URINE NEGATIVE (NEGATIVE); LEUKOCYTE ESTERASE,URINE NEGATIVE (NEGATIVE); NITRITE,URINE NEGATIVE (NEGATIVE); PROTEIN,URINE NEGATIVE (NEGATIVE); URINE SPECIFIC GRAVITY 1.008; UROBILINOGEN,URINE NEGATIVE mg/dL (<2.0)
[2017-04-27] MEDS ORDERED: FENTANYL CITRATE INJ/PF 100 MCG/2 ML AMPUL IM ONE (12:39)
[2017-04-27] MEDS ORDERED: HYDROCODONE/ACETAMINOPHEN 5-325 MG TABLET PO ONE (12:39)
--- NOTE | 2017-04-27 13:32 | RADIOLOGY REPORT (SQ) ---
EXAM DESCRIPTION: HIP RIGHT AP/LATERAL COMPLETED DATE/TIME: 04/27/2017 1:20 pm REASON FOR STUDY: hip pain COMPARISON: None. NUMBER OF VIEWS: Two views. TECHNIQUE: AP pelvis and additional frog-leg view of the right hip. LIMITATIONS: None. FINDINGS: MINERALIZATION: Normal. RIGHT HIP: Subcapital fracture femoral neck. LEFT HIP: No fracture or dislocation. No worrisome bone lesions. PUBIS AND ISCHIUM: No fracture. PELVIS: No fracture. SACRUM: No fracture or dislocation. No worrisome bone lesions. LOWER LUMBAR SPINE: No fracture or dislocation. No worrisome bone lesions. No significant disc disea se. SOFT TISSUES: No findings. OTHER: No other significant finding. IMPRESSION: Subcapital fracture right femoral neck. TECHNICAL DOCUMENTATION: JOB ID: [id number] [employer]- All Rights Reserved
--- NOTE | 2017-04-27 14:03 | EKG REPORT ---
SEVERITY:- OTHERWISE NORMAL ECG - SINUS RHYTHM BORDERLINE LEFT AXIS DEVIATION : Confirmed by: Geraldo Mejia MD 27-Apr-2017 14:02:29
[2017-04-27 14:59] LABS: ABSOLUTE LYMPHOCYTES (AUTO) 0.6 10^3/uL (0.5-4.7); ABSOLUTE MONOCYTES (AUTO) 0.2 10^3/uL (0.1-1.4); ABSOLUTE NEUT (AUTO) 4.1 10^3/uL (1.7-8.2); BASOPHILS % (AUTO) 0.3 % (0-2); EOSINOPHILS % (AUTO) 0.1 % (0-6); HEMATOCRIT 35.8 % (36.0-47.0); HEMOGLOBIN 12.3 g/dL (12.0-15.5); MEAN CORPUSCULAR HEMOGLOBIN 31.6 pg (27.0-33.4); MEAN CORPUSCULAR HGB CONC 34.3 g/dL (32.0-36.0); MEAN CORPUSCULAR VOLUME 92 fl (80-97); MONOCYTES % (AUTO) 4.4 % (3-13); PLATELET COUNT 135 10^3/uL (150-450); RED BLOOD COUNT 3.89 10^6/uL (3.72-5.28); RED CELL DISTRIBUTION WIDTH 13.6 % (11.5-14.0); SEGMENTED NEUTROPHILS % (AUTO) 82.2 % (42-78); TOTAL CELLS COUNTED % (AUTO) 100 %; WHITE BLOOD COUNT 4.9 10^3/uL (4.0-10.5)
[2017-04-27 15:05] LABS: INTERNATIONAL RATION (INR) 0.97; PROTHROMBIN TIME 13.6 SEC (11.4-15.4)
[2017-04-27 15:23] LABS: ALANINE AMINOTRANSFERASE 25 U/L (9-52); ALBUMIN 3.7 g/dL (3.5-5.0); ALKALINE PHOSPHATASE 78 U/L (38-126); ANION GAP 10 (5-19); ASPARTATE AMINO TRANSFERASE 25 U/L (14-36); BILIRUBIN,DIRECT 0.3 mg/dL (0.0-0.4); BILIRUBIN,TOTAL 0.6 mg/dL (0.2-1.3); BLOOD UREA NITROGEN 17 mg/dL (7-20); CALCIUM 9.6 mg/dL (8.4-10.2); CARBON DIOXIDE 27 mmol/L (22-30); CHLORIDE 103 mmol/L (98-107); GLUCOSE 103 mg/dL (75-110); POTASSIUM 4.6 mmol/L (3.6-5.0); SODIUM 139.8 mmol/L (137-145)
--- NOTE | 2017-04-27 15:28 | PDOC CONSULTATION ---
History of Present Illness Admission Date/PCP: BELÉN MIN MD Patient complains of: Right hip pain History of Present Illness: VINOD MCCARTHY is a 76 year old female who sustained a fall onto her right hip while in her driveway yesterday. She then subsequently sustained a second fall but after the second fall she was unable to ambulate. She was brought to the emergency room where x-rays demonstrated a fracture. Patient states her current pain is tolerable but worse with motion. She denies numbness or tingling. Pain 5/5 with motion. Denies chest pain shortness of breath. Denies headache dizziness or loss of consciousness. Denies head trauma. Past Medical History Cardiac Medical History: Reports: Hyperlipidema Denies: Coronary Artery Disease, Myocardial Infarction, Hypertension Pulmonary Medical History: Denies: Asthma, Bronchitis, Chronic Obstructive Pulmonary Disease (COPD), Pneumonia Neurological Medical History: Denies: Seizures Endocrine Medical History: Reports: Diabetes Mellitus Type 2 Malignancy Medical History: Reports: Ovarian Cancer - Patient had a total hysterectomy and chemo for ovarian cancer in 2007. Musculoskeltal Medical History: Reports: Arthritis Psychiatric Medical History: Denies: Depression Hematology: Reports: Anemia - yrs ago Past Surgical History Past Surgical History: Reports: Hysterectomy Denies: Pacemaker Social History Lives with: Family Smoking Status: Never Smoker Frequency of Alcohol Use: None Hx Recreational Drug Use: No Hx Prescription Drug Abuse: No Family History Family History: Reviewed & Not Pertinent Parental Family History Reviewed: No Children Family History Reviewed: No Sibling(s) Family History Reviewed.: No Medication/Allergy Home Medications: Cetirizine HCl [Zyrtec 10 mg Tablet] 10 mg PO DAILY 12/29/16 Gabapentin [Neurontin 300 mg Capsule] 300 mg PO Q8HP PRN 12/29/16 Hydrocodone/Acetaminophen [[place] 10-325 mg Tablet] 0.5 tab PO Q8HP PRN 12/29/16 Levothyroxine Sodium [Levo-T] 50 mcg PO DAILY 12/29/16 [place]-3 Fatty Acids/Fish Oil [Theragran-M 1,200 mg Softgel] 1 cap PO DAILY 12/29 Rosuvastatin Calcium [Crestor 20 mg Tablet] 20 mg PO QHS 12/29/16 Valsartan [Diovan 80 mg Tablet] 80 mg PO QPM 12/29/16 Lansoprazole [Prevacid] 30 mg PO DAILY 01/12/17 Allergies/Adverse Reactions: Sulfa (Sulfonamide Antibiotics) Allergy (Unknown, Verified 02/20/17 08:22) rash oxycodone HCl [From Percocet] Adverse Reaction (Intermediate, Verified 02/20/17 08:22) Hallucinations Review of Systems Constitutional: ABSENT: chills, fever(s), headache(s), weight gain, weight loss Eyes: ABSENT: visual disturbances Ears: ABSENT: hearing changes Cardiovascular: ABSENT: chest pain, dyspnea on exertion, edema, orthropnea, palpitations Respiratory: ABSENT: cough, hemoptysis Gastrointestinal: ABSENT: abdominal pain, constipation, diarrhea, hematemesis, hematochezia, nausea, vomiting Genitourinary: ABSENT: dysuria, hematuria Integumentary: ABSENT: rash, wounds Neurological: ABSENT: abnormal gait, abnormal speech, confusion, dizziness, focal weakness, syncope Psychiatric: ABSENT: anxiety, depression, homidical ideation, suicidal ideation Endocrine: ABSENT: cold intolerance, heat intolerance, menstrual abnormalities, polydipsia, polyuria Hematologic/Lymphatic: ABSENT: easy bleeding, easy bruising, lymphadenopathy Physical Exam Vital Signs: Temp Pulse Resp BP Pulse Ox 97.9 F 88 21 H 126/85 H 92 04/27/17 10:25 04/27/17 10:25 04/27/17 14:00 04/27/17 11:01 04/27/17 14:00 General appearance: PRESENT: no acute distress, well-developed, well-nourished Head exam: PRESENT: atraumatic, normocephalic Eye exam: PRESENT: conjunctiva pink, EOMI, PERRLA. ABSENT: scleral icterus Ear exam: PRESENT: normal external ear exam Mouth exam: PRESENT: moist, tongue midline Neck exam: PRESENT: full ROM. ABSENT: carotid bruit, JVD, lymphadenopathy, thyromegaly Respiratory exam: PRESENT: unlabored Cardiovascular exam: PRESENT: RRR. ABSENT: diastolic murmur, rubs, systolic murmur Pulses: PRESENT: normal dorsalis pedis pul, +2 pedal pulses bilateral Vascular exam: PRESENT: normal capillary refill GI/Abdominal exam: PRESENT: normal bowel sounds, soft. ABSENT: distended, guarding, mass, organolmegaly, rebound, tenderness Rectal exam: PRESENT: deferred Musculoskeletal exam: PRESENT: other - Right hip: Short externally rotated. Positive logroll. No calf tenderness. Intact plantar flexion/dorsiflexion. Small chronic bruising along the lateral aspect of the knee. Neurological exam: PRESENT: alert, awake, oriented to person, oriented to place , oriented to time, oriented to situation, CN II-XII grossly intact. ABSENT: motor sensory deficit Psychiatric exam: PRESENT: appropriate affect, normal mood. ABSENT: homicidal ideation, suicidal ideation Skin exam: PRESENT: dry, intact, warm. ABSENT: cyanosis, rash Results Laboratory Results: 04/27/17 14:41 04/27/17 04/27/17 11:25 14:41 WBC 4.9 RBC 3.89 Hgb 12.3 Hct 35.8 L MCV 92 MCH 31.6 MCHC 34.3 RDW 13.6 Plt Count 135 L Seg Neutrophils % 82.2 H Lymphocytes % 13.0 Monocytes % 4.4 Eosinophils % 0.1 Basophils % 0.3 Absolute Neutrophils 4.1 Absolute Lymphocytes 0.6 Absolute Monocytes 0.2 Absolute Eosinophils 0.0 Absolute Basophils 0.0 Urine Color STRAW Urine Appearance CLEAR Urine pH 5.0 Ur Specific [place] 1.008 Urine Protein NEGATIVE Urine Glucose (UA) NEGATIVE Urine Ketones NEGATIVE Urine Blood SMALL H Urine Nitrite NEGATIVE Ur Leukocyte Esterase NEGATIVE Urine WBC (Auto) 0 Urine RBC (Auto) 0 Impressions: Hip/Pelvis X-Ray 04/27/17 11:04 IMPRESSION: Subcapital fracture right femoral neck. Status: Image reviewed by la - I have reviewed patient's radiographs which demonstrate nondisplaced subcapital femoral neck fracture Assessment & Plan - Diagnosis (1) Fracture of femoral neck, right, closed Qualifiers: Encounter type: initial encounter Qualified Code(s): S72.001A - Fracture of unspecified part of neck of right femur, initial encounter for closed fracture Is this a current diagnosis for this admission?: Yes Plan: Patient sustained a right valgus impacted subcapital femoral neck fracture. Given patient's amatory status in good health I have recommended operative intervention which includes closed reduction percutaneous pinning. Patient will be evaluated by the hospitalist if deemed medically stable for operative intervention will proceed with surgical treatment in 24 hours. Risks and benefits of the operative procedure have been explained to the patient risks including neurovascular risk, postoperative pain, postoperative stiffness, hardware failure requiring revision surgery including arthroplasty, infection, decreased ambulatory status and any unforeseen complication she has verbalized understanding consented for the procedure.
[2017-04-27] MEDS: HYDROMORPHONE HCL INJ/PF 2 MG/ML AMPULE IV PRN ×4 (15:31→21:45)
[2017-04-27] MEDS ORDERED: ONDANSETRON HCL INJ/PF 4 MG/2 ML SDV IV PRN (16:52)
[2017-04-27] MEDS ORDERED: MAG HYDROX/AL HYDROX/SIMETH SUSP 30 ML UDCUP PO PRN (16:52)
[2017-04-27] MEDS ORDERED: IPRATROPIUM/ALBUTEROL 0.5-2.5 MG/3 ML AMPUL NEB PRN (16:52)
[2017-04-27] MEDS ORDERED: ACETAMINOPHEN 325 MG TABLET PO PRN (16:52)
[2017-04-27] MEDS: NORMAL SALINE 1000 ML 1,000 ML IV PRN (17:35)
[2017-04-27] MEDS ORDERED: TRIAMCINOLONE ACETONIDE 0.1% CREAM 15 GM TOP PRN (20:27)
[2017-04-27] MEDS ORDERED: GABAPENTIN 300 MG CAPSULE PO PRN (20:27)
[2017-04-27] MEDS: ATORVASTATIN CALCIUM 40 MG TABLET PO SCH (21:13)
[2017-04-27] MEDS ORDERED: DEXTROSE 40% GEL 15 GM TUBE PO PRN ×2 (21:23)
[2017-04-27] MEDS ORDERED: DEXTROSE 50%-WATER 25 GM/50 ML DISP.SYRIN IV PRN ×2 (21:23)
[2017-04-27] MEDS ORDERED: GLUCAGON,HUMAN RECOMB 1 MG INJ IM PRN (21:23)
--- NOTE | 2017-04-27 21:23 | PDOC H&P ---
History of Present Illness Admission Date/PCP: 04/27/17 15:39 BELÉN MIN MD Patient complains of: Right hip pain History of Present Illness: VINOD MCCARTHY is a 76 year old female history of hypertension, hypothyroidism lipidemia. Presenting after a fall resulting in right hip fracture. Currently patient sustained 2 falls after the second fall patient was unable to ambulate. Patient pain is currently well controlled. Hospitalist was called to admit patient and orthopedics consulted for hip repair. Past Medical History Cardiac Medical History: Reports: Hyperlipidema Denies: Coronary Artery Disease, Myocardial Infarction, Hypertension Pulmonary Medical History: Denies: Asthma, Bronchitis, Chronic Obstructive Pulmonary Disease (COPD), Pneumonia Neurological Medical History: Denies: Seizures Endocrine Medical History: Reports: Diabetes Mellitus Type 2 Malignancy Medical History: Reports: Ovarian Cancer - Patient had a total hysterectomy and chemo for ovarian cancer in 2007. Musculoskeltal Medical History: Reports: Arthritis Psychiatric Medical History: Denies: Depression Hematology: Reports: Anemia - yrs ago Past Surgical History Past Surgical History: Reports: Hysterectomy Denies: Pacemaker Social History Lives with: Family Smoking Status: Never Smoker Frequency of Alcohol Use: None Hx Recreational Drug Use: No Hx Prescription Drug Abuse: No - Advance Directive Resuscitation Status: Full Code Family History Family History: CAD Parental Family History Reviewed: No Children Family History Reviewed: No Sibling(s) Family History Reviewed.: No Medication/Allergy Home Medications: Fluticasone Propionate [Flonase Nasal [place] 50 Mcg/[place] 16 gm] 1 spray NASL BID 04/27/17 Gabapentin [Neurontin 300 mg Capsule] 300 mg PO Q8HP PRN 04/27/17 Hydrocodone/Acetaminophen [[place] 10-325 mg Tablet] 0.5 tab PO Q8HP PRN 04/27/17 Lansoprazole [Prevacid 30 mg Odt Tablet] 30 mg PO BID 04/27/17 Levothyroxine Sodium [Synthroid 0.05 mg Tablet] 0.05 mg PO Q6AM 04/27/17 Rosuvastatin Calcium [Crestor 20 mg Tablet] 20 mg PO QHS 04/27/17 Triamcinolone Acetonide [Aristocort 0.1% Cream] 1 applic TOP BIDP PRN 04/27/17 Valsartan [Diovan 80 mg Tablet] 80 mg PO QPM 04/27/17 Allergies/Adverse Reactions: Sulfa (Sulfonamide Antibiotics) Allergy (Unknown, Verified 02/20/17 08:22) rash oxycodone HCl [From Percocet] Adverse Reaction (Intermediate, Verified 02/20/17 08:22) Hallucinations Review of Systems Constitutional: ABSENT: chills, fever(s), headache(s), weight gain, weight loss Eyes: ABSENT: visual disturbances Ears: ABSENT: hearing changes Cardiovascular: ABSENT: chest pain, dyspnea on exertion, edema, orthropnea, palpitations Respiratory: ABSENT: cough, hemoptysis Gastrointestinal: ABSENT: abdominal pain, constipation, diarrhea, hematemesis, hematochezia, nausea, vomiting Genitourinary: ABSENT: dysuria, hematuria Musculoskeletal: PRESENT: other - Right hip pain. ABSENT: joint swelling Integumentary: ABSENT: rash, wounds Neurological: ABSENT: abnormal gait, abnormal speech, confusion, dizziness, focal weakness, syncope Psychiatric: ABSENT: anxiety, depression, homidical ideation, suicidal ideation Endocrine: ABSENT: cold intolerance, heat intolerance, polydipsia, polyuria Hematologic/Lymphatic: ABSENT: easy bleeding, easy bruising Physical Exam Vital Signs: Temp Pulse Resp BP Pulse Ox 97.9 F 88 16 106/58 L 98 04/27/17 10:25 04/27/17 10:25 04/27/17 19:01 04/27/17 19:00 04/27/17 19:01 Intake & Output 04/26/17 04/27/17 04/28/17 06:59 06:59 06:59 Weight 74.843 kg General appearance: PRESENT: no acute distress, well-developed, well-nourished Head exam: PRESENT: atraumatic, normocephalic Eye exam: PRESENT: conjunctiva pink, EOMI, PERRLA. ABSENT: scleral icterus Ear exam: PRESENT: normal external ear exam Mouth exam: PRESENT: moist, tongue midline Neck exam: ABSENT: carotid bruit, JVD, lymphadenopathy, thyromegaly Respiratory exam: PRESENT: clear to auscultation jose luis. ABSENT: rales, rhonchi, wheezes Cardiovascular exam: PRESENT: RRR. ABSENT: diastolic murmur, rubs, systolic murmur Pulses: PRESENT: normal dorsalis pedis pul Vascular exam: PRESENT: normal capillary refill GI/Abdominal exam: PRESENT: normal bowel sounds, soft. ABSENT: distended, guarding, mass, organolmegaly, rebound, tenderness Rectal exam: PRESENT: deferred Gentrourinary exam: PRESENT: indwelling catheter Extremities exam: PRESENT: other - Tenderness on palpation on examination of the right hip. ABSENT: calf tenderness, clubbing, pedal edema Neurological exam: PRESENT: alert, awake, oriented to person, oriented to place. ABSENT: motor sensory deficit Psychiatric exam: PRESENT: appropriate affect. ABSENT: homicidal ideation, suicidal ideation Skin exam: PRESENT: dry, intact, warm. ABSENT: cyanosis, rash Results Laboratory Results: 04/27/17 04/27/17 04/27/17 14:41 14:41 14:41 WBC 4.9 RBC 3.89 Hgb 12.3 Hct 35.8 L MCV 92 MCH 31.6 MCHC 34.3 RDW 13.6 Plt Count 135 L PT 13.6 INR 0.97 APTT 26.0 Sodium 139.8 Potassium 4.6 Chloride 103 Carbon Dioxide 27 Anion Gap 10 BUN 17 Creatinine 0.81 Est GFR ( Amer) > 60 Est GFR (Non-Af Amer) > 60 Glucose 103 Calcium 9.6 Total Bilirubin 0.6 Direct Bilirubin 0.3 AST 25 ALT 25 Alkaline Phosphatase 78 Total Protein 6.0 L Albumin 3.7 Impressions: Hip/Pelvis X-Ray 04/27/17 11:04 IMPRESSION: Subcapital fracture right femoral neck. Assessment & Plan - Diagnosis (1) Closed right hip fracture Qualifiers: Encounter type: initial encounter Qualified Code(s): S72.001A - Fracture of unspecified part of neck of right femur, initial encounter for closed fracture Is this a current diagnosis for this admission?: Yes Plan: Right hip fracture sustained after a fall. Orthopedics already consulted. Plan is for intervention in 24 hours. Following that patient will undergo PT OT consultation with rehab. Continue pain management. SCDs for DVT prophylaxis. DVT prophylaxis per orthopedic recommendation. (2) Preoperative clearance Is this a current diagnosis for this admission?: Yes Plan: She is undergoing an intermediate risk surgery. Based on the revised cardiac risk index patient has 1 of the risk factors which is cerebrovascular disease. Patient had imaging done in 2013 which showed small vessel disease of the brain but no obvious infarct. EKG was completed and was normal. Patient will be continued on her statin. Patient antihypertensive is being held and can be resumed immediately following surgery if blood pressures are appropriate. From a medical standpoint patient is cleared for surgery. (3) Lipidemia Is this a current diagnosis for this admission?: Yes Plan: Continue patient's statin. (4) Hypertension Qualifiers: Hypertension type: essential hypertension Qualified Code(s): I10 - Essential (primary) hypertension Is this a current diagnosis for this admission?: Yes Plan: Patient blood pressure stable. Will hold for some for now and resume following surgery if blood pressure stable. (5) Hypothyroidism Is this a current diagnosis for this admission?: Yes Plan: Continue thyroid replacement. (6) GERD (gastroesophageal reflux disease) Is this a current diagnosis for this admission?: Yes Plan: Continue PPI (7) Diabetes Qualifiers: Diabetes mellitus type: type 2 Is this a current diagnosis for this admission?: Yes Plan: Patient with type 2 diabetes controlled with diet. Will monitor and treat with sliding scale insulin as indicated. - Time Time Spent: 30 to 50 Minutes Anticipated discharge: SNF Within: Other - Inpatient Certification Medical Necessity: Need for Surgery
[2017-04-27] MEDS ORDERED: (PENDING PHARMACY ID) (Rosuvastatin Calcium [Crestor 20 Mg Tablet] 20 MG) PO SCH (22:00)
[2017-04-28] MEDS: HYDROMORPHONE HCL INJ/PF 2 MG/ML AMPULE IV PRN ×4 (00:51→21:36)
[2017-04-28] MEDS: LANSOPRAZOLE 30 MG TAB.RAP.DR PO SCH (05:04)
[2017-04-28] MEDS: LEVOTHYROXINE SODIUM 0.05 MG TABLET PO SCH (05:04)
[2017-04-28] MEDS: NORMAL SALINE 1000 ML 1,000 ML IV PRN ×2 (06:24→14:31)
[2017-04-28 06:30] LABS: ABSOLUTE EOSINOPHILS # (AUTO) 0.1 10^3/uL (0.0-0.6); ABSOLUTE LYMPHOCYTES (AUTO) 0.8 10^3/uL (0.5-4.7); ABSOLUTE MONOCYTES (AUTO) 0.3 10^3/uL (0.1-1.4); ABSOLUTE NEUT (AUTO) 2.4 10^3/uL (1.7-8.2); BASOPHILS % (AUTO) 0.6 % (0-2); HEMATOCRIT 31.7 % (36.0-47.0); LYMPHOCYTES % (AUTO) 21.8 % (13-45); MEAN CORPUSCULAR HEMOGLOBIN 32.3 pg (27.0-33.4); MEAN CORPUSCULAR HGB CONC 34.7 g/dL (32.0-36.0); MEAN CORPUSCULAR VOLUME 93 fl (80-97); MONOCYTES % (AUTO) 7.3 % (3-13); PLATELET COUNT 114 10^3/uL (150-450); RED BLOOD COUNT 3.41 10^6/uL (3.72-5.28); RED CELL DISTRIBUTION WIDTH 13.8 % (11.5-14.0); SEGMENTED NEUTROPHILS % (AUTO) 68.3 % (42-78); TOTAL CELLS COUNTED % (AUTO) 100 %; WHITE BLOOD COUNT 3.5 10^3/uL (4.0-10.5)
[2017-04-28 07:03] LABS: ANION GAP 11 (5-19); BLOOD UREA NITROGEN 15 mg/dL (7-20); CALCIUM 9.1 mg/dL (8.4-10.2); CARBON DIOXIDE 26 mmol/L (22-30); CHLORIDE 104 mmol/L (98-107); GLUCOSE 80 mg/dL (75-110); POTASSIUM 4.1 mmol/L (3.6-5.0); SODIUM 140.5 mmol/L (137-145)
[2017-04-28] MEDS ORDERED: FENTANYL CITRATE INJ/PF 100 MCG/2 ML AMPUL ONE (07:28)
[2017-04-28] MEDS ORDERED: PROPOFOL INJ 200 MG/20 ML VIAL IV ONE (07:29)
[2017-04-28] MEDS ORDERED: MIDAZOLAM 2 MG/2 ML INJ ONE (07:29)
[2017-04-28] MEDS ORDERED: ACETAMINOPHEN 100 ML IV ONE (07:29)
[2017-04-28] MEDS ORDERED: KETOROLAC TROMETHAMINE 60 MG/2 ML SDV ONE (07:29)
[2017-04-28] MEDS ORDERED: FENTANYL CITRATE INJ/PF 100 MCG/2 ML AMPUL IV PRN ×3 (07:43)
[2017-04-28] MEDS ORDERED: MEPERIDINE HCL/PF INJ 25 MG/1 ML DISP.SYRIN IV PRN (07:43)
[2017-04-28] MEDS ORDERED: DIPHENHYDRAMINE HCL 50 MG/ML VIAL IV PRN (07:43)
[2017-04-28] MEDS ORDERED: MORPHINE SULFATE 10 MG/ML INJ IV PRN (07:43)
[2017-04-28] MEDS ORDERED: ONDANSETRON HCL INJ/PF 4 MG/2 ML SDV IV PRN (07:43)
[2017-04-28] MEDS ORDERED: PROMETHAZINE HCL INJ 25 MG/1 ML VIAL IV PRN (07:43)
[2017-04-28] MEDS ORDERED: CEFAZOLIN INJ 1 GM VIAL ONE (08:09)
[2017-04-28] MEDS ORDERED: IBUPROFEN 800 MG TABLET ONE (08:15)
--- NOTE | 2017-04-28 10:06 | Operative Report ---
Operative Report PREOPERATIVE DIAGNOSIS: Right subcapital femoral neck fracture POSTOPERATIVE DIAGNOSIS: Same OPERATION: Closed reduction percutaneous pinning right subcapital femoral neck fracture SURGEON: HUMBERTO POWELL ANESTHESIA: Spinal COMPLICATIONS: None ESTIMATED BLOOD LOSS: <25cc PROCEDURE: Indication for above procedure: 76-year-old female who sustained a fall onto her right hip. She was unable to ambulate and brought to the emergency room where x-rays demonstrated a femoral neck fracture. On consultation we discussed treatment options including operative versus nonoperative intervention. Risks and benefits were explained to the patient who verbalized understanding consented for the procedure. Procedure In Detail: Patient was seen and evaluated in the preoperative holding area. The RIGHT lower extremity was initialized and marked. Patient received 2g of Ancef IV for bacterial prophylaxis. Patient was taken back to the operative room where transferred to the operative table and placed under general anesthesia. Once they were adequately anesthetized the right lower extremity is placed in a flexed adducted external rotated position and carefully padded. The left lower extremity was placed in traction. A surgical team debriefing was performed ensuring all instrumentation was available, the surgical procedure was discussed with possible concerns reviewed. Traction, adduction and internal rotation of the lower extremity was done C-arm fluoroscopy was used confirming anatomic reduction of the femoral neck fracture. The lower extremity was prepped with ChloraPrep and draped in a sterile fashion. A timeout was done identifying correct patient, procedure and extremity everyone in attendance agree with this and verbalized no concerns. Surgical incision was made careful dissection was done through the fascia down to the lateral cortex of the femur. With the use of a threaded K wire I drilled along the more superior anterior aspect of the neck crossing the fracture line. Lateral projection was then done confirming an anterior superior placed wire. I then used the aiming device and placed a second wire posterior and superior and lastly a wire was placed along the inferior aspect of the neck along the calcar. This gave me a inverse triangular configuration. AP and lateral projections were done confirming appropriate placement of my guidewires. I then placed 3 partially-threaded 6.5 mm cannulated screws lengths being in 95, 90, 90. I got excellent fixation across the fracture into the subchondral bone. AP lateral radiographs were done demonstrating no evidence of interarticular screw penetration. Then under live fluoroscopy the hip was ranged to confirm there is no evidence of intra-articular penetration. I then copiously irrigated the wound with normal saline. A peripheral vasculature was carefully coagulated. The deep fascia was closed with interrupted 2-0 Vicryl suture. Skin was closed with a running subcuticular 3-0 Monocryl suture which was reinforced with Dermabond and Steri-Strips. A OpSite dressing was then placed. Postoperative plan: Patient will follow in the office in 10-14 days which point we will obtain radiographs. Patient will begin 50% WB right lower extremity postoperatively.
--- NOTE | 2017-04-28 12:46 | RADIOLOGY REPORT (SQ) ---
EXAM DESCRIPTION: NO CHG FLUORO; HIP RIGHT AP/LATERAL COMPLETED DATE/TIME: 04/28/2017 10:39 am REASON FOR STUDY: RT HIP PERCUTANEOUS PINNING COMPARISON: 04/27/2017. FLUOROSCOPY TIME: 1.6 minutes. 3 images saved to PACS. TECHNIQUE: Intra-operative images acquired during surgical procedure to evaluate progress. NUMBER OF IMAGES: 3 images. LIMITATIONS: None. FINDINGS: Images acquired during placement of hardware in the right hip. IMPRESSION: IMAGE(S) OBTAINED DURING PROCEDURE. COMMENT: Quality ID [id number]: Final reports for procedures using fluoroscopy that document radiation exp osure indices, or exposure time and number of fluorographic images (if radiation exposure indices are not available) Please consult full operative report of the attending physician for description of the procedure. TECHNICAL DOCUMENTATION: JOB ID: [id number] [employer]- All Rights Reserved
--- NOTE | 2017-04-28 12:46 | RADIOLOGY REPORT (SQ) ---
EXAM DESCRIPTION: NO CHG FLUORO; HIP RIGHT AP/LATERAL COMPLETED DATE/TIME: 04/28/2017 10:39 am REASON FOR STUDY: RT HIP PERCUTANEOUS PINNING COMPARISON: 04/27/2017. FLUOROSCOPY TIME: 1.6 minutes. 3 images saved to PACS. TECHNIQUE: Intra-operative images acquired during surgical procedure to evaluate progress. NUMBER OF IMAGES: 3 images. LIMITATIONS: None. FINDINGS: Images acquired during placement of hardware in the right hip. IMPRESSION: IMAGE(S) OBTAINED DURING PROCEDURE. COMMENT: Quality ID [id number]: Final reports for procedures using fluoroscopy that document radiation exp osure indices, or exposure time and number of fluorographic images (if radiation exposure indices are not available) Please consult full operative report of the attending physician for description of the procedure. TECHNICAL DOCUMENTATION: JOB ID: [id number] [employer]- All Rights Reserved
[2017-04-28] MEDS: FLUTICASONE NASAL SPRAY 50 MCG/SPRY 120 SPRAY/16 GM NASL SCH ×2 (13:17→17:55)
[2017-04-28] MEDS ORDERED: KETOROLAC TROMETHAMINE INJ/PF 30 MG/1 ML SDV IV ONE (16:13)
[2017-04-28] MEDS ORDERED: GABAPENTIN 300 MG CAPSULE PO ONE (16:30)
--- NOTE | 2017-04-28 20:23 | PDOC PROGRESS REPORT ---
Subjective Progress Note for:: 04/28/17 Subjective:: Patient is 76-year-old female who suffered a right subcapital femoral neck fracture and following a fall. Patient is status post close reduction percutaneous pinning right subcapital femoral neck fracture by Dr. Raul Melvin. Patient tolerated procedure well although she was little hypotensive following procedure. Patient was not in pain when she was seen however started to have pain later on once the spinal anesthesia wore off. Reason For Visit: HIP FRACTURE Physical Exam Vital Signs: Temp Pulse Resp BP Pulse Ox 97.9 F 86 16 125/59 L 95 04/28/17 15:50 04/28/17 19:00 04/28/17 16:50 04/28/17 15:50 04/28/17 16:50 Intake & Output 04/27/17 04/28/17 04/29/17 06:59 06:59 06:59 Intake Total 900 1100 Output Total 150 100 Balance 750 1000 Weight 69.7 kg General appearance: PRESENT: no acute distress, well-developed, well-nourished Head exam: PRESENT: normocephalic Eye exam: PRESENT: EOMI. ABSENT: scleral icterus Mouth exam: PRESENT: moist Neck exam: ABSENT: carotid bruit, JVD, lymphadenopathy, thyromegaly Respiratory exam: PRESENT: clear to auscultation jose luis. ABSENT: rales, rhonchi, wheezes Cardiovascular exam: PRESENT: RRR. ABSENT: diastolic murmur, rubs, systolic murmur Pulses: PRESENT: normal dorsalis pedis pul Vascular exam: PRESENT: normal capillary refill GI/Abdominal exam: PRESENT: normal bowel sounds, soft. ABSENT: distended, guarding, mass, organolmegaly, rebound, tenderness Rectal exam: PRESENT: deferred Extremities exam: PRESENT: full ROM. ABSENT: calf tenderness, clubbing, pedal edema Musculoskeletal exam: PRESENT: other - Right hip dressing Neurological exam: PRESENT: alert, awake, oriented to person, oriented to place , oriented to time, oriented to situation, CN II-XII grossly intact, other - Hearing. ABSENT: motor sensory deficit Psychiatric exam: PRESENT: appropriate affect, normal mood. ABSENT: homicidal ideation, suicidal ideation Skin exam: PRESENT: dry, intact, warm. ABSENT: cyanosis, rash Results Laboratory Results: 04/28/17 05:47 04/28/17 05:47 04/28/17 04/28/17 05:47 05:47 WBC 3.5 L RBC 3.41 L Hgb 11.0 L Hct 31.7 L MCV 93 MCH 32.3 MCHC 34.7 RDW 13.8 Plt Count 114 L Seg Neutrophils % 68.3 Lymphocytes % 21.8 Monocytes % 7.3 Eosinophils % 2.0 Basophils % 0.6 Absolute Neutrophils 2.4 Absolute Lymphocytes 0.8 Absolute Monocytes 0.3 Absolute Eosinophils 0.1 Absolute Basophils 0.0 Sodium 140.5 Potassium 4.1 Chloride 104 Carbon Dioxide 26 Anion Gap 11 BUN 15 Creatinine 0.78 Est GFR ( Amer) > 60 Est GFR (Non-Af Amer) > 60 Glucose 80 Calcium 9.1 Impressions: Fluoroscopy 04/28/17 00:00 IMPRESSION: IMAGE(S) OBTAINED DURING PROCEDURE. Hip/Pelvis X-Ray 04/28/17 00:00 IMPRESSION: IMAGE(S) OBTAINED DURING PROCEDURE. Assessment & Plan - Diagnosis (1) Closed right hip fracture Qualifiers: Encounter type: initial encounter Qualified Code(s): S72.001A - Fracture of unspecified part of neck of right femur, initial encounter for closed fracture Is this a current diagnosis for this admission?: Yes Plan: That is post close reduction with percutaneous pinning of the right subcapital femoral neck fracture. Patient started on DVT Edgar prophylaxis with Xarelto. Continue pain management management as blood pressure tolerates. She is to follow-up in office in 10-14 days for repeat x-rays. Patient will begin 50% weightbearing on right lower extremity postoperatively. Consult PT OT. (2) Preoperative clearance Is this a current diagnosis for this admission?: Yes (3) Lipidemia Is this a current diagnosis for this admission?: Yes Plan: Continue patient's statin. (4) Hypertension Qualifiers: Hypertension type: essential hypertension Qualified Code(s): I10 - Essential (primary) hypertension Is this a current diagnosis for this admission?: Yes Plan: Patient blood pressure stable. Will hold for some for now and resume following surgery if blood pressure stable. She was on 80 mg of Diovan nightly. (5) Hypothyroidism Is this a current diagnosis for this admission?: Yes Plan: Continue thyroid replacement. (6) GERD (gastroesophageal reflux disease) Is this a current diagnosis for this admission?: Yes Plan: Continue PPI (7) Diabetes Qualifiers: Diabetes mellitus type: type 2 Is this a current diagnosis for this admission?: Yes Plan: Patient with type 2 diabetes controlled with diet. Will monitor and treat with sliding scale insulin as indicated. - Time Time Spent with patient: Less than 15 minutes Anticipated discharge: SNF
[2017-04-28] MEDS ORDERED: NORMAL SALINE 1000 ML 1,000 ML IV PRN (20:24)
--- NOTE | 2017-04-28 20:25 | PDOC PROGRESS REPORT ---
Subjective Reason For Visit: HIP FRACTURE Physical Exam Vital Signs: Temp Pulse Resp BP Pulse Ox 97.9 F 86 16 125/59 L 95 04/28/17 15:50 04/28/17 19:00 04/28/17 16:50 04/28/17 15:50 04/28/17 16:50 Intake & Output 04/27/17 04/28/17 04/29/17 06:59 06:59 06:59 Intake Total 900 1100 Output Total 150 100 Balance 750 1000 Weight 69.7 kg Results Laboratory Results: 04/28/17 05:47 04/28/17 05:47 04/28/17 04/28/17 05:47 05:47 WBC 3.5 L RBC 3.41 L Hgb 11.0 L Hct 31.7 L MCV 93 MCH 32.3 MCHC 34.7 RDW 13.8 Plt Count 114 L Seg Neutrophils % 68.3 Lymphocytes % 21.8 Monocytes % 7.3 Eosinophils % 2.0 Basophils % 0.6 Absolute Neutrophils 2.4 Absolute Lymphocytes 0.8 Absolute Monocytes 0.3 Absolute Eosinophils 0.1 Absolute Basophils 0.0 Sodium 140.5 Potassium 4.1 Chloride 104 Carbon Dioxide 26 Anion Gap 11 BUN 15 Creatinine 0.78 Est GFR ( Amer) > 60 Est GFR (Non-Af Amer) > 60 Glucose 80 Calcium 9.1 Impressions: Fluoroscopy 04/28/17 00:00 IMPRESSION: IMAGE(S) OBTAINED DURING PROCEDURE. Hip/Pelvis X-Ray 04/28/17 00:00 IMPRESSION: IMAGE(S) OBTAINED DURING PROCEDURE. Assessment & Plan - Diagnosis (1) Closed right hip fracture Qualifiers: Encounter type: initial encounter Qualified Code(s): S72.001A - Fracture of unspecified part of neck of right femur, initial encounter for closed fracture Is this a current diagnosis for this admission?: Yes (2) Preoperative clearance Is this a current diagnosis for this admission?: Yes (3) Lipidemia Is this a current diagnosis for this admission?: Yes (4) Hypertension Qualifiers: Hypertension type: essential hypertension Qualified Code(s): I10 - Essential (primary) hypertension Is this a current diagnosis for this admission?: Yes (5) Hypothyroidism Is this a current diagnosis for this admission?: Yes (6) GERD (gastroesophageal reflux disease) Is this a current diagnosis for this admission?: Yes (7) Diabetes Qualifiers: Diabetes mellitus type: type 2 Is this a current diagnosis for this admission?: Yes (8) Hypotension Is this a current diagnosis for this admission?: Yes Plan: With hypotension following the procedure. Continue gentle IV have eventration however will watch for volume overload. Will resume patient valsartan once blood pressures are more stable. Will take caution with using the narcotics for pain management as this can further lower the blood pressure.
[2017-04-28] MEDS: GABAPENTIN 300 MG CAPSULE PO SCH (21:39)
[2017-04-28] MEDS: RIVAROXABAN 10 MG TABLET PO SCH (21:39)
[2017-04-28] MEDS: ATORVASTATIN CALCIUM 40 MG TABLET PO SCH (21:39)
[2017-04-29] MEDS: LANSOPRAZOLE 30 MG TAB.RAP.DR PO SCH (05:25)
[2017-04-29] MEDS: LEVOTHYROXINE SODIUM 0.05 MG TABLET PO SCH (05:25)
[2017-04-29] MEDS: GABAPENTIN 300 MG CAPSULE PO SCH ×3 (05:25→21:16)
[2017-04-29 05:28] LABS: ABSOLUTE EOSINOPHILS # (AUTO) 0.1 10^3/uL (0.0-0.6); ABSOLUTE LYMPHOCYTES (AUTO) 0.9 10^3/uL (0.5-4.7); ABSOLUTE MONOCYTES (AUTO) 0.2 10^3/uL (0.1-1.4); ABSOLUTE NEUT (AUTO) 2.5 10^3/uL (1.7-8.2); BASOPHILS % (AUTO) 0.7 % (0-2); EOSINOPHILS % (AUTO) 2.4 % (0-6); HEMATOCRIT 28.9 % (36.0-47.0); HEMOGLOBIN 10.2 g/dL (12.0-15.5); LYMPHOCYTES % (AUTO) 23.9 % (13-45); MEAN CORPUSCULAR HEMOGLOBIN 32.6 pg (27.0-33.4); MEAN CORPUSCULAR HGB CONC 35.3 g/dL (32.0-36.0); MEAN CORPUSCULAR VOLUME 92 fl (80-97); PLATELET COUNT 124 10^3/uL (150-450); RED BLOOD COUNT 3.13 10^6/uL (3.72-5.28); RED CELL DISTRIBUTION WIDTH 13.7 % (11.5-14.0); TOTAL CELLS COUNTED % (AUTO) 100 %; WHITE BLOOD COUNT 3.8 10^3/uL (4.0-10.5)
[2017-04-29] MEDS: HYDROMORPHONE HCL INJ/PF 2 MG/ML AMPULE IV PRN (06:00)
[2017-04-29 06:23] LABS: ANION GAP 7 (5-19); BLOOD UREA NITROGEN 18 mg/dL (7-20); CALCIUM 8.7 mg/dL (8.4-10.2); CARBON DIOXIDE 24 mmol/L (22-30); CHLORIDE 108 mmol/L (98-107); GLUCOSE 97 mg/dL (75-110); POTASSIUM 4.2 mmol/L (3.6-5.0); SODIUM 139.1 mmol/L (137-145)
--- NOTE | 2017-04-29 08:12 | PDOC PROGRESS REPORT ---
Subjective Subjective:: Patient currently lying in bed comfortably. Had episode of hypotension yesterday. Denies chest pain or shortness of breath. Denies headache dizziness Reason For Visit: HIP FRACTURE Physical Exam Vital Signs: Temp Pulse Resp BP Pulse Ox 97.9 F 79 16 129/57 H 97 04/29/17 03:34 04/29/17 03:34 04/29/17 03:34 04/29/17 03:34 04/29/17 03:34 Intake & Output 04/28/17 04/29/17 04/30/17 06:59 06:59 06:59 Intake Total 900 1990 Output Total 150 700 Balance 750 1290 Weight 69.7 kg 69.7 kg Musculoskeletal exam: PRESENT: other - Right hip: Dressing clean/dry/intact no erythema or drainage. Minimal thigh swelling. No calf tenderness. Intact plantar flexion/dorsiflexion. Results Laboratory Results: 04/29/17 05:13 04/29/17 05:13 04/29/17 04/29/17 05:13 05:13 WBC 3.8 L RBC 3.13 L Hgb 10.2 L Hct 28.9 L MCV 92 MCH 32.6 MCHC 35.3 RDW 13.7 Plt Count 124 L Seg Neutrophils % 67.0 Lymphocytes % 23.9 Monocytes % 6.0 Eosinophils % 2.4 Basophils % 0.7 Absolute Neutrophils 2.5 Absolute Lymphocytes 0.9 Absolute Monocytes 0.2 Absolute Eosinophils 0.1 Absolute Basophils 0.0 Sodium 139.1 Potassium 4.2 Chloride 108 H Carbon Dioxide 24 Anion Gap 7 BUN 18 Creatinine 0.72 Est GFR ( Amer) > 60 Est GFR (Non-Af Amer) > 60 Glucose 97 Calcium 8.7 Impressions: Fluoroscopy 04/28/17 00:00 IMPRESSION: IMAGE(S) OBTAINED DURING PROCEDURE. Hip/Pelvis X-Ray 04/28/17 00:00 IMPRESSION: IMAGE(S) OBTAINED DURING PROCEDURE. Assessment & Plan - Diagnosis (1) Fracture of femoral neck, right, closed Qualifiers: Encounter type: initial encounter Qualified Code(s): S72.001A - Fracture of unspecified part of neck of right femur, initial encounter for closed fracture Is this a current diagnosis for this admission?: Yes Plan: Status post closed reduction percutaneous pinning right femoral neck fracture #1 pain control have discontinued Dilaudid will continue Neurontin and also give hydrocodone for breakthrough pain. #2 hypotension appreciate hospitalist input on this currently stable #3 physical therapy partial weightbearing right lower extremity #4 Xarelto for DVT prophylaxis #5 discharge planning to [facility] when bed available
[2017-04-29] MEDS: HYDROCODONE/ACETAMINOPHEN 5-325 MG TABLET PO PRN ×3 (08:30→21:17)
[2017-04-29] MEDS: FLUTICASONE NASAL SPRAY 50 MCG/SPRY 120 SPRAY/16 GM NASL SCH ×2 (10:31→17:57)
[2017-04-29] MEDS ORDERED: MORPHINE SULFATE 10 MG/ML INJ ONE (12:43)
[2017-04-29] MEDS: INSULIN LISPRO 100 UNIT/ML 3 ML VIAL SUBCUT PRN (14:22)
--- NOTE | 2017-04-29 16:44 | PDOC PROGRESS REPORT ---
Subjective Progress Note for:: 04/29/17 Subjective:: The patient is a 76-year-old female. She has neuropathy at home and tripped over a cord. She sustained a right hip fracture. She is status post closed reduction with percutaneous pinning of the right subcapital femoral neck. She is receiving DVT prophylaxis with Xarelto. Orthopedics is following. PT is following. Reason For Visit: HIP FRACTURE Physical Exam Vital Signs: Temp Pulse Resp BP Pulse Ox 97.6 F 71 18 111/45 L 96 04/29/17 12:03 04/29/17 14:00 04/29/17 12:03 04/29/17 12:03 04/29/17 12:03 Intake & Output 04/28/17 04/29/17 04/30/17 06:59 06:59 06:59 Intake Total 900 1990 600 Output Total 150 700 300 Balance 750 1290 300 Weight 69.7 kg 69.7 kg Additional comments: The patient appears very spry for her age. She has no cognitive defects. Her facial appearance is unremarkable. Her lungs are clear to auscultation bilaterally. Her cardiac exam is regular without murmurs, gallops or rubs. The abdomen is soft, flat and benign. The lower extremities are warm to touch. The right hip bandage is clean, dry and intact. Results Laboratory Results: 04/29/17 05:13 04/29/17 05:13 04/29/17 04/29/17 05:13 05:13 WBC 3.8 L RBC 3.13 L Hgb 10.2 L Hct 28.9 L MCV 92 MCH 32.6 MCHC 35.3 RDW 13.7 Plt Count 124 L Seg Neutrophils % 67.0 Lymphocytes % 23.9 Monocytes % 6.0 Eosinophils % 2.4 Basophils % 0.7 Absolute Neutrophils 2.5 Absolute Lymphocytes 0.9 Absolute Monocytes 0.2 Absolute Eosinophils 0.1 Absolute Basophils 0.0 Sodium 139.1 Potassium 4.2 Chloride 108 H Carbon Dioxide 24 Anion Gap 7 BUN 18 Creatinine 0.72 Est GFR ( Amer) > 60 Est GFR (Non-Af Amer) > 60 Glucose 97 Calcium 8.7 Impressions: Fluoroscopy 04/28/17 00:00 IMPRESSION: IMAGE(S) OBTAINED DURING PROCEDURE. Hip/Pelvis X-Ray 04/28/17 00:00 IMPRESSION: IMAGE(S) OBTAINED DURING PROCEDURE. Assessment & Plan - Diagnosis (1) Closed right hip fracture Qualifiers: Encounter type: initial encounter Qualified Code(s): S72.001A - Fracture of unspecified part of neck of right femur, initial encounter for closed fracture Is this a current diagnosis for this admission?: Yes Plan: Managed by orthopedics. (2) Diabetes Qualifiers: Diabetes mellitus type: type 2 Is this a current diagnosis for this admission?: Yes Plan: The patient is actually on a regular diet with sliding scale coverage. If her blood sugars are elevated I will change to carbohydrate controlled. (3) GERD (gastroesophageal reflux disease) Is this a current diagnosis for this admission?: Yes Plan: Continue lansoprazole. (4) Hypertension Qualifiers: Hypertension type: essential hypertension Qualified Code(s): I10 - Essential (primary) hypertension Is this a current diagnosis for this admission?: Yes (5) Hypotension Is this a current diagnosis for this admission?: Yes Plan: Improved. We are holding the patient's outpatient hypertensive medications and she continues to receive gentle IV hydration. (6) Hypothyroidism Is this a current diagnosis for this admission?: Yes (7) Lipidemia Is this a current diagnosis for this admission?: Yes Plan: Continue atorvastatin - Time Time Spent with patient: 15-24 minutes - Inpatient Certification Medical Necessity: Need for Neurological Checks, Need for Pain Control - Plan Summary Plan Summary: Patient will be discharged to longterm facility once arrangements have been made.
[2017-04-29] MEDS: RIVAROXABAN 10 MG TABLET PO SCH (21:15)
[2017-04-29] MEDS: ATORVASTATIN CALCIUM 40 MG TABLET PO SCH (21:17)
[2017-04-30] MEDS: HYDROCODONE/ACETAMINOPHEN 5-325 MG TABLET PO PRN ×4 (02:33→20:17)
[2017-04-30 05:52] LABS: ABSOLUTE EOSINOPHILS # (AUTO) 0.1 10^3/uL (0.0-0.6); ABSOLUTE LYMPHOCYTES (AUTO) 0.9 10^3/uL (0.5-4.7); ABSOLUTE MONOCYTES (AUTO) 0.3 10^3/uL (0.1-1.4); ABSOLUTE NEUT (AUTO) 2.2 10^3/uL (1.7-8.2); EOSINOPHILS % (AUTO) 3.1 % (0-6); HEMATOCRIT 27.7 % (36.0-47.0); HEMOGLOBIN 9.6 g/dL (12.0-15.5); LYMPHOCYTES % (AUTO) 26.4 % (13-45); MEAN CORPUSCULAR HEMOGLOBIN 32.2 pg (27.0-33.4); MEAN CORPUSCULAR HGB CONC 34.9 g/dL (32.0-36.0); MEAN CORPUSCULAR VOLUME 92 fl (80-97); MONOCYTES % (AUTO) 7.2 % (3-13); PLATELET COUNT 119 10^3/uL (150-450); RED BLOOD COUNT 2.99 10^6/uL (3.72-5.28); RED CELL DISTRIBUTION WIDTH 13.5 % (11.5-14.0); SEGMENTED NEUTROPHILS % (AUTO) 62.3 % (42-78); TOTAL CELLS COUNTED % (AUTO) 100 %; WHITE BLOOD COUNT 3.6 10^3/uL (4.0-10.5)
[2017-04-30] MEDS: LANSOPRAZOLE 30 MG TAB.RAP.DR PO SCH (06:08)
[2017-04-30] MEDS: GABAPENTIN 300 MG CAPSULE PO SCH ×3 (06:08→22:04)
[2017-04-30] MEDS: LEVOTHYROXINE SODIUM 0.05 MG TABLET PO SCH (06:08)
[2017-04-30 06:35] LABS: ANION GAP 5 (5-19); BLOOD UREA NITROGEN 12 mg/dL (7-20); CARBON DIOXIDE 28 mmol/L (22-30); CHLORIDE 107 mmol/L (98-107); GLUCOSE 102 mg/dL (75-110); POTASSIUM 4.3 mmol/L (3.6-5.0); SODIUM 140.1 mmol/L (137-145)
[2017-04-30] MEDS: FLUTICASONE NASAL SPRAY 50 MCG/SPRY 120 SPRAY/16 GM NASL SCH ×2 (10:10→18:22)
--- NOTE | 2017-04-30 13:29 | PDOC PROGRESS REPORT ---
Subjective Progress Note for:: 04/30/17 Subjective:: The patient is a 76-year-old female. She has neuropathy of her lower extremities and at home and tripped over a cord. She sustained a right hip fracture. She is status post closed reduction with percutaneous pinning of the right subcapital femoral neck. She is receiving DVT prophylaxis with Xarelto. Orthopedics is following. PT is following. She had a bowel movement this morning. Yesterday, she was able to bear weight with the use of a walker. She did have a bad night. She waited too long to ask her pain medication and during this time. Received a bath. When I asked her about her neuropathy she explained that it is persistent after she received chemotherapy for ovarian and pelvic cancer. I also asked her about her mild leukopenia. She is not aware of having any abnormal white blood cell count. Looking back in the labs it looks like she had a low white blood cell count going back to December 2016. Reason For Visit: HIP FRACTURE Physical Exam Vital Signs: Temp Pulse Resp BP Pulse Ox 97.8 F 69 20 113/44 L 97 04/30/17 11:26 04/30/17 11:26 04/30/17 11:26 04/30/17 11:26 04/30/17 11:26 Intake & Output 04/29/17 04/30/17 05/01/17 06:59 06:59 06:59 Intake Total 4540 895 Output Total 1150 1450 Balance 3390 -555 Weight 69.7 kg 73.6 kg Additional comments: The patient appears to be very healthy for her age. Her cognition and mentation are normal. She does not appear to be toxic or in any distress. Her facial appearance is normal. Her lungs are clear to auscultation bilaterally. Her cardiac exam is regular without murmurs, gallops or rubs. The abdomen is soft, flat and benign. No guarding or rebound is noted. The incision site looks excellent with only minimal bruising. The feet are warm to touch. She has no significant lower extremity edema. Skin is otherwise warm, dry and intact without lesions or rashes. Results Laboratory Results: 04/30/17 05:40 04/30/17 05:40 04/30/17 04/30/17 05:40 05:40 WBC 3.6 L RBC 2.99 L Hgb 9.6 L Hct 27.7 L MCV 92 MCH 32.2 MCHC 34.9 RDW 13.5 Plt Count 119 L Seg Neutrophils % 62.3 Lymphocytes % 26.4 Monocytes % 7.2 Eosinophils % 3.1 Basophils % 1.0 Absolute Neutrophils 2.2 Absolute Lymphocytes 0.9 Absolute Monocytes 0.3 Absolute Eosinophils 0.1 Absolute Basophils 0.0 Sodium 140.1 Potassium 4.3 Chloride 107 Carbon Dioxide 28 Anion Gap 5 BUN 12 Creatinine 0.75 Est GFR ( Amer) > 60 Est GFR (Non-Af Amer) > 60 Glucose 102 Calcium 9.0 Impressions: Fluoroscopy 04/28/17 00:00 IMPRESSION: IMAGE(S) OBTAINED DURING PROCEDURE. Hip/Pelvis X-Ray 04/28/17 00:00 IMPRESSION: IMAGE(S) OBTAINED DURING PROCEDURE. Assessment & Plan - Diagnosis (1) Closed right hip fracture Qualifiers: Encounter type: initial encounter Qualified Code(s): S72.001A - Fracture of unspecified part of neck of right femur, initial encounter for closed fracture Is this a current diagnosis for this admission?: Yes Plan: Managed by orthopedics. (2) Diabetes Qualifiers: Diabetes mellitus type: type 2 Is this a current diagnosis for this admission?: Yes Plan: The patient is actually on a regular diet with sliding scale coverage. If her blood sugars are elevated I will change to carbohydrate controlled. (3) GERD (gastroesophageal reflux disease) Is this a current diagnosis for this admission?: Yes Plan: Continue lansoprazole. (4) Hypertension Qualifiers: Hypertension type: essential hypertension Qualified Code(s): I10 - Essential (primary) hypertension Is this a current diagnosis for this admission?: Yes Plan: BP improved. See below. (5) Hypotension Is this a current diagnosis for this admission?: Yes Plan: Improved. We are holding the patient's outpatient hypertensive medications. Today, I will stop supplemental fluids as she is eating and drinking well. (6) Hypothyroidism Is this a current diagnosis for this admission?: Yes Plan: Continue Synthroid. (7) Lipidemia Is this a current diagnosis for this admission?: Yes Plan: Continue atorvastatin (8) Leukopenia Is this a current diagnosis for this admission?: Yes Plan: Mild. No intervention needed at this time. However, this will require ongoing follow-up after discharge. - Time Time Spent with patient: 15-24 minutes - Plan Summary Plan Summary: The patient is stable. She appears to be doing well and I anticipate discharge to [facility] facility in the next 24 hours.
[2017-04-30] MEDS ORDERED: SODIUM CHLORIDE NASAL SPRAY 44 ML NASL PRN (16:49)
[2017-04-30] MEDS ORDERED: LORATADINE 10 MG TABLET PO ONE (18:00)
[2017-04-30] MEDS: INSULIN LISPRO 100 UNIT/ML 3 ML VIAL SUBCUT PRN ×2 (18:22→22:14)
--- NOTE | 2017-04-30 19:54 | PDOC PROGRESS REPORT ---
Subjective Subjective:: Patient currently lying in bed comfortably. States pain significantly improved today. Was able to ambulate in physical therapy. Reason For Visit: HIP FRACTURE Physical Exam Vital Signs: Temp Pulse Resp BP Pulse Ox 98.2 F 78 20 116/47 L 97 04/30/17 15:46 04/30/17 19:00 04/30/17 15:46 04/30/17 15:46 04/30/17 15:46 Intake & Output 04/29/17 04/30/17 05/01/17 06:59 06:59 06:59 Intake Total 4540 895 690 Output Total 1150 1450 450 Balance 3390 -555 240 Weight 69.7 kg 73.6 kg Musculoskeletal exam: PRESENT: other - Right hip: Dressing clean/dry/intact no erythema or drainage. Intact plantar flexion/dorsiflexion. No calf tenderness. Negative Homans. No sensory deficits. Mild thigh swelling. Results Laboratory Results: 04/30/17 05:40 04/30/17 05:40 04/30/17 04/30/17 05:40 05:40 WBC 3.6 L RBC 2.99 L Hgb 9.6 L Hct 27.7 L MCV 92 MCH 32.2 MCHC 34.9 RDW 13.5 Plt Count 119 L Seg Neutrophils % 62.3 Lymphocytes % 26.4 Monocytes % 7.2 Eosinophils % 3.1 Basophils % 1.0 Absolute Neutrophils 2.2 Absolute Lymphocytes 0.9 Absolute Monocytes 0.3 Absolute Eosinophils 0.1 Absolute Basophils 0.0 Sodium 140.1 Potassium 4.3 Chloride 107 Carbon Dioxide 28 Anion Gap 5 BUN 12 Creatinine 0.75 Est GFR ( Amer) > 60 Est GFR (Non-Af Amer) > 60 Glucose 102 Calcium 9.0 Impressions: Fluoroscopy 04/28/17 00:00 IMPRESSION: IMAGE(S) OBTAINED DURING PROCEDURE. Hip/Pelvis X-Ray 04/28/17 00:00 IMPRESSION: IMAGE(S) OBTAINED DURING PROCEDURE. Assessment & Plan - Diagnosis (1) Fracture of femoral neck, right, closed Qualifiers: Encounter type: initial encounter Qualified Code(s): S72.001A - Fracture of unspecified part of neck of right femur, initial encounter for closed fracture Is this a current diagnosis for this admission?: Yes Plan: Status post closed reduction percutaneous pinning right femoral neck fracture 1/ 14/18 #1 pain control have discontinued Dilaudid will continue Neurontin and also give hydrocodone for breakthrough pain. #2 hypotension appreciate hospitalist input on this currently stable #3 physical therapy partial weightbearing right lower extremity #4 Xarelto for DVT prophylaxis #5 discharge planning to residential facility when bed available
[2017-04-30] MEDS: RIVAROXABAN 10 MG TABLET PO SCH (22:04)
[2017-04-30] MEDS: ATORVASTATIN CALCIUM 40 MG TABLET PO SCH (22:04)
[2017-05-01] MEDS: HYDROCODONE/ACETAMINOPHEN 5-325 MG TABLET PO PRN ×3 (04:09→17:38)
[2017-05-01] MEDS: LANSOPRAZOLE 30 MG TAB.RAP.DR PO SCH (05:56)
[2017-05-01] MEDS: LEVOTHYROXINE SODIUM 0.05 MG TABLET PO SCH (05:56)
[2017-05-01] MEDS: GABAPENTIN 300 MG CAPSULE PO SCH ×2 (05:56→13:30)
[2017-05-01 07:12] LABS: HEMATOCRIT 28.2 % (36.0-47.0); HEMOGLOBIN 9.7 g/dL (12.0-15.5); MEAN CORPUSCULAR HGB CONC 34.5 g/dL (32.0-36.0); MEAN CORPUSCULAR VOLUME 93 fl (80-97); PLATELET COUNT 109 10^3/uL (150-450); RED BLOOD COUNT 3.04 10^6/uL (3.72-5.28); RED CELL DISTRIBUTION WIDTH 13.4 % (11.5-14.0); WHITE BLOOD COUNT 3.2 10^3/uL (4.0-10.5)
--- NOTE | 2017-05-01 09:17 | PDOC PROGRESS REPORT ---
Subjective Subjective:: Patient currently lying in bed comfortably. States pain significantly improved today. Was able to ambulate in physical therapy. Reason For Visit: HIP FRACTURE Physical Exam Vital Signs: Temp Pulse Resp BP Pulse Ox 98.2 F 81 18 113/54 L 95 05/01/17 04:02 05/01/17 04:02 05/01/17 04:02 05/01/17 04:02 05/01/17 04:02 Intake & Output 04/30/17 05/01/17 05/02/17 06:59 06:59 06:59 Intake Total 895 1066 Output Total 1450 4110 Balance -555 -974 Weight 73.6 kg 72.8 kg Musculoskeletal exam: PRESENT: other - Right hip: Dressing clean/dry/intact no erythema or drainage. Mild ecchymosis. Intact plantar flexion/dorsiflexion. No sensory deficits. No calf tenderness. Results Laboratory Results: 05/01/17 06:56 04/30/17 05:40 05/01/17 06:56 WBC 3.2 L RBC 3.04 L Hgb 9.7 L Hct 28.2 L MCV 93 MCH 32.0 MCHC 34.5 RDW 13.4 Plt Count 109 L Impressions: Fluoroscopy 04/28/17 00:00 IMPRESSION: IMAGE(S) OBTAINED DURING PROCEDURE. Hip/Pelvis X-Ray 04/28/17 00:00 IMPRESSION: IMAGE(S) OBTAINED DURING PROCEDURE. Assessment & Plan - Diagnosis (1) Fracture of femoral neck, right, closed Qualifiers: Encounter type: initial encounter Qualified Code(s): S72.001A - Fracture of unspecified part of neck of right femur, initial encounter for closed fracture Is this a current diagnosis for this admission?: Yes Plan: Status post closed reduction percutaneous pinning right femoral neck fracture #1 pain control continue Neurontin and hydrocodone for breakthrough pain. #2 physical therapy partial weightbearing right lower extremity #3 Xarelto for DVT prophylaxis #4 discharge planning to long term facility when bed available
[2017-05-01] MEDS ORDERED: LORATADINE 10 MG TABLET PO SCH (10:00)
[2017-05-01] MEDS: FLUTICASONE NASAL SPRAY 50 MCG/SPRY 120 SPRAY/16 GM NASL SCH (10:00)
--- NOTE | 2017-05-01 13:48 | PDOC DISCHARGE SUMMARY ---
General - Admit/Disc Date/PCP Admission Date/Primary Care Provider: 04/27/17 15:39 BELÉN MIN MD Discharge Date: 05/01/17 - Discharge Diagnosis (1) Closed right hip fracture Is this a current diagnosis for this admission?: Yes (2) Diabetes Is this a current diagnosis for this admission?: Yes (3) GERD (gastroesophageal reflux disease) Is this a current diagnosis for this admission?: Yes (4) Hypertension Is this a current diagnosis for this admission?: Yes (5) Hypotension Is this a current diagnosis for this admission?: Yes (6) Hypothyroidism Is this a current diagnosis for this admission?: Yes (7) Lipidemia Is this a current diagnosis for this admission?: Yes (8) Leukopenia Is this a current diagnosis for this admission?: Yes - Additional Information Resuscitation Status: Full Code Discharge Diet: Diabetic Discharge Activity: Supervised Activity Prescriptions: Hydrocodone/Acetaminophen [Woodson 10-325 mg Tablet] 0.5 tab PO Q8HP PRN 5 Days # 7 tablet PRN Reason: For Pain Rivaroxaban [Xarelto 10 mg Tablet] 10 mg PO QHS 30 Days #30 tablet Home Medications: Fluticasone Propionate [Flonase Nasal Holabird 50 Mcg/Holabird 16 gm] 1 spray NASL BID 04/27/17 Gabapentin [Neurontin 300 mg Capsule] 300 mg PO Q8HP PRN 04/27/17 Lansoprazole [Prevacid 30 mg Odt Tablet] 30 mg PO BID 04/27/17 Levothyroxine Sodium [Synthroid 0.05 mg Tablet] 0.05 mg PO Q6AM 04/27/17 Rosuvastatin Calcium [Crestor 20 mg Tablet] 20 mg PO QHS 04/27/17 Triamcinolone Acetonide [Aristocort 0.1% Cream] 1 applic TOP BIDP PRN 04/27/17 Fluticasone Propionate [Flonase Nasal Holabird 50 Mcg/Holabird 16 gm] 1 spray NASL BID spray.pump 05/01/17 Hydrocodone/Acetaminophen [Woodson 10-325 mg Tablet] 0.5 tab PO Q8HP PRN 5 Days # 7 tablet 05/01/17 Loratadine [Claritin 10 mg Tablet] 10 mg PO DAILY tablet 05/01/17 Rivaroxaban [Xarelto 10 mg Tablet] 10 mg PO QHS 30 Days #30 tablet 05/01/17 Sodium Chloride [[place] Nasal Holabird 44 ml Bottle] 1 spray NASL DAILYP PRN bottle 05/01/17 History of Present Illness History of Present Illness: VINOD MCCARTHY is a 76 year old female who has underlying neuropathy associated with a prior diagnosis of ovarian cancer for which she received chemotherapy. The patient tripped over a cord while helping her to clean up the [employer] decorations. She presented with a right hip fracture. She was admitted for surgery. Hospital Course Hospital Course: 04/28/2017 the patient was taken to surgery and underwent a closed reduction with percutaneous pinning of the right subcapital femoral neck by Dr. Melvin. She has been recovering well. She did have mild postoperative hypotension. Her antihypertensives were held during this hospitalization. Her borderline blood pressures are likely secondary to the increase in narcotic use. She is also noted to have mild leukopenia. This was present on the labs back in December 2016. She was scheduled to see her outpatient oncologist in January 2017 but was recovering from her hospitalization and has not yet been back to see her oncologist. She will make a follow-up appointment with her oncologist after she is discharged. Physical Exam Vital Signs: Temp Pulse Resp BP Pulse Ox 98.0 F 80 18 101/51 L 100 05/01/17 11:59 05/01/17 11:59 05/01/17 11:59 05/01/17 11:59 05/01/17 11:59 Intake & Output 04/30/17 05/01/17 05/02/17 06:59 06:59 06:59 Intake Total 895 1066 Output Total 1450 1850 Balance -555 -784 Weight 73.6 kg 72.8 kg Additional comments: The patient is an extremely pleasant, elderly female. She appears to be in good health for her age. Her cognition and mentation are normal. Her facial appearance is unremarkable. Her lungs are noted to be clear to auscultation bilaterally. Her cardiac exam is regular without murmurs, gallops or rubs. The abdomen is noted to be soft and flat. Bowel sounds are present. She does not have guarding or rebound noted and there are no hernias or masses present. The lower extremities are warm to touch without any significant edema. The skin is clean, warm, dry and intact. The surgical incision over the right hip show some bruising but is otherwise clean, dry and intact. Results Laboratory Results: 05/01/17 06:56 04/30/17 05:40 05/01/17 06:56 WBC 3.2 L RBC 3.04 L Hgb 9.7 L Hct 28.2 L MCV 93 MCH 32.0 MCHC 34.5 RDW 13.4 Plt Count 109 L Impressions: Fluoroscopy 04/28/17 00:00 IMPRESSION: IMAGE(S) OBTAINED DURING PROCEDURE. Hip/Pelvis X-Ray 04/28/17 00:00 IMPRESSION: IMAGE(S) OBTAINED DURING PROCEDURE. Plan Discharge Plan: 1. Discharge to [facility] 2. Carbohydrate controlled diet 3. Physical therapy 5 days per week 4. Follow-up with Dr. Melvin in 1-2 weeks 5. Follow-up with primary [facility] homecare after discharge from [facility] facility 6. Follow-up with oncologist after discharge from [facility] facility 7. It is recommended that the patient have a CBC 5 days after discharge from the hospital Time Spent: Less than 30 Minutes
[2017-05-01 17:15] VITALS: BP 111/48
== END 2017-05-01 18:00 | DRG 482 ==
LOC: ER 10:22 → EH 15:39 → 4S 19:56
PROVIDERS: ADMIT Emergency Medicine; ATTEND Emergency Medicine
PROC: 0QS636Z Reposition Right Upper Femur with Intramedullary Internal Fixation Device, Percutaneous Approach (ICD-10-PCS; principal; 2017-04-28 08:00)
DX: S72.011A Unspecified intracapsular fracture of right femur, initial encounter for closed fracture (principal); K21.9 Gastro-esophageal reflux disease without esophagitis; I10 Essential (primary) hypertension; E03.9 Hypothyroidism, unspecified; D72.819 Decreased white blood cell count, unspecified; E78.5 Hyperlipidemia, unspecified; E11.40 Type 2 diabetes mellitus with diabetic neuropathy, unspecified; M19.90 Unspecified osteoarthritis, unspecified site; W01.0XXA Fall on same level from slipping, tripping and stumbling without subsequent striking against object, initial encounter; Y92.014 Private driveway to single-family (private) house as the place of occurrence of the external cause; Z79.899 Other long term (current) drug therapy; Z85.43 Personal history of malignant neoplasm of ovary; Z90.710 Acquired absence of both cervix and uterus; Z88.6 Allergy status to analgesic agent; Z88.2 Allergy status to sulfonamides; Z82.49 Family history of ischemic heart disease and other diseases of the circulatory system
CPT/HCPCS: 01220; 36415; 80048; 80053; 81001; 82962; 85025; 85027; 85610; 85730; 87086; 93005; 93010; 94799; 96372; 99285; G8978-GP; G8979-GP; G8987-GO; G8988-GO; J0131; J0690; J1170; J1815; J1885; J2250; J2270; J2704; J3010; J3490; J7030